=== PATIENT | female | born 1950 | race Caucasian/White ===

== ENCOUNTER 2022-03-27 14:05 | Inpatient (IN) | payer MEDICARE, SELFPAY ==
[2022-03-27 14:06] VITALS: BP 176/101; PULSE 68; RESP 16; TEMP 37.1; O2SAT 95; BMI 25.9
--- NOTE | 2022-03-27 14:14 | EX.ED.DYSGE1 ---
HPI History of Present Illness Chief Complaint: Lower Extremity Injury Detail of Chief Complaint: Fall with right hip injury Informant: patient Onset/Context/Timing Onset: Today Current Severity: Moderate Maximum Severity: Moderate Narrative Narrative: Patient present secondary to right hip injury. She was outside today and lost her balance, falling onto her right side. She is complaining of pain to the right hip. She denies striking her head or loss of consciousness. She reports balance problems with chronic right-sided weakness after a stroke several years ago. She does not take anticoagulants. [facility] Medical History Hx of completed stroke Hyperlipidemia Hypertension Home Medications amlodipine 5 mg tablet 5 mg PO DAILY ##30 05/15/14 [Rx Last Taken Unknown] atorvastatin 80 mg tablet 80 mg PO QHS ##30 05/15/14 [Rx Last Taken Unknown] lisinopril 20 mg tablet 20 mg PO BID ##60 05/15/14 [Rx Last Taken Unknown] Allergy/AdvReac Type Severity Reaction Status Date / Time No Known Allergies Allergy Verified 04/20/14 17:02 Social History Smoking Status: Never smoker ROS ROS ED Constitutional Constitutional ED: Denies chills or fever(s) Eyes Eyes: Denies change in vision or discharge from eye(s) ENT ENT ED: Denies discharge from eye(s), rhinorrhea or sore throat Cardiovascular Cardiovascular: Denies chest pain or palpitations Respiratory/Chest Respiratory/Chest: Denies cough or dyspnea Gastrointestinal Gastrointestinal: Denies abdominal pain, diarrhea, nausea or vomiting Genitourinary Genitourinary ED: Denies difficulty urinating or dysuria Musculoskeletal Musculoskeletal: Reports extremity pain; Denies back pain Integumentary Denies Abrasions or rash Neurologic Neurologic: Denies headache(s) or weakness Allergic/Immunologic Allergic/Immunologic ED: Denies lip swelling or urticaria EXAM Physical Exam Const Vital Signs: 03/27/22 14:06 Temperature 98.8 F Temperature Source Temporal Pulse Rate 68 Respiratory Rate 16 Blood Pressure 176/101 H Blood Pressure Mean 126 Pulse Ox 95 Oxygen Delivery Method Room Air Positive well nourished and well developed General Appearance ED: well developed HEENT Reports normocephalic and head/scalp atraumatic Eyes PERRL and EOMs intact bilaterally Neck supple Chest Wall inspection of chest normal and palpation of chest normal Resp normal respiratory effort and clear to auscultation bilaterally Cardio regular rate and regular rhythm GI normal to inspection, nondistended, normoactive bowel sounds Palpation: soft Extremity Extremity Narrative: Mild tenderness to the right hip. Mild tenderness with logroll. Good distal pulses. Neuro oriented x3 and no sensory deficits noted Neuro Narrative: Chronic right-sided weakness secondary to prior stroke. Sensorium / Orientation: alert Psych mental status grossly normal Skin no rashes or lesions noted MDM MDM MDM Narrative Medical decision making narrative: Patient was given fentanyl and Zofran for pain control. X-ray obtained along with lab work. Lab Data Attestation: I reviewed the patient's lab results. Labs: Laboratory Results - last 24 hr 03/27/22 03/27/22 14:23 14:23 WBC 8.5 RBC 4.30 Hgb 12.5 Hct 37.0 MCV 86.0 MCH 29.1 MCHC 33.8 RDW Std Deviation 43.1 RDW Coeff of Quinten 13.8 Plt Count 263 MPV 9.8 Immature Gran % (Auto) 1.100 H Neut % (Auto) 52.0 Lymph % (Auto) 35.6 [place] % (Auto) 7.8 Eos % (Auto) 3.0 Baso % (Auto) 0.5 Absolute Neuts (auto) 4.4 Absolute Lymphs (auto) 3.01 Nucleated RBC % 0 Sodium 141 Potassium 3.6 Chloride 107 Carbon Dioxide 27.0 Anion Gap 7 BUN 21 H Creatinine 0.71 Estim Creat Clear Calc 41.45 Est GFR (MDRD) Af Amer 103 Est GFR (MDRD) Non-Af 85 BUN/Creatinine Ratio 29.5 H Glucose 138 H Calcium 8.9 Treatment and Re-Evaluation Narrative: Hip and pelvis x-rays per my interpretation reveal a right femoral neck fracture. Lab work is unremarkable. Test results discussed with patient and family at bedside. I will speak with orthopedics as well as hospitalist for admission. Discharge Plan Triage Chief Complaint: Lower Extremity Injury ED Provider: Tomeka Messina Dx/Rx/DC Orders Clinical Impression: Fracture of right hip Prescriptions: No Action amlodipine 5 MG tablet 5 mg PO DAILY Qty: 30 0RF Label Comments: blood pressure atorvastatin 80 MG tablet 80 mg PO QHS Qty: 30 0RF Label Comments: cholesterol lowering lisinopril 20 MG tablet 20 mg PO BID Qty: 60 0RF Label Comments: reduce blood pressure Primary Care Provider: Wolf Puentes Referrals: Wolf Puentes DO [Primary Care Provider] - Disposition Disposition: Acute Care Hospital [facility]
[2022-03-27] MEDS: fentaNYL 100 MCG/2 ML Ampul 25 MCG IV (14:18)
[2022-03-27] MEDS: Ondansetron 4 MG/2 ML Vial IV (14:18)
[2022-03-27 14:31] LABS: Absolute Lymphocyte Count 3.01 X10^3/uL (0.83-4.51); Absolute Neutrophil Count 4.4 X10^3/uL (2.0-7.7); Basophil# 0.04 X10^3/uL; Basophil% 0.5 % (0-1); Eosinophil# 0.25 X10^3/uL; Hemoglobin 12.5 g/dL (12.0-15.0); Lymphocyte # 3.01 X10^3/ul (0.83-4.51); Lymphocyte % 35.6 % (19-41); Mean Corp Hgb Conc 33.8 g/dL (32-36); Mean Corpuscular Hgb 29.1 pg (27.0-32.0); Mean Platelet Vol. 9.8 fl (6.2-12.0); Monocyte# 0.66 X10^3/uL; Monocyte% 7.8 % (0-10); NRBC Flagged by Analyzer 0 % (0-5); Platelet Count 263 K/mm3 (150-450); RBC Distribution Width CV 13.8 % (11.6-14.6); RBC Distribution Width SD 43.1 fl (35.1-43.9); White Blood Count 8.5 K/mm3 (4.4-11.0)
--- NOTE | 2022-03-27 14:33 | RAD_ITS ---
STUDY: X-RAY - PELVIS AND RIGHT HIP REASON FOR EXAM: Female, 71 years old. PAIN injury TECHNIQUE: XR Hip Unilateral with Pelvis when performed; 2-3 Views COMPARISON: None. FINDINGS: There is a non-specific bowel gas pattern. Normal visualized soft tissue structures. There are degenerative changes of the lumbar spine. Normal bilateral iliac wings, sacroiliac joints and visualized sacrum. Normal bilateral superior and inferior pubic rami. Normal pubic symphysis. Normal bilateral ischial tuberosities. Right femoral neck fracture. No significant displacement. Normal acetabulum. Normal hip joint. RAD/HIP, UNI W/ Pelvis 2-3 Views IMPRESSION: Right femoral neck fracture. No significant displacement. Electronically Signed: Daniel Paul MD at 15:08 EDT ,
[2022-03-27 14:44] LABS: Anion Gap 7 (5-15); BUN 21 mg/dL (7-18); BUN/Creat Ratio 29.5 RATIO (10-20); Calcium,Total 8.9 mg/dL (8.5-10.1); Chloride 107 mmol/L (98-107); Creatinine, Serum 0.71 mg/dL (0.55-1.02); EST Glomerular Filtration Rate 85 mL/min (>60); Est Glom Filt Rate - Afr Amer 103 mL/min (>60); Estimated Creatinine Clearance 41.45 ml/min; Glucose 138 mg/dL (74-106); Potassium 3.6 mmol/L (3.5-5.1); Sodium Level 141 mmol/L (136-145)
[2022-03-27 15:12] VITALS: BP 154/88; PULSE 81; RESP 16; TEMP 36.6; O2SAT 96
--- NOTE | 2022-03-27 15:15 | PCM.HP.STD ---
HPI - General General Date of Admission: 03/27/22 Date of Service: 03/27/22 Chief Complaint: Fall, right hip fracture HPI Narrative SAMEER BEDOYA, is a 71 F who presents after a fall. Patient has past medical history of CVA with residual right-sided weakness, hypertension who was out in the garden, without her cane, and was turning around to go through the trash away when she lost her balance and fell. She denied tripping over any object. EMS report however said patient had tripped over a brick. She stated that she was feeling well in the morning. Denied dizziness or palpitations or feeling unwell prior to fall. She has sudden pain in her hip, unable to get up and bear weight. Vitals in ED showed blood pressure 176/101, heart rate 80, respiratory 16, temperature 98.8 F, SPO2 95% on room air. Her admitting CBCD, CMP are unremarkable. X-ray of the hip shows right femoral neck fracture. [facility] Medical History Hx of completed stroke Hyperlipidemia Hypertension Home Medications amlodipine 5 mg tablet 5 mg PO DAILY ##30 05/15/14 [Rx Last Taken Unknown] atorvastatin 80 mg tablet 80 mg PO QHS ##30 05/15/14 [Rx Last Taken Unknown] lisinopril 20 mg tablet 20 mg PO BID ##60 05/15/14 [Rx Last Taken Unknown] Allergy/AdvReac Type Severity Reaction Status Date / Time No Known Allergies Allergy Verified 04/20/14 17:02 no significant family history no surgical history Social History (Updated 03/27/22 @ 15:[address] Tanisha Christie MD) household members: none Smoking Status: Never smoker alcohol intake: never substance use type: does not use ROS ROS Narrative Constitutional: Denies: Anorexia, Chills, Fever, Night Sweats, Weight Change Eyes: Denies: Blurred vision, Cataracts, Conjunctivae Inflammation, Pain, Redness, Vision Change HEENT: Denies: Difficulty Hearing, Difficulty Swallowing, Head Aches, Hearing Changes, Sinus Congestion, Sinus Drainage Cardiovascular: Denies: Chest Pain, Orthopnea, Palpitations Respiratory: Denies: Cough, Shortness of breath at rest, Sputum production Gastrointestinal: Denies: Abdominal Pain, Nausea, Vomiting Genitourinary: Denies: Dysuria Musculoskeletal: See HPI Skin: Denies: Rash, Wounds Neurological: Denies: Numbness, Tingling, Focal weakness Vital Signs Vital Signs Vital Signs: 03/27/22 14:06 Temperature 98.8 F Temperature Source Temporal Pulse Rate 68 Respiratory Rate 16 Blood Pressure 176/101 H Blood Pressure Mean 126 Pulse Ox 95 Oxygen Delivery Method Room Air Weight Weight: 66.4 kg Body Mass Index (BMI) 25.9 Physical Exam Narrative Physical exam: General: Alert, Oriented x3, Cooperative, appears to be in pain HEENT: Atraumatic Oral: Moist Mucosa Neck: Supple Lungs: Clear to auscultation Cardiovascular: HS I+II, regular, no murmurs Abdomen: Bowel Sounds Present, Soft, Non Tender Extremities: No edema, tenderness over the right hip Skin: No rashes, No breakdown Neurological: Grossly intact Psych/Mental Status: Appropriate Results Lab / Micro Data Result Diagrams: 03/27/22 14:23 03/27/22 14:23 Labs: Laboratory Results - last 24 hr 03/27/22 14:23: WBC 8.5, RBC 4.30, Hgb 12.5, Hct 37.0, MCV 86.0, MCH 29.1, MCHC 33.8, RDW Std Deviation 43.1, RDW Coeff of Quinten 13.8, Plt Count 263, MPV 9.8, Immature Gran % (Auto) 1.100 H, Neut % (Auto) 52.0, Lymph % (Auto) 35.6, [place] % (Auto) 7.8, Eos % (Auto) 3.0, Baso % (Auto) 0.5, Absolute Neuts (auto) 4.4, Absolute Lymphs (auto) 3.01, Nucleated RBC % 0 03/27/22 14:23: Sodium 141, Potassium 3.6, Chloride 107, Carbon Dioxide 27.0, Anion Gap 7, BUN 21 H, Creatinine 0.71, Estim Creat Clear Calc 41.45, Est GFR (MDRD) Af Amer 103, Est GFR (MDRD) Non-Af 85, BUN/Creatinine Ratio 29.5 H, Glucose 138 H, Calcium 8.9 Radiology Impression Hip/Pelvis X-Ray 03/27/22 14:33 IMPRESSION: Right femoral neck fracture. No significant displacement. Electronically Signed: Daniel Paul MD at 15:08 EDT Reading Location ID and State: [facility] / [place] , Service support , Assessment & Plan Assessment/Plan (1) Fracture of right hip: PLAN: Plan 1. Acute right hip fracture, traumatic, status post fall X-ray of the hip shows right femoral neck fracture Pain is fairly uncontrolled Orthopedics consulted from the ED Continue on scheduled Tylenol, as needed oxycodone and morphine 2. Hypertension/hyperlipidemia/history of CVA Continue amlodipine, atorvastatin Hold lisinopril in the light of probable hemodynamic instability from surgery Hydralazine prn 3. DVT prophylaxis?heparin subcu 4. I discussed and explained in details the various types of CODE STATUS-full code, DNR CCA, DNR CC. Patient chose to be DNR CCA no intubation. She does not want any aggressive cardiopulmonary resuscitation in the event of a cardiac arrest. Time spent discussing CODE STATUS 16 minutes Charges/Coding Visit Charges Inpatient E&M: 61629 Init Hosp L3 Procedures Hospitalists Procedures: 45689 Advncd Care Plan 30 Min
--- NOTE | 2022-03-27 15:16 | CON.PCM.OR_ITS ---
HPI Consult Data Date of Consult: 03/27/22 HPI Narrative Reason for Consultation: Right hip fracture HPI Narrative: SAMEER BEDOYA, is a 71 F who presents with a right hip fracture. The had a ground-level fall today in the driveway. Tripped and fell no head injury or loss of consciousness. Unable to ambulate with right hip pain. No prior hip pain or discomfort. The patient normally ambulates with a cane inside the house occasionally as needed. They are here with their stepdaughter who does most of the driving and groceries for the patient besides that she lives alone and does some of her meals independently. [facility] Medical History Hx of completed stroke Hyperlipidemia Hypertension Home Medications amlodipine 5 mg tablet 5 mg PO DAILY ##30 05/15/14 [Rx Last Taken Unknown] atorvastatin 80 mg tablet 80 mg PO QHS ##30 05/15/14 [Rx Last Taken Unknown] lisinopril 20 mg tablet 20 mg PO BID ##60 05/15/14 [Rx Last Taken Unknown] Allergy/AdvReac Type Severity Reaction Status Date / Time No Known Allergies Allergy Verified 04/20/14 17:02 Family History no significant family his Surgical History H/O: hysterectomy Surgical History no surgical history Social History household members: none Smoking Status: Never smoker alcohol intake: never substance use type: does not use Vital Signs Vital Signs Vital Signs: 03/27/22 14:06 Temperature 98.8 F Temperature Source Temporal Pulse Rate 68 Respiratory Rate 16 Blood Pressure 176/101 H Blood Pressure Mean 126 Pulse Ox 95 Oxygen Delivery Method Room Air Weight Weight: 146 lb 6.191 oz Body Mass Index (BMI) 25.9 Physical Exam Const alert, oriented x3, no apparent distress, average body habitus, healthy appearing and well nourished General Appearance: cooperative Orientation / Consciousness: awake Extremity normal to inspection, normal capillary refill, no joint enlargement and no calf tenderness Extremity Narrative: On the right side this is a closed neurovascularly intact injury. Good dorsalis pedis pulse she is able wiggle her toes dorsiflex and plantarflex the foot. Mild diminished sensation throughout the foot but she states it is at her baseline given the past history of stroke. Pain at the hip with palpation. No pain at the knee foot or ankle. Lab / Micro Data Result Diagrams: 03/27/22 14:23 03/27/22 14:23 Labs: Laboratory Results - last 24 hr 03/27/22 14:23: WBC 8.5, RBC 4.30, Hgb 12.5, Hct 37.0, MCV 86.0, MCH 29.1, MCHC 33.8, RDW Std Deviation 43.1, RDW Coeff of Quinten 13.8, Plt Count 263, MPV 9.8, Immature Gran % (Auto) 1.100 H, Neut % (Auto) 52.0, Lymph % (Auto) 35.6, [place] % (Auto) 7.8, Eos % (Auto) 3.0, Baso % (Auto) 0.5, Absolute Neuts (auto) 4.4, Absolute Lymphs (auto) 3.01, Nucleated RBC % 0 03/27/22 14:23: Sodium 141, Potassium 3.6, Chloride 107, Carbon Dioxide 27.0, Anion Gap 7, BUN 21 H, Creatinine 0.71, Estim Creat Clear Calc 41.45, Est GFR (MDRD) Af Amer 103, Est GFR (MDRD) Non-Af 85, BUN/Creatinine Ratio 29.5 H, Glucose 138 H, Calcium 8.9 Radiology Impression Hip/Pelvis X-Ray 03/27/22 14:33 IMPRESSION: Right femoral neck fracture. No significant displacement. Electronically Signed: Daniel Paul MD at 15:08 EDT Reading Location ID and State: [facility] / [place] , Service support , There is a right what appears to be a valgus impacted femoral neck fracture near the base of the neck the lateral aspect of the femoral neck appears mostly intact with some mild widening at the medial fracture site. Otherwise the bone quality appears normal with normal joint space. Assessment & Plan Assessment/Plan (1) Fracture of right hip: PLAN: 71-year-old female with a what appears to be a Garden type I (possibly 2) valgus impacted femoral neck fracture with minimal displacement overall this would be recommended for surgical intervention. Whether to perform an open reduction internal fixation (risk of nonunion or AVN) or an arthroplasty whether that be a hemiarthroplasty (worse functional outcomes) or total hip arthroplasty (higher dislocation risk) would be controversial. Given her stroke and past weakness I would be hesitant to perform an arthroplasty as she may have a higher than normal risk of hip muscle weakness and dislocation. That being said open reduction internal fixation has its own set of complications and different options available such as DHS with antirotation screw, cannulated screws, femoral neck system, TFN or gamma locking nail. These each have their onset of pros and cons risks and benefits however in this case my preferred treatment would be a short locking nail construct. We discussed the pros and cons risks and benefits of different options she would like to go ahead with surgery signed the consent form for that as well as possible need for blood products and I marked her right lower extremity as well as speaking with the outside sales representative insurance and the charge nurse [employer] worker. For now the patient can be diet as tolerated and we will plan to perform the case in the morning tomorrow. Pros and cons risks and benefits were discussed with the patient including but not limited to infection, pain, stiffness, bleeding, damage to surrounding structures, neurovascular injury, recurrence or retear, failure or wear of hardware or fixation, instability, fracture, deep vein thrombosis and pulmonary embolism, anesthetic risks, patient dissatisfaction, need for further surgery and other risks. Patient understood and wished to proceed with surgery, and signed the informed consent documentation. Other patient and surgery specific risks would be that this fracture not heal despite open reduction internal fixation and/or avascular necrosis and may go on to necessitate performing a arthroplasty and hardware removal.
--- NOTE | 2022-03-27 15:23 | NURSING ---
MED SURG NUAMAH RT HIP FX
[2022-03-27 15:49] VITALS: BP 133/69; PULSE 62; RESP 17; O2SAT 98
[2022-03-27 16:23] VITALS: BMI 23.7
[2022-03-27 16:26] VITALS: BP 186/83; PULSE 70; RESP 18; TEMP 37.2; O2SAT 94
[2022-03-27] MEDS: 0.9% Normal Saline 1,000 ML 75 ML IV (17:00)
[2022-03-27] MEDS: Morphine 2 MG/ML Syringe IV (17:00)
--- NOTE | 2022-03-27 17:27 | EKG12_ITS ---
Test Reason : RHYTHM CHANGE Blood Pressure : / mmHG Vent. Rate : 151 BPM Atrial Rate : 147 BPM P-R Int : 000 ms QRS Dur : 080 ms QT Int : 272 ms P-R-T Axes : 000 074 -42 degrees QTc Int : [address] depression, consider subendocardial injury Abnormal ECG Confirmed by IMTIAZ HILTON, LEXIE ([id number]), multimedia editor PIYUSH MARMOLEJO ([id number]) on 03/31/2022 11:37:51 AM Referred By: SEJAL Confirmed By:LEXIE KITCHEN MD
[2022-03-27 18:56] VITALS: BP 155/63; PULSE 88
[2022-03-27 20:11] VITALS: BP 158/80; PULSE 60; RESP 16; TEMP 37.4; O2SAT 94
[2022-03-27] MEDS: Acetaminophen 500 MG Tablet 1000 MG PO (20:30)
[2022-03-27] MEDS: amLODIPine 5 MG Tablet PO (20:30)
[2022-03-27] MEDS: oxyCODONE 5 MG Tablet 10 MG PO (20:30)
[2022-03-27] MEDS: Atorvastatin Calcium 80 MG Tablet PO (20:30)
[2022-03-28] VITALS (13 sets, daily range): BP systolic 137–172; BP diastolic 65–91; PULSE 57–84; RESP 16–18; TEMP 36.2–37.2; O2SAT 85–98; BMI 24.1; BMI 24.2
[2022-03-28 05:31] LABS: Absolute Lymphocyte Count 1.79 X10^3/uL (0.83-4.51); Absolute Neutrophil Count 5.4 X10^3/uL (2.0-7.7); Basophil# 0.03 X10^3/uL; Basophil% 0.4 % (0-1); Eosinophil# 0.26 X10^3/uL; Eosinophils% 3.1 % (0-5); Hematocrit 35.4 % (37-47); Hemoglobin 12.3 g/dL (12.0-15.0); Lymphocyte # 1.79 X10^3/ul (0.83-4.51); Lymphocyte % 21.6 % (19-41); Mean Corp Hgb Conc 34.7 g/dL (32-36); Mean Corpuscular Hgb 30.1 pg (27.0-32.0); Mean Corpuscular Volume 86.6 fL (81-99); Monocyte# 0.75 X10^3/uL; Monocyte% 9.1 % (0-10); NRBC Flagged by Analyzer 0 % (0-5); Neutrophil # 5.42 X10^3/uL (2.7-7.7); Neutrophil % 65.4 % (47-70); Platelet Count 210 K/mm3 (150-450); RBC Distribution Width CV 13.7 % (11.6-14.6); RBC Distribution Width SD 43.6 fl (35.1-43.9); Red Blood Count 4.09 M/mm3 (4.2-5.4); White Blood Count 8.3 K/mm3 (4.4-11.0)
[2022-03-28] MEDS: Morphine 2 MG/ML Syringe IV ×3 (05:41→17:13)
[2022-03-28] MEDS: 0.9% Normal Saline 1,000 ML 75 ML IV (06:00)
[2022-03-28 06:01] LABS: AST(SGOT) 19 U/L (15-37); Alanine Aminotransfer ALT/SGPT 20 U/L (13-56); Albumin, Serum 3.1 g/dL (3.2-5.0); Alkaline Phosphatase 88 U/L (45-117); Anion Gap 6 (5-15); BUN 18 mg/dL (7-18); BUN/Creat Ratio 28.1 RATIO (10-20); Calcium,Total 8.1 mg/dL (8.5-10.1); Chloride 110 mmol/L (98-107); Creatinine, Serum 0.64 mg/dL (0.55-1.02); EST Glomerular Filtration Rate 97 mL/min (>60); Est Glom Filt Rate - Afr Amer 117 mL/min (>60); Estimated Creatinine Clearance 41.45 ml/min; Globulin 3.1 g/dL (2.2-4.2); Glucose 98 mg/dL (74-106); Potassium 3.5 mmol/L (3.5-5.1); Protein, Total 6.2 g/dL (6.4-8.2); Sodium Level 141 mmol/L (136-145)
--- NOTE | 2022-03-28 07:12 | RAD_ITS ---
STUDY: X-RAY - PELVIS AND RIGHT HIP REASON FOR EXAM: Female, 71 years old. RIGHT HIP GAMMA NAIL TECHNIQUE: 2 views of the pelvis and hip. COMPARISON: 03/27/2022 FINDINGS: Fluoroscopy the right hip was utilized and operating room during open reduction internal fixation of fracture the femoral neck with a femoral neck compression screw and intramedullary abigail.. RAD/HIP, UNI W/ Pelvis 2-3 Views IMPRESSION: Fluoroscopy during open reduction internal fixation of femoral neck fracture. Electronically Signed: Kilo Ramsey MD at 12:25 EDT ,
[2022-03-28] MEDS: Lactated Ringers 1,000 ML 15 ML IV ×2 (07:15→09:00)
[2022-03-28] MEDS: Cefazolin 2 GM in 0.9% Normal Saline 100 ML IV (07:18)
--- NOTE | 2022-03-28 08:24 | PN.HOSP_ITS ---
Subjective Subjective Follow-up on acute right hip fracture: Patient was seen and examined. She had surgery done today. She was seen in the immediate postop period. She appears relatively lethargic, complaints of pain. On 2 L of oxygen. Objective Data Objective Data Vital Signs: Vital Signs Temp Pulse Resp BP Pulse Ox O2 Del Method 98.2 F 59 L 16 151/68 H 92 Room Air 03/28/22 06:36 03/28/22 06:36 03/28/22 06:36 03/28/22 06:36 03/28/22 06:36 03/28/22 06:36 Oxygen Delivery Method Room Air Weight: 61.9 kg Body Mass Index (BMI) 24.1 Intake & Output: Intake and Output for Last 24 Hours 03/26/22 03/27/22 03/28/22 23:59 23:59 23:59 Intake Total 1885 / 1885 Output Total 650 / 1075 825 / 825 Balance -650 / -275 1060 / 1060 Lab / Micro Data Result Diagrams: 03/28/22 05:11 03/28/22 05:11 Labs: Laboratory Results - last 24 hr 03/27/22 14:23: WBC 8.5, RBC 4.30, Hgb 12.5, Hct 37.0, MCV 86.0, MCH 29.1, MCHC 33.8, RDW Std Deviation 43.1, RDW Coeff of Quinten 13.8, Plt Count 263, MPV 9.8, Immature Gran % (Auto) 1.100 H, Neut % (Auto) 52.0, Lymph % (Auto) 35.6, [place] % (Auto) 7.8, Eos % (Auto) 3.0, Baso % (Auto) 0.5, Absolute Neuts (auto) 4.4, Absolute Lymphs (auto) 3.01, Nucleated RBC % 0 03/27/22 14:23: Sodium 141, Potassium 3.6, Chloride 107, Carbon Dioxide 27.0, Anion Gap 7, BUN 21 H, Creatinine 0.71, Estim Creat Clear Calc 41.45, Est GFR (MDRD) Af Amer 103, Est GFR (MDRD) Non-Af 85, BUN/Creatinine Ratio 29.5 H, Gluc ose 138 H, Calcium 8.9 03/28/22 05:11: WBC 8.3, RBC 4.09 L, Hgb 12.3, Hct 35.4 L, MCV 86.6, MCH 30.1, MCHC 34.7, RDW Std Deviation 43.6, RDW Coeff of Quinten 13.7, Plt Count 210, MPV 10.0, Immature Gran % (Auto) 0.400, Neut % (Auto) 65.4, Lymph % (Auto) 21.6, [place] % (Auto) 9.1, Eos % (Auto) 3.1, Baso % (Auto) 0.4, Absolute Neuts (auto) 5.4, Absolute Lymphs (auto) 1.79, Nucleated RBC % 0 03/28/22 05:11: Sodium 141, Potassium 3.5, Chloride 110 H, Carbon Dioxide 25.0, Anion Gap 6, BUN 18, Creatinine 0.64, Estim Creat Clear Calc 41.45, Est GFR (MDRD) Af Amer 117, Est GFR (MDRD) Non-Af 97, BUN/Creatinine Ratio 28.1 H, Glucose 98, Calcium 8.1 L, Total Bilirubin 1.00, AST 19, ALT 20, Alkaline Phosphatase 88, Total Protein 6.2 L, Albumin 3.1 L, Globulin 3.1, Albumin/Globulin Ratio 1.0 03/28/22 05:11: Blood Type O POSITIVE, Antibody Screen NEGATIVE Radiography Diagnostic Testing: Radiology Impression Hip/Pelvis X-Ray 03/27/22 14:33 IMPRESSION: Right femoral neck fracture. No significant displacement. Electronically Signed: Daniel Paul MD at 15:08 EDT Reading Location ID and State: [facility]– [place][note 2] / [place] , Service support , Physical Exam Narrative Physical exam: General: Alert, Oriented x3, Cooperative, appears to be in pain, on 2 L of oxygen HEENT: Atraumatic Oral: Moist Mucosa Neck: Supple Lungs: Diminished to auscultation Cardiovascular: HS I+II, regular, no murmurs Abdomen: Bowel Sounds Present, Soft, Non Tender Extremities: No edema, tenderness over the right hip Skin: No rashes, No breakdown Neurological: Grossly intact Psych/Mental Status: Appropriate Assessment & Plan Assessment/Plan (1) Fracture of right hip: PLAN: Plan 1. POD #0, started as follows right hip ORIF for acute right hip fracture, Traumatic, status post fall Admitted x-ray of the hip shows right femoral neck fracture Pain is fairly uncontrolled Follow-up on orthopedics recommendation, PT/OT to evaluate and treat Continue on scheduled Tylenol, as needed oxycodone and morphine 2. Hypertension/hyperlipidemia/history of CVA, fairly uncontrolled on account of pain Continue amlodipine, atorvastatin Continue to Hold lisinopril for now; may resume tomorrow if renal function continues to be stable Hydralazine prn 3. DVT prophylaxis?per orthopedics - SCDs today and Xarelto from tomorrow Charges/Coding Visit Charges Inpatient E&M: 59387 Subs Hosp L2
--- NOTE | 2022-03-28 09:15 | PCM.OPRPT ---
Problems Associated Problem List Diagnoses (1) Fracture of right hip: Report of Operation Date of Procedure: 03/28/22 Pre-Operative Diagnosis: Right hip fracture Post-Operative Diagnosis: Right hip fracture Surgery/Procedure Performed:: Right hip open reduction internal fixation Description of Surgical Findings:: Right hip femoral neck fracture Surgeon: Bg Reagan Type of Anesthesia: General Anesthesiologist: Alexandro Benites Estimated Blood Loss (mL): 50 Description of Procedure: Patient was brought to the operating room theater. They were placed supine on the fracture table. Right leg in traction left leg attached to the middle of the bed in scissoring position appropriately padded including the peroneal nerve padded. General anesthesia induced. 2 g of IV Ancef administered prior to the start of the case. Right lower extremity prepped and draped in the usual sterile fashion with chlorhexidine-based prep solution allowing over 3 minutes drying time prior to draping with a shower curtain sterile drape. Preoperative timeout was performed to confirm the site patient with surgery. I began by checking the fracture alignment. I did not have to put on any traction I slightly internally rotated the hip to maintain a good reduction. I then started the case by making a small stab incision 3 cm proximal to the level of the greater trochanter of the hip. I used a 3.2 mm partially-threaded guidewire at the tip of the greater trochanter on both AP and lateral radiographs and advances towards the lesser trochanter in line with the shaft of the femur. We then used a soft tissue protector and the opening reamer. I then slid a ball-tipped guidewire down the femur. I slightly made the incision bigger, about 1.5 inches long longitudinal. I then used the Manuel gamma nail with a 125 degree neck shaft angle, 11 mm diameter, 180 mm in length. I inserted this to an appropriate depth. I use the drop-down guide again using percutaneous technique. I inserted the guidewire through the center of the femoral neck and advanced to subchondral bone erring slightly inferior and posterior. I ensured to maintain an appropriate reduction of the femoral neck fracture and there was some slight amount of gapping medially putting this into valgus however I chose to accept this as it is physiologically advantageous and in the literature decreases the rate of implant failure or screw cut out. I removed the ball-tipped guidewire. I reamed over the 3.2 mm guidewire to a depth of 95 mm and then inserted the gamma 3 lag screw 10.5 mm in diameter at 95 mm in length, to try to get as close as possible to TAD <25mm. I then inserted the set screw proximally to lock the rotation. Next I turned my attention distally again using percutaneous technique to insert the fully threaded locking screw did not dynamize this. The length was 37.5 mm and this was a size 5 screw. Guides were removed final pictures taken and saved to the system both proximally and distally AP and lateral radiographs. Wounds were thoroughly irrigated followed by closure of subcutaneous tissue with 2-0 Vicryl and skin with 3-0 Monocryl. Skin was cleaned with wet and dry dressing followed by application of Steri-Strips Xeroform gauze and clear plastic dressing. Case was terminated patient woken up from general anesthetic taken out of the traction set up transferred off the operating room table and taken to postanesthetic care unit in stable condition. All sponge needle instrument counts were correct no complications. Plan for the patient partial weightbearing for 6 weeks with anticoagulation to be decided between myself and the hospitalist starting postoperative day 1. Follow-up in the office in 2 weeks time. Grafts/Implants Used: Manuel Gamma3 nail short Complications none Admit VTE Documentation VTE Present on Admission: No VTE Mechan Device Prophylaxis: SCD's VTE Pharm Prophylaxis ordered?: Yes Procedures Musculoskeletal [id number]-29xxx: 09080 Pelvis/hip joint surgery
[2022-03-28] MEDS: amLODIPine 5 MG Tablet PO (12:45)
[2022-03-28] MEDS: 0.9% Saline Lock 10 ML Syringe IV ×2 (12:57→17:13)
[2022-03-28] MEDS: Acetaminophen 500 MG Tablet 1000 MG PO ×2 (14:39→20:46)
[2022-03-28] MEDS: Ondansetron 4 MG/2 ML Vial IV (17:13)
[2022-03-28] MEDS: oxyCODONE 5 MG Tablet 10 MG PO (20:46)
[2022-03-28] MEDS: Atorvastatin Calcium 80 MG Tablet PO (20:46)
[2022-03-29] MEDS: oxyCODONE 5 MG Tablet 10 MG PO (00:59)
[2022-03-29 02:30] VITALS: BP 123/65; PULSE 57; RESP 15; TEMP 36.9; O2SAT 92
[2022-03-29 02:33] VITALS: BMI 24.2
[2022-03-29 05:13] LABS: Absolute Lymphocyte Count 1.83 X10^3/uL (0.83-4.51); Absolute Neutrophil Count 6.1 X10^3/uL (2.0-7.7); Basophil# 0.02 X10^3/uL; Basophil% 0.2 % (0-1); Eosinophil# 0.26 X10^3/uL; Eosinophils% 2.8 % (0-5); Hematocrit 33.3 % (37-47); Hemoglobin 11.4 g/dL (12.0-15.0); Lymphocyte # 1.83 X10^3/ul (0.83-4.51); Mean Corp Hgb Conc 34.2 g/dL (32-36); Mean Corpuscular Hgb 28.9 pg (27.0-32.0); Mean Corpuscular Volume 84.5 fL (81-99); Mean Platelet Vol. 10.2 fl (6.2-12.0); Monocyte# 0.88 X10^3/uL; Monocyte% 9.6 % (0-10); NRBC Flagged by Analyzer 0 % (0-5); Neutrophil # 6.14 X10^3/uL (2.7-7.7); Neutrophil % 67.1 % (47-70); Platelet Count 205 K/mm3 (150-450); RBC Distribution Width CV 13.4 % (11.6-14.6); RBC Distribution Width SD 41.7 fl (35.1-43.9); Red Blood Count 3.94 M/mm3 (4.2-5.4); White Blood Count 9.2 K/mm3 (4.4-11.0)
[2022-03-29 05:37] LABS: AST(SGOT) 21 U/L (15-37); Alanine Aminotransfer ALT/SGPT 19 U/L (13-56); Albumin, Serum 3.1 g/dL (3.2-5.0); Alkaline Phosphatase 84 U/L (45-117); Anion Gap 6 (5-15); BUN 16 mg/dL (7-18); Calcium,Total 7.8 mg/dL (8.5-10.1); Chloride 107 mmol/L (98-107); Creatinine, Serum 0.64 mg/dL (0.55-1.02); EST Glomerular Filtration Rate 97 mL/min (>60); Est Glom Filt Rate - Afr Amer 117 mL/min (>60); Estimated Creatinine Clearance 41.45 ml/min; Globulin 3.1 g/dL (2.2-4.2); Glucose 97 mg/dL (74-106); Potassium 3.3 mmol/L (3.5-5.1); Protein, Total 6.2 g/dL (6.4-8.2); Sodium Level 140 mmol/L (136-145)
[2022-03-29] MEDS: Acetaminophen 500 MG Tablet 1000 MG PO ×2 (06:16→20:49)
[2022-03-29 06:18] VITALS: BMI 24.2
--- NOTE | 2022-03-29 07:35 | PCM.PN.HOSP ---
Subjective Subjective Seen and examined Patient feeling nausea probably after opioid medications. Zofran given but is still symptomatic therefore Reglan ordered Objective Data Objective Data Vital Signs: Vital Signs Temp Pulse Resp BP Pulse Ox O2 Del Method O2 Flow Rate 98.4 F 57 L 15 123/65 H 92 Room Air 2 03/29/22 02:30 03/29/22 02:30 03/29/22 02:30 03/29/22 02:30 03/29/22 02:30 03/29/22 03:30 03/28/22 19:40 Oxygen Flow Rate (L/min) 2 Oxygen Delivery Method Room Air Weight: 136 lb 7.458 oz Body Mass Index (BMI) 24.1 Intake & Output: Intake and Output for Last 24 Hours 03/27/22 03/28/22 03/29/22 23:59 23:59 23:59 Intake Total 4356.75 / 4756.75 1000 / 1000 Output Total 650 / 1075 2175 / 2475 300 / 300 Balance -650 / -275 2181.75 / 2281.75 700 / 700 Lab / Micro Data Result Diagrams: 03/29/22 04:10 03/29/22 04:10 Labs: Laboratory Results - last 24 hr 03/29/22 04:10: WBC 9.2, RBC 3.94 L, Hgb 11.4 L, Hct 33.3 L, MCV 84.5, MCH 28.9, MCHC 34.2, RDW Std Deviation 41.7, RDW Coeff of Quinten 13.4, Plt Count 205, MPV 10.2, Immature Gran % (Auto) 0.300, Neut % (Auto) 67.1, Lymph % (Auto) 20.0, [place] % (Auto) 9.6, Eos % (Auto) 2.8, Baso % (Auto) 0.2, Absolute Neuts (auto) 6.1, Absolute Lymphs (auto) 1.83, Nucleated RBC % 0 03/29/22 04:10: Sodium 140, Potassium 3.3 L, Chloride 107, Carbon Dioxide 27.0, Anion Gap 6, BUN 16, Creatinine 0.64, Estim Creat Clear Calc 41.45, Est GFR (MDRD) Af Amer 117, Est GFR (MDRD) Non-Af 97, BUN/Creatinine Ratio 25.0 H, Glucose 97, Calcium 7.8 L, Total Bilirubin 1.10 H, AST 21, ALT 19, Alkaline Phosphatase 84, Total Protein 6.2 L, Albumin 3.1 L, Globulin 3.1, Albumin/Globulin Ratio 1.0 Radiography Diagnostic Testing: Radiology Impression Hip/Pelvis X-Ray 03/28/22 07:12 IMPRESSION: Fluoroscopy during open reduction internal fixation of femoral neck fracture. Electronically Signed: Kilo Ramsey MD at 12:25 EDT , Physical Exam Narrative General: Alert, Oriented x3, Cooperative, mild nauseated HEENT: Atraumatic, PERRLA, EOMI, Normocephalic Oral: No Gingival or Mucosal Lesions/ Ulcerations Neck: Supple, No JVD, Negative Carotid Bruits Lungs: Air entry diminished in bilateral lung bases. No crepitation/rhonchi Cardiovascular: Regular rate, Regular Rhythm, Normal S1, Normal S2, diastolic systolic murmur ordered right second ICS Abdomen: Bowel Sounds Present, Soft, Non Tender, Non-Distended : No renal angle tenderness. No suprapubic tenderness. Extremities: No edema, Capillary Refill Less than 3 Seconds Skin: No rashes, No breakdown Musculoskeletal: Right hip surgical dressing dry. No active bleeding/bruise or hematoma Neurological: Cranial nerves II-XII grossly intact, DTR 2+/4 Psych/Mental Status: Flat affect. Assessment & Plan Assessment/Plan (1) Fracture of right hip: PLAN: Plan 1. Acute valgus impacted right femoral neck fracture with minimal displacement probably pathological from osteoporosis: The patient fell down from standing height on the driveway after trip with history of stroke and previous weakness therefore it is pathological probably from osteoporosis. Admitted x-ray of the hip shows right femoral neck fracture Pain is fairly controlled. Pain medications optimized. Patient had right hip ORIF on 03/28/2022. Postop mild nausea probably due to pain medications. On symptomatic management. 2. Hypertension/hyperlipidemia/history of CVA, severe pain Continue amlodipine, atorvastatin BP 143/74. Hydralazine prn 3. DVT prophylaxis?per orthopedics - on Xarelto and SCD Charges/Coding Visit Charges Inpatient E&M: 45296 Subs Hosp L2
[2022-03-29] MEDS: Ondansetron 4 MG/2 ML Vial IV (07:52)
[2022-03-29] MEDS: 0.9% Saline Lock 10 ML Syringe IV ×3 (07:52→20:50)
[2022-03-29 08:16] VITALS: BP 144/62; PULSE 72; RESP 16; TEMP 36.9; O2SAT 95
[2022-03-29] MEDS: Metoclopramide 10 MG/2 ML Vial IV (09:36)
--- NOTE | 2022-03-29 09:55 | CASEMGMT ---
RN VIC Face to Face with patient for initial transition planning/care coordination assessment. RN VIC introduced self and role at [facility]. Patient lying in bed, alert and oriented, step daughter at bedside. Patient willing to participate in assessment and is able to answer all questions appropriately. Care providers, pharmacy, and demographics verified. Patient wishes to discharge to SNF at discharge for additional rehab. Patient was provided a list of SNF providers including quality and resource use data and consistent with the patient?s preferred geographic region, medical needs, and insurance network. Patient and daughter to review list and provide preferences. Patient states she has no further needs or concerns at this time. CM to follow for discharge planning needs that may arise. PCP: Deloris Specialists: none Preferred Pharmacy: [facility] Insurance: [employer] Prescription Benefit: yes Living Will/HPOA: yes, step daughter LNOK: step daughter Living Arrangements: Patient lives alone in a 2 story home with bed and bath on first floor. 3-6 steps to enter with railing. Patient states she was independent prior to fall Transportation: Daughter DME/HHC: Patient states she has shower chair, raised toilet, grab bars, and cane at home. Patient denies previous HHC or SNF. Disposition Plan: SNF pending acceptance and precert. Bernadine DEL CID, RN, CM
--- NOTE | 2022-03-29 11:18 | PN.ORTHO_ITS ---
Subjective Subjective POD 1 right hip ORIF for NOF doing well no pain to operative site, some slight nausea Objective Data Objective Data Vital Signs: Vital Signs Temp Pulse Resp BP Pulse Ox O2 Del Method O2 Flow Rate 98.4 F 72 16 144/62 H 95 Room Air 2 03/29/22 08:16 03/29/22 08:16 03/29/22 08:16 03/29/22 08:16 03/29/22 08:16 03/29/22 08:16 03/28/22 19:40 Oxygen Flow Rate (L/min) 2 Oxygen Delivery Method Room Air Weight: 136 lb 7.458 oz Body Mass Index (BMI) 24.1 Intake & Output: Intake and Output for Last 24 Hours 03/27/22 03/28/22 03/29/22 23:59 23:59 23:59 Intake Total 4356.75 / 4756.75 1000 / 1000 Output Total 650 / 1075 2175 / 2475 300 / 300 Balance -650 / -275 2181.75 / 2281.75 700 / 700 Lab / Micro Data Result Diagrams: 03/29/22 04:10 03/29/22 04:10 Labs: Laboratory Results - last 24 hr 03/29/22 04:10: WBC 9.2, RBC 3.94 L, Hgb 11.4 L, Hct 33.3 L, MCV 84.5, MCH 28.9, MCHC 34.2, RDW Std Deviation 41.7, RDW Coeff of Quinten 13.4, Plt Count 205, MPV 10.2, Immature Gran % (Auto) 0.300, Neut % (Auto) 67.1, Lymph % (Auto) 20.0, [place] % (Auto) 9.6, Eos % (Auto) 2.8, Baso % (Auto) 0.2, Absolute Neuts (auto) 6.1, Absolute Lymphs (auto) 1.83, Nucleated RBC % 0 03/29/22 04:10: Sodium 140, Potassium 3.3 L, Chloride 107, Carbon Dioxide 27.0, Anion Gap 6, BUN 16, Creatinine 0.64, Estim Creat Clear Calc 41.45, Est GFR (MDRD) Af Amer 117, Est GFR (MDRD) Non-Af 97, BUN/Creatinine Ratio 25.0 H, Glucose 97, Calcium 7.8 L, Total Bilirubin 1.10 H, AST 21, ALT 19, Alkaline Phosphatase 84, Total Protein 6.2 L, Albumin 3.1 L, Globulin 3.1, Albumin/Globulin Ratio 1.0 Radiography Diagnostic Testing: Radiology Impression Hip/Pelvis X-Ray 03/28/22 07:12 IMPRESSION: Fluoroscopy during open reduction internal fixation of femoral neck fracture. Electronically Signed: Kilo Ramsey MD at 12:25 EDT , Physical Exam Const alert, oriented x3 and no apparent distress Extremity normal capillary refill, no calf tenderness and no pedal edema Extremity Narrative: bandages dry, intact. Sensation right lower extremity at baseline, has baseline weakness in DF/PF of foot but warm and well perfused. Assessment & Plan Assessment/Plan (1) Fracture of right hip: PLAN: Plan Continue to follow. PWB right LE. FU in office 2 weeks. Anticoagulation ordered rivaroxaban and SCDs.
[2022-03-29 11:43] VITALS: BP 143/74; PULSE 73; RESP 16; TEMP 36.8; O2SAT 96
--- NOTE | 2022-03-29 12:29 | CASEMGMT ---
Social Work These are pt's choices for SNF: 1. [facility]. [facility] 3. [facility] 4. [facility] 5. [facility]. Referral will be faxed shortly. LARISSA Ballard
--- NOTE | 2022-03-29 13:27 | CASEMGMT ---
Discharge Facilities Coordinator Michela gutiérrez/mario administrative assistant coordinator sent referral over to Ginette at [facility]. Will follow up. Plan: [facility], Waiting Acceptance. Michela Eden Discharge Facilities Coordinator
[2022-03-29] MEDS: Potassium Chloride Oral Tablet 20 MEQ 40 MEQ PO (14:03)
[2022-03-29 15:24] VITALS: BP 137/79; PULSE 62; RESP 16; TEMP 36.7; O2SAT 93
--- NOTE | 2022-03-29 15:53 | CASEMGMT ---
Discharge Full Time Staff Interpreter Ginette reached out. Patient has been accepted at [facility]. RAMIRO Alvarado notified. Plan: [facility], Waiting pre-cert. Michela Eden Discharge Full Time Staff Interpreter
--- NOTE | 2022-03-29 15:59 | CASEMGMT ---
Social Work SW let pt know that LW/POA forms are not on file, she was already aware. LARISSA Ballard
--- NOTE | 2022-03-29 15:59 | CASEMGMT ---
Social Work SW let pt know that [facility] can take her. Initially she said she would prefer [facility], but then decided she was in agreement with [facility]. W/pt's permission, SW called pt's step daughter Darshana and let her know also pt accepted at [facility] and precert started. LARISSA Ballard
[2022-03-29] MEDS: Rivaroxaban 10 MG Tablet PO (16:57)
[2022-03-29 20:39] VITALS: BP 168/84; PULSE 73; RESP 18; TEMP 37.4; O2SAT 93
[2022-03-29 20:49] VITALS: BP 168/84; PULSE 73
[2022-03-29] MEDS: Atorvastatin Calcium 80 MG Tablet PO (20:49)
[2022-03-29] MEDS: hydrALAZINE 20 MG/ML Vial 5 MG IV (20:49)
[2022-03-30] VITALS (28 sets, daily range): BP systolic 108–142; BP diastolic 59–97; PULSE 58–159; RESP 13–26; TEMP 36.4–37.6; O2SAT 92–99
--- NOTE | 2022-03-30 03:57 | EKG12_ITS ---
Test Reason : PREOP Blood Pressure : / mmHG Vent. Rate : 061 BPM Atrial Rate : 061 BPM P-R Int : 206 ms QRS Dur : 080 ms QT Int : 378 ms P-R-T Axes : 045 070 070 degrees QTc Int : 380 ms Normal sinus rhythm Low voltage QRS (Limb Leads) Poor R wave progression Confirmed by IMTIAZ HILTON, LEXIE ([id number]), design editor PIYUSH MARMOLEJO ([id number]) on 03/30/2022 1:09:32 PM Referred By: JAVON Confirmed By:LEXIE KITCHEN MD
--- NOTE | 2022-03-30 04:00 | NURSING ---
this RN noticed irreg HR upon assessment. vitals obtained, pt placed on tele and was reading afib rhythm. pt has no hx of afib noted. called respiratory for a stat EKG. Dr Gallagher notified and new orders for metoprolol IV received. was ineffective and pt transferred to PCU per Dr Silva orders. see vital signs
--- NOTE | 2022-03-30 04:16 | ECHOD_ITS ---
[id number] ECHO^ECHOD^Echo Complete [id number] Reason For Study: ATRIAL FIB-FLUTTER Procedure This was a 2D Doppler, Color Flow transthoracic echocardiogram. The exam was of adequate technical quality. Exam performed portable in patient room. Left Ventricle Normal LV size. Left ventricular systolic function is normal. The estimated ejection fraction is 65 %. No evidence for diastolic dysfunction. No regional wall motion abnormalities noted. Right Ventricle Normal RV size. Normal systolic function. Atria The left atrium is mildly enlarged. Normal right atrium. No doppler evidence for ASD. Mitral Valve There is no mitral annular calcification. Mild focal mitral valve calcification of the posterior leaflet. Mild (1+) mitral valve insufficiency. Tricuspid Valve Normal tricuspid valve. Mild tricuspid valve insufficiency. Right ventricular systolic pressure estimated to be 33 mmHg. Aortic Valve Trisinus/trileaflet aortic valve. Normal aortic valve. Pulmonic Valve The pulmonic valve is not well visualized. Trivial pulmonic valve insufficiency. Great Vessels Normal sized aortic root. Pericardium/Pleural No pericardial effusion. MMode/2D Measurements & Calculations RVDd: 3.3 cm LVIDd: 3.9 cm FS: 33.4 % IVSd: 1.0 cm LVIDs: 2.6 cm LVPWd: 1.0 cm ESV(MOD-sp4): 24.4 ml Ao root diam: 3.1 cm LAV(MOD-bp): 52.4 ml LAV(MOD-bp) Indexed: 31.9 ml/m2 LAV(MOD-sp2): 48.9 ml LAV(MOD-sp4): 48.1 ml SV(MOD-sp4): 40.8 ml SV(sp4-el): 42.7 ml LVAd ap4: 22.4 cm2 LVLd ap4: 6.4 cm EDV(MOD-sp4): 65.2 ml EDV(sp4-el): 66.1 ml LVAs ap4: 12.2 cm2 LVLs ap4: 5.4 cm ESV(sp4-el): 23.4 ml EF(MOD-sp4): 62.6 % EF(sp4-el): 64.6 % LA A4 area: 18.0 cm2 LA dimension(2D): 3.3 cm RA A4 area: 16.6 cm2 Time Measurements MV dec time: 0.27 sec Doppler Measurements & Calculations MV E max guilherme: 77.9 cm/sec Lat Peak E' Guilherme: 7.8 cm/sec MV dec slope: 286.4 cm/sec2 MV A max guilherme: 66.2 cm/sec MV E/A: 1.2 Med Peak E' Guilherme: 8.3 cm/sec Ao V2 max: 120.5 cm/sec LV V1 max P.8 mmHg PA V2 max: 102.1 cm/sec Ao max P.8 mmHg LV V1 max: 109.7 cm/sec TR max guilherme: 273.8 cm/sec E/E' lat: 9.9 E/E' med: 9.3 TR max P.0 mmHg ECHO/Echo Complete Interpretation Summary Left ventricular systolic function is normal. The estimated ejection fraction is 65 %. The left atrium is mildly enlarged. Mild focal mitral valve calcification of the posterior leaflet. Mild (1+) mitral valve insufficiency. Mild tricuspid valve insufficiency. Trivial pulmonic valve insufficiency. Right ventricular systolic pressure estimated to be 33 mmHg. No evidence for diastolic dysfunction. Commentt: Transthoracic echocardiogram from 04-22-2014: Reported a negative agit ated saline contrast study for an interatrial shunt. Ordering Physician: Abhijeet Gallagher Referring Physician: MD Wolf Puentes Performed By: Aye Ochoa, RDNICKIE
[2022-03-30] MEDS: 0.9% Saline Lock 10 ML Syringe IV ×2 (04:17→05:21)
[2022-03-30] MEDS: Metoprolol Tartrate 5 MG/5 ML Vial IV (04:17)
--- NOTE | 2022-03-30 04:17 | PCM.PN.BLA ---
Progress Note Nurse reports that patient with HR 150 irregular. Seen at bedside. EKG Afib with rate of 151. Potassium 03/29/2022 and had a replacement. BMP in am, follow. Check Magnesium. Check TSH. Last echo 2013. Give metoprolol 5mg IVP. If heart rate remains elevated transfer to PCU.
--- NOTE | 2022-03-30 04:30 | PCM.PN.BLA ---
Progress Note With persistent Afib with RVR transfer to PCU. Stop amlodipine. Start cardizem drip.
--- NOTE | 2022-03-30 04:42 | NURSING ---
report called to [facility] on PCU at this time
[2022-03-30] MEDS: dilTIAZem 25 MG/5 ML Vial 5 MG IV BOLUS (05:18)
[2022-03-30 05:51] LABS: Absolute Lymphocyte Count 1.46 X10^3/uL (0.83-4.51); Absolute Neutrophil Count 7.5 X10^3/uL (2.0-7.7); Basophil# 0.04 X10^3/uL; Basophil% 0.4 % (0-1); Eosinophil# 0.17 X10^3/uL; Eosinophils% 1.7 % (0-5); Hematocrit 38.4 % (37-47); Lymphocyte # 1.46 X10^3/ul (0.83-4.51); Lymphocyte % 14.2 % (19-41); Mean Corp Hgb Conc 33.9 g/dL (32-36); Mean Corpuscular Hgb 28.9 pg (27.0-32.0); Mean Corpuscular Volume 85.3 fL (81-99); Mean Platelet Vol. 10.6 fl (6.2-12.0); Monocyte# 1.05 X10^3/uL; Monocyte% 10.2 % (0-10); NRBC Flagged by Analyzer 0 % (0-5); Neutrophil # 7.49 X10^3/uL (2.7-7.7); Neutrophil % 72.8 % (47-70); Platelet Count 252 K/mm3 (150-450); RBC Distribution Width CV 13.8 % (11.6-14.6); RBC Distribution Width SD 42.5 fl (35.1-43.9); White Blood Count 10.3 K/mm3 (4.4-11.0)
[2022-03-30 06:15] LABS: ALB/GLOB Ratio 0.8 RATIO (0.9-2.4); AST(SGOT) 28 U/L (15-37); Alanine Aminotransfer ALT/SGPT 21 U/L (13-56); Albumin, Serum 3.3 g/dL (3.2-5.0); Alkaline Phosphatase 94 U/L (45-117); Anion Gap 10 (5-15); BUN 15 mg/dL (7-18); BUN/Creat Ratio 25.5 RATIO (10-20); Calcium,Total 8.4 mg/dL (8.5-10.1); Chloride 110 mmol/L (98-107); Creatinine, Serum 0.59 mg/dL (0.55-1.02); EST Glomerular Filtration Rate 106 mL/min (>60); Est Glom Filt Rate - Afr Amer 129 mL/min (>60); Estimated Creatinine Clearance 41.45 ml/min; Glucose 105 mg/dL (74-106); Potassium 3.3 mmol/L (3.5-5.1); Protein, Total 7.3 g/dL (6.4-8.2); Sodium Level 142 mmol/L (136-145)
[2022-03-30 07:06] LABS: Magnesium 2.2 mg/dL (1.6-2.6); Thyroid Stim Hormone (TSH) 0.67 uIU/mL (0.358-3.74)
--- NOTE | 2022-03-30 09:41 | EKG12_ITS ---
Test Reason : Blood Pressure : / mmHG Vent. Rate : 056 BPM Atrial Rate : 056 BPM P-R Int : 160 ms QRS Dur : 068 ms QT Int : 408 ms P-R-T Axes : 000 030 079 degrees QTc Int : 393 ms Sinus bradycardia Nonspecific T wave abnormality Abnormal ECG Confirmed by IMTIAZ HILTON, LEXIE ([id number]), society editor PIYUSH MARMOLEJO ([id number]) on 04/06/2022 8:06:35 AM Referred By: Gray Confirmed By:LEXIE KITCHEN MD
--- NOTE | 2022-03-30 11:45 | PN.ORTHO_ITS ---
Subjective Subjective Nausea a bit better today. No other concerns or complaints. Objective Data Objective Data Vital Signs: Vital Signs Temp Pulse Resp BP Pulse Ox O2 Del Method O2 Flow Rate 97.9 F 64 16 120/74 97 Room Air 2 03/30/22 09:00 03/30/22 09:45 03/30/22 09:45 03/30/22 09:45 03/30/22 09:45 03/30/22 09:45 03/28/22 19:40 Oxygen Flow Rate (L/min) 2 Oxygen Delivery Method Room Air Weight: 136 lb 7.458 oz Body Mass Index (BMI) 24.1 Intake & Output: Intake and Output for Last 24 Hours 03/28/22 03/29/22 03/30/22 23:59 23:59 23:59 Intake Total 4356.75 / 4756.75 1250 / 1250 21.58 / 21.58 Output Total 2175 / 2475 1700 / 1700 Balance 2181.75 / 2281.75 -450 / -450 21.58 / 21.58 Lab / Micro Data Attestation: I reviewed the patient's lab results. Result Diagrams: 03/30/22 04:43 03/30/22 04:43 Labs: Laboratory Results - last 24 hr 03/30/22 04:43: WBC 10.3, RBC 4.50, Hgb 13.0, Hct 38.4, MCV 85.3, MCH 28.9, MCHC 33.9, RDW Std Deviation 42.5, RDW Coeff of Quinten 13.8, Plt Count 252, MPV 10.6, Immature Gran % (Auto) 0.700, Neut % (Auto) 72.8 H, Lymph % (Auto) 14.2 L, [place] % (Auto) 10.2 H, Eos % (Auto) 1.7, Baso % (Auto) 0.4, Absolute Neuts (auto) 7.5, Absolute Lymphs (auto) 1.46, Nucleated RBC % 0 03/30/22 04:43: Sodium 142, Potassium 3.3 L, Chloride 110 H, Carbon Dioxide 22.0, Anion Gap 10, BUN 15, Creatinine 0.59, Estim Creat Clear Calc 41.45, Est GFR (MDRD) Af Amer 129, Est GFR (MDRD) Non-Af 106, BUN/Creatinine Ratio 25.5 H, Glucose 105, Calcium 8.4 L, Total Bilirubin 0.80, AST 28, ALT 21, Alkaline Phosphatase 94, Total Protein 7.3, Albumin 3.3, Globulin 4.0, Albumin/Globulin Ratio 0.8 L 03/30/22 04:43: Magnesium 2.2, TSH 0.67 03/30/22 04:45: Phosphorus 3.0 Physical Exam Const alert, oriented x3 and no apparent distress Constitutional Narrative: dressings dry and intact, sensation and motor function R LE at baseline. Assessment & Plan Assessment/Plan (1) Fracture of right hip: PLAN: Plan Doing well overall. Continue PWB right LE. Appreciate hospitalist involvement and management, their notes reviewed.
[2022-03-30] MEDS: Acetaminophen 500 MG Tablet 1000 MG PO (14:07)
--- NOTE | 2022-03-30 14:23 | PCM.PN.HOSP ---
Subjective Subjective Patient was transferred to PCU for A. fib with RVR, heart rate 151/min overnight. Amlodipine discontinued. On Cardizem drip. Objective Data Objective Data Vital Signs: Vital Signs Temp Pulse Resp BP Pulse Ox O2 Del Method O2 Flow Rate 97.5 F L 65 18 110/59 L 98 Room Air 2 03/30/22 13:57 03/30/22 13:57 03/30/22 13:57 03/30/22 13:57 03/30/22 13:57 03/30/22 13:57 03/28/22 19:40 Oxygen Flow Rate (L/min) 2 Oxygen Delivery Method Room Air Weight: 136 lb 7.458 oz Body Mass Index (BMI) 24.1 Intake & Output: Intake and Output for Last 24 Hours 03/28/22 03/29/22 03/30/22 23:59 23:59 23:59 Intake Total 4356.75 / 4756.75 1250 / 1250 396.58 / 396.58 Output Total 2175 / 2475 1700 / 1700 550 / 550 Balance 2181.75 / 2281.75 -450 / -450 -153.42 / -153.42 Lab / Micro Data Result Diagrams: 03/30/22 04:43 03/30/22 04:43 Labs: Laboratory Results - last 24 hr 03/30/22 04:43: WBC 10.3, RBC 4.50, Hgb 13.0, Hct 38.4, MCV 85.3, MCH 28.9, MCHC 33.9, RDW Std Deviation 42.5, RDW Coeff of Quinten 13.8, Plt Count 252, MPV 10.6, Immature Gran % (Auto) 0.700, Neut % (Auto) 72.8 H, Lymph % (Auto) 14.2 L, [place] % (Auto) 10.2 H, Eos % (Auto) 1.7, Baso % (Auto) 0.4, Absolute Neuts (auto) 7.5, Absolute Lymphs (auto) 1.46, Nucleated RBC % 0 03/30/22 04:43: Sodium 142, Potassium 3.3 L, Chloride 110 H, Carbon Dioxide 22.0, Anion Gap 10, BUN 15, Creatinine 0.59, Estim Creat Clear Calc 41.45, Est GFR (MDRD) Af Amer 129, Est GFR (MDRD) Non-Af 106, BUN/Creatinine Ratio 25.5 H, Glucose 105, Calcium 8.4 L, Total Bilirubin 0.80, AST 28, ALT 21, Alkaline Phosphatase 94, Total Protein 7.3, Albumin 3.3, Globulin 4.0, Albumin/Globulin Ratio 0.8 L 03/30/22 04:43: Magnesium 2.2, TSH 0.67 03/30/22 04:45: Phosphorus 3.0 Physical Exam Narrative Seen and examined. Earlier patient refused for oral potassium but agreed for IV potassium. She thought that banana is sufficient but I told her she needs IV potassium replacement in order to correct hypokalemia and prevent further RVR. Complain of pain over right hip area General: Alert, Oriented x3, Cooperative, mild nauseated HEENT: Atraumatic, PERRLA, EOMI, Normocephalic Oral: No Gingival or Mucosal Lesions/ Ulcerations Neck: Supple, No JVD, Negative Carotid Bruits Lungs: Air entry diminished in bilateral lung bases. No crepitation/rhonchi Cardiovascular: A. fib with RVR converted to sinus bradycardia, Normal S1, Normal S2, diastolic systolic murmur ordered right second ICS Abdomen: Bowel Sounds Present, Soft, Non Tender, Non-Distended : No renal angle tenderness. No suprapubic tenderness. Extremities: No edema, Capillary Refill Less than 3 Seconds Skin: No rashes, No breakdown Musculoskeletal: Right hip surgical dressing dry. No active bleeding/bruise or hematoma Neurological: Cranial nerves II-XII grossly intact, DTR 2+/4 Psych/Mental Status: Flat affect. Assessment & Plan Assessment/Plan (1) Fracture of right hip: PLAN: Plan 1. Acute valgus impacted right femoral neck fracture with minimal displacement probably pathological from osteoporosis: The patient fell down from standing height on the driveway after trip with history of stroke and previous weakness therefore it is pathological probably from osteoporosis. Admitted x-ray of the hip shows right femoral neck fracture Pain is fairly controlled. Pain medications optimized. Patient had right hip ORIF on 03/28/2022. Postop mild nausea probably due to pain medications. On symptomatic management. 2. Paroxysmal A. fib with RVR: Patient was started on Cardizem drip converted to sinus bradycardia. equipment monitor phototypesetting reviewed. Heart rate sinus rhythm in 60s. Patient had mild hypokalemia, IV KCl ordered. Earlier patient refused for oral potassium. Serum magnesium and phosphorus level normal. 2. Hypertension/hyperlipidemia/history of CVA, severe pain Continue amlodipine, atorvastatin 03/30 BP 110s/59, controlled. Hydralazine prn 3. DVT prophylaxis?per orthopedics - on Xarelto and SCD Charges/Coding Visit Charges Inpatient E&M: 95553 Subs Hosp L2
[2022-03-30 15:10] LABS: T4 Free Direct 1.84 ng/dL (0.76-1.46)
[2022-03-30] MEDS: Potassium Chloride 10mEq/100mL 10 MEQ/100 ML IV.SOLN. 100 MEQ IV BOLUS (15:26)
--- NOTE | 2022-03-30 15:38 | CHAPLAIN ---
Type of Pastoral Visit _x__ Initial Visit ___ Follow-up Visit ___ On-call Visit ___ General Patient Visit ___ Spiritual Assessment ___ Family Conference ___ Bereavement ___ Rapid Response ___ Code Blue ___ Other (describe below) Pastoral Care Referral From _x__ Patient ___ Family ___ Nurse ___ Physician ___ Drop Clipper ___ Chute Operator ___ Other (describe below) Sacrament/Intervention _x__ Active listening ___ Anointing ___ Mandaen ___ Bereavement ___ Communion ___ Caitlin exploration ___ ___ Life review _x__ Prayer ___ Reconciliation ___ Sacrament of Sick ___ Supportive presence ___ Wedding ___ Other (describe below) Pastoral Comments patient is resting but welcomes the visit by this detailer school photographs; pt speaks of who is supportive to her; pt requests prayer for my healing and return to independence; support given
[2022-03-30] MEDS: Potassium Chloride Oral Tablet 20 MEQ 40 MEQ PO (16:57)
[2022-03-30] MEDS: Rivaroxaban 10 MG Tablet PO (16:57)
[2022-03-30] MEDS: Atorvastatin Calcium 80 MG Tablet PO (21:05)
[2022-03-30] MEDS: Doxycycline 100 MG CAPSULE PO (21:06)
[2022-03-31] VITALS (12 sets, daily range): BP systolic 138–157; BP diastolic 61–76; PULSE 56–72; RESP 16–18; TEMP 36.4–36.9; O2SAT 95–97
--- NOTE | 2022-03-31 09:13 | CASEMGMT ---
Discharge Auto Body Man Michela gutiérrez/mario oceanographer assistant sent updates to Ginette at [facility]. Plan: [facility], Waiting pre-cert. Michela Eden Discharge Auto Body Man
[2022-03-31] MEDS: Doxycycline 100 MG CAPSULE PO ×2 (09:46→21:26)
[2022-03-31] MEDS: Loratadine 10 MG Tablet PO (09:46)
--- NOTE | 2022-03-31 12:05 | PCM.PN.HOSP ---
Subjective Subjective Patient heart rate is controlled, sinus rhythm 81 bpm. Patient is not very motivated to walk. Objective Data Objective Data Vital Signs: Vital Signs Temp Pulse Resp BP Pulse Ox O2 Del Method O2 Flow Rate 97.8 F 61 18 138/62 H 97 Room Air 2 03/31/22 09:40 03/31/22 09:40 03/31/22 09:40 03/31/22 09:40 03/31/22 11:01 03/31/22 09:40 03/28/22 19:40 Oxygen Flow Rate (L/min) 2 Oxygen Delivery Method Room Air Weight: 135 lb 12.876 oz Body Mass Index (BMI) 24.1 Intake & Output: Intake and Output for Last 24 Hours 03/29/22 03/30/22 03/31/22 23:59 23:59 23:59 Intake Total 1250 / 1250 1028.25 / 1028.25 Output Total 1700 / 1700 925 / 925 Balance -450 / -450 103.25 / 103.25 Lab / Micro Data Result Diagrams: 03/30/22 04:43 03/30/22 04:43 Labs: Laboratory Results - last 24 hr 03/30/22 04:45: Free T4 1.84 H Radiography Diagnostic Testing: Radiology Impression Echocardiogram 03/30/22 04:16 Interpretation Summary Left ventricular systolic function is normal. The estimated ejection fraction is 65 %. The left atrium is mildly enlarged. Mild focal mitral valve calcification of the posterior leaflet. Mild (1+) mitral valve insufficiency. Mild tricuspid valve insufficiency. Trivial pulmonic valve insufficiency. Right ventricular systolic pressure estimated to be 33 mmHg. No evidence for diastolic dysfunction. Commentt: Transthoracic echocardiogram from 04-22-2014: Reported a negative agitated saline contrast study for an interatrial shunt. Ordering Physician: Abhijeet Gallagher Referring Physician: MD Wolf Puentes Performed By: Aye Ochoa RDCS Physical Exam Narrative Seen and examined. Patient has been refusing for oral potassium and IV potassium but she took oral potassium at last yesterday. I educated about importance of hypokalemia might lead to A. fib. General: Alert, Oriented x3, Cooperative HEENT: Atraumatic, PERRLA, EOMI, Normocephalic Oral: No Gingival or Mucosal Lesions/ Ulcerations Neck: Supple, No JVD, Negative Carotid Bruits Lungs: Air entry diminished in bilateral lung bases. No crepitation/rhonchi Cardiovascular: Sinus rhythm, Normal S1, Normal S2, systolic murmur over right second ICS and LLSB Abdomen: Bowel Sounds Present, Soft, Non Tender, Non-Distended : No renal angle tenderness. No suprapubic tenderness. Extremities: No edema, Capillary Refill Less than 3 Seconds Skin: No rashes, No breakdown Musculoskeletal: Right hip surgical dressing dry. No active bleeding/bruise or hematoma Neurological: Cranial nerves II-XII grossly intact, DTR 2+/4 Psych/Mental Status: Flat affect. Assessment & Plan Assessment/Plan (1) Fracture of right hip: PLAN: Plan 1. Acute valgus impacted right femoral neck fracture with minimal displacement probably pathological from osteoporosis: The patient fell down from standing height on the driveway after trip with history of stroke and previous weakness therefore it is pathological probably from osteoporosis. Admitted x-ray of the hip shows right femoral neck fracture Pain is fairly controlled. Pain medications optimized. Patient had right hip ORIF on 03/28/2022. Postop mild nausea probably due to pain medications. On symptomatic management. 03/31: Pain is well controlled. Patient motivated to participate in PT. Plan to discharge to SNF. 2. Paroxysmal A. fib with RVR: Patient was started on Cardizem drip converted to sinus bradycardia. monitoring coordinator reviewed. Heart rate sinus rhythm in 60s. Patient had mild hypokalemia, IV KCl ordered. Earlier patient refused for oral potassium. Serum magnesium and phosphorus level normal. 03/31: Keep potassium magnesium and phosphorus optimal. On oral potassium replacement. In sinus rhythm. 2D echo reviewed, EF 55% mild MR mild TR. No evidence for diastolic dysfunction. 2. Hypertension/hyperlipidemia/history of CVA, severe pain Continue amlodipine, atorvastatin 03/30 BP 110s/59, controlled.Hydralazine prn 3. DVT prophylaxis?per orthopedics - on Xarelto and SCD Charges/Coding Visit Charges Inpatient E&M: 38263 Subs Hosp L2
[2022-03-31] MEDS: Potassium Chloride Oral Tablet 20 MEQ 40 MEQ PO (13:03)
--- NOTE | 2022-03-31 13:37 | PHA.DC.MR ---
Pharmacy Service has performed discharge medication reconciliation for this patient. The patient's discharge medication list was reviewed for discrepancies and discrepancies were resolved. Home Medications atorvastatin 80 mg tablet 80 mg PO QHS ##30 05/15/14 hydroxyzine HCl 25 mg tablet 25 mg PO QHS Check with primary doctor 03/27/22 acetaminophen 500 mg tablet 1,000 mg PO TID 7 days #42 tabs 03/31/22 lisinopril 20 mg tablet 10 mg PO BID ##60 03/31/22 oxycodone 5 mg tablet 5 mg PO Q4H PRN PRN Pain Score 7-10 2 days #10 tabs 03/31/22 potassium chloride 20 mEq tablet,extended release(part/cryst) (Klor-Con M) 40 meq PO DAILYCM 2 days #4 tabs 03/31/22 rivaroxaban 10 mg tablet (Xarelto) 10 mg PO DINNER #0 tabs 03/31/22 sennosides 8.6 mg-docusate sodium 50 mg tablet (Stool Softener-Stimulant Laxative) 2 tab PO BID #0 tabs 03/31/22
--- NOTE | 2022-03-31 15:14 | CASEMGMT ---
Pre-cert has not yet been received for patient to go to [facility]. Eli Villegas NEEDLE LOOM TENDER INDUSTRIAL RELATIONS MANAGER
[2022-03-31] MEDS: Rivaroxaban 10 MG Tablet PO (17:31)
[2022-03-31] MEDS: Atorvastatin Calcium 80 MG Tablet PO (21:26)
[2022-03-31] MEDS: hydrOXYzine PAM 25 MG Capsule PO (21:26)
[2022-04-01] VITALS (9 sets, daily range): BP systolic 137–147; BP diastolic 65–87; PULSE 58–72; RESP 16–18; TEMP 36.6–36.9; O2SAT 94–97
[2022-04-01] MEDS: Loratadine 10 MG Tablet PO (09:49)
[2022-04-01] MEDS: Potassium Chloride Oral Tablet 20 MEQ 40 MEQ PO (09:49)
[2022-04-01] MEDS: Doxycycline 100 MG CAPSULE PO (09:49)
[2022-04-01] MEDS: oxyCODONE 5 MG Tablet PO (09:50)
--- NOTE | 2022-04-01 13:02 | PCM.PN.HOSP ---
Subjective Subjective Seen and examined. Patient complains of mild pain over the right hip operative region. Mild bruise and swelling over right hip operative region. Patient not very motivated to walk. Objective Data Objective Data Vital Signs: Vital Signs Temp Pulse Resp BP Pulse Ox O2 Del Method O2 Flow Rate 98.2 F 62 18 144/65 H 97 Room Air 2 04/01/22 09:00 04/01/22 11:00 04/01/22 09:00 04/01/22 09:00 04/01/22 09:00 04/01/22 09:00 03/28/22 19:40 Oxygen Flow Rate (L/min) 2 Oxygen Delivery Method Room Air Weight: 138 lb 3.677 oz Body Mass Index (BMI) 24.1 Intake & Output: Intake and Output for Last 24 Hours 03/30/22 03/31/22 04/01/22 23:59 23:59 23:59 Intake Total 1028.25 / 1028.25 360 / 860 500 / 500 Output Total 925 / 925 750 / 750 Balance 103.25 / 103.25 360 / 110 -250 / -250 Lab / Micro Data Result Diagrams: 03/30/22 04:43 03/30/22 04:43 Physical Exam Narrative Seen and examined. Patient was motivated to walk and participate in physical therapy. General: Alert, Oriented x3, Cooperative HEENT: Atraumatic, PERRLA, EOMI, Normocephalic Oral: No Gingival or Mucosal Lesions/ Ulcerations Neck: Supple, No JVD, Negative Carotid Bruits Lungs: Air entry diminished in bilateral lung bases. No crepitation/rhonchi Cardiovascular: Sinus rhythm, Normal S1, Normal S2, systolic murmur over right second ICS and LLSB Abdomen: Bowel Sounds Present, Soft, Non Tender, Non-Distended : No renal angle tenderness. No suprapubic tenderness. Extremities: No edema, Capillary Refill Less than 3 Seconds Skin: Mild superficial ecchymosis over right hip operative region. Musculoskeletal: Right hip surgical dressing dry. Mild bruise, superficial ecchymosis and swelling noted over right hip region. Mild tenderness on palpation. Neurological: Cranial nerves II-XII grossly intact, DTR 2+/4 Psych/Mental Status: Flat affect. Assessment & Plan Assessment/Plan (1) Fracture of right hip: PLAN: Plan 1. Acute valgus impacted right femoral neck fracture with minimal displacement probably pathological from osteoporosis: The patient fell down from standing height on the driveway after trip with history of stroke and previous weakness therefore it is pathological probably from osteoporosis. Admitted x-ray of the hip shows right femoral neck fracture Pain is fairly controlled. Pain medications optimized. Patient had right hip ORIF on 03/28/2022. Postop mild nausea probably due to pain medications. On symptomatic management. 04/01: Patient motivated for PT and OT. Labs ordered. 2. Paroxysmal A. fib with RVR: Patient was started on Cardizem drip converted to sinus bradycardia. lunchroom monitor reviewed. Heart rate sinus rhythm in 60s. Patient had mild hypokalemia, IV KCl ordered. Earlier patient refused for oral potassium. Serum magnesium and phosphorus level normal. 04/01: Continue potassium supplement. 2. Hypertension/hyperlipidemia/history of CVA, severe pain Continue amlodipine, atorvastatin 03/30 BP 110s/59, controlled. Hydralazine prn 3. DVT prophylaxis?per orthopedics - on Xarelto and SCD Charges/Coding Visit Charges Inpatient E&M: 87517 Subs Hosp L2
[2022-04-01] MEDS: Acetaminophen 500 MG Tablet 1000 MG PO ×2 (14:11→22:03)
[2022-04-01 14:12] LABS: Absolute Lymphocyte Count 2.21 X10^3/uL (0.83-4.51); Absolute Neutrophil Count 4.6 X10^3/uL (2.0-7.7); Basophil# 0.03 X10^3/uL; Basophil% 0.4 % (0-1); Eosinophil# 0.35 X10^3/uL; Eosinophils% 4.2 % (0-5); Hematocrit 37.2 % (37-47); Hemoglobin 12.5 g/dL (12.0-15.0); Lymphocyte # 2.21 X10^3/ul (0.83-4.51); Lymphocyte % 26.5 % (19-41); Mean Corp Hgb Conc 33.6 g/dL (32-36); Mean Corpuscular Hgb 28.7 pg (27.0-32.0); Mean Corpuscular Volume 85.3 fL (81-99); Mean Platelet Vol. 10.1 fl (6.2-12.0); Monocyte# 1.08 X10^3/uL; Monocyte% 12.9 % (0-10); NRBC Flagged by Analyzer 0 % (0-5); Neutrophil # 4.62 X10^3/uL (2.7-7.7); Neutrophil % 55.4 % (47-70); Platelet Count 293 K/mm3 (150-450); RBC Distribution Width CV 13.8 % (11.6-14.6); RBC Distribution Width SD 43.2 fl (35.1-43.9); Red Blood Count 4.36 M/mm3 (4.2-5.4); White Blood Count 8.3 K/mm3 (4.4-11.0)
[2022-04-01 14:35] LABS: Anion Gap 6 (5-15); BUN 22 mg/dL (7-18); BUN/Creat Ratio 29.7 RATIO (10-20); Calcium,Total 8.9 mg/dL (8.5-10.1); Chloride 110 mmol/L (98-107); Creatinine, Serum 0.74 mg/dL (0.55-1.02); EST Glomerular Filtration Rate 82 mL/min (>60); Est Glom Filt Rate - Afr Amer 99 mL/min (>60); Estimated Creatinine Clearance 41.45 ml/min; Glucose 129 mg/dL (74-106); Potassium 4.3 mmol/L (3.5-5.1); Sodium Level 141 mmol/L (136-145)
[2022-04-01] MEDS: Rivaroxaban 10 MG Tablet PO (17:19)
--- NOTE | 2022-04-01 21:15 | PCM.PN.ORT ---
Subjective Subjective She is doing well this evening. She complains about the dressings being a little bit itchy. Objective Data Objective Data Vital Signs: Vital Signs Temp Pulse Resp BP Pulse Ox O2 Del Method O2 Flow Rate 98.5 F 59 L 18 146/82 H 96 Room Air 2 04/01/22 15:00 04/01/22 19:00 04/01/22 15:00 04/01/22 15:00 04/01/22 15:00 04/01/22 15:00 03/28/22 19:40 Oxygen Flow Rate (L/min) 2 Oxygen Delivery Method Room Air Weight: 138 lb 3.677 oz Body Mass Index (BMI) 24.1 Intake & Output: Intake and Output for Last 24 Hours 03/30/22 03/31/22 04/01/22 23:59 23:59 23:59 Intake Total 1028.25 / 1028.25 360 / 860 980 / 980 Output Total 925 / 925 750 / 750 Balance 103.25 / 103.25 360 / 110 230 / 230 Lab / Micro Data Attestation: I reviewed the patient's lab results. Result Diagrams: 04/01/22 14:02 04/01/22 14:02 Labs: Laboratory Results - last 24 hr 04/01/22 14:02: WBC 8.3, RBC 4.36, Hgb 12.5, Hct 37.2, MCV 85.3, MCH 28.7, MCHC 33.6, RDW Std Deviation 43.2, RDW Coeff of Quinten 13.8, Plt Count 293, MPV 10.1, Immature Gran % (Auto) 0.600, Neut % (Auto) 55.4, Lymph % (Auto) 26.5, [place] % (Auto) 12.9 H, Eos % (Auto) 4.2, Baso % (Auto) 0.4, Absolute Neuts (auto) 4.6, Absolute Lymphs (auto) 2.21, Nucleated RBC % 0 04/01/22 14:02: Sodium 141, Potassium 4.3, Chloride 110 H, Carbon Dioxide 25.0, Anion Gap 6, BUN 22 H, Creatinine 0.74, Estim Creat Clear Calc 41.45, Est GFR (MDRD) Af Amer 99, Est GFR (MDRD) Non-Af 82, BUN/Creatinine Ratio 29.7 H, Glucose 129 H, Calcium 8.9 Physical Exam Const alert, oriented x3 and no apparent distress Constitutional Narrative: Dressings are dry and intact. There is a moderate size ecchymosis about the lateral aspect of the hip no drainage or oozing no obvious hematoma or fluid collection thigh compartment is soft baseline sensation of the foot the foot is warm and well-perfused. Assessment & Plan Assessment/Plan (1) Fracture of right hip: PLAN: Plan Continue partial weightbearing right lower extremity.
[2022-04-01] MEDS: 0.9% Saline Lock 10 ML Syringe IV (22:04)
[2022-04-02] VITALS (8 sets, daily range): BP systolic 149–178; BP diastolic 77–100; PULSE 49–84; RESP 16–18; TEMP 36.1–36.9; O2SAT 95–97
[2022-04-02 05:36] LABS: Absolute Lymphocyte Count 2.41 X10^3/uL (0.83-4.51); Absolute Neutrophil Count 4.3 X10^3/uL (2.0-7.7); Basophil# 0.04 X10^3/uL; Basophil% 0.5 % (0-1); Eosinophil# 0.39 X10^3/uL; Eosinophils% 4.8 % (0-5); Hematocrit 37.4 % (37-47); Hemoglobin 12.7 g/dL (12.0-15.0); Lymphocyte # 2.41 X10^3/ul (0.83-4.51); Lymphocyte % 29.4 % (19-41); Mean Corpuscular Hgb 29.1 pg (27.0-32.0); Mean Corpuscular Volume 85.8 fL (81-99); Mean Platelet Vol. 10.6 fl (6.2-12.0); Monocyte# 0.98 X10^3/uL; Monocyte% 11.9 % (0-10); NRBC Flagged by Analyzer 0 % (0-5); Neutrophil # 4.33 X10^3/uL (2.7-7.7); Neutrophil % 52.7 % (47-70); Platelet Count 298 K/mm3 (150-450); RBC Distribution Width CV 13.6 % (11.6-14.6); RBC Distribution Width SD 42.6 fl (35.1-43.9); Red Blood Count 4.36 M/mm3 (4.2-5.4); White Blood Count 8.2 K/mm3 (4.4-11.0)
[2022-04-02 06:01] LABS: Anion Gap 6 (5-15); BUN 22 mg/dL (7-18); BUN/Creat Ratio 36.4 RATIO (10-20); Calcium,Total 8.7 mg/dL (8.5-10.1); Chloride 109 mmol/L (98-107); EST Glomerular Filtration Rate 103 mL/min (>60); Est Glom Filt Rate - Afr Amer 125 mL/min (>60); Estimated Creatinine Clearance 41.45 ml/min; Glucose 104 mg/dL (74-106); Potassium 3.9 mmol/L (3.5-5.1); Sodium Level 140 mmol/L (136-145)
[2022-04-02] MEDS: Potassium Chloride Oral Tablet 20 MEQ 40 MEQ PO (09:07)
[2022-04-02] MEDS: Loratadine 10 MG Tablet PO (09:07)
[2022-04-02] MEDS: Doxycycline 100 MG CAPSULE PO (09:08)
--- NOTE | 2022-04-02 09:36 | CASEMGMT ---
Discharge Wood Molder Michela gutiérrez/mario press assistant reached out to [facility] via email to see if pre-cert has been obtained yet. Will follow up. Plan: [facility], Waiting pre-cert Michela Eden Discharge Wood Molder
--- NOTE | 2022-04-02 10:00 | PCM.TXEXTCAR ---
Diet Diet Order/Speech Therapy: 03/28/22 13:05 Diet: Cardiac - Heart Healthy Type of Dietary Supplement:: Ensure Compact Is pt able to select menu?: Yes Diet Comments: vanilla ensure compact BID w/ breakfast and dinner Routine Orders/Code Status Suppository Type: Dulcolax 10mg Suppository Frequency: Daily PRN Routine Lab Work: BMP (BMP, magnesium and phosphorus every week.) Code Status: DNRCC-A Wound(s) rt hip: Wound Type: Surgical Incision Therapies Weight Bearing: Partial weight bearing Extremity Affected:: Bilateral Lower Physical Therapy: Eval and Treat Occupational Therapy: Eval and Treat Speech Therapy: Eval and Treat Problem/Diagnosis (1) Fracture of right hip: Status: Acute Code(s): S72.001A - Fracture of unspecified part of neck of right femur, initial encounter for closed fracture Plan 1. Acute valgus impacted right femoral neck fracture with minimal displacement probably pathological from osteoporosis: The patient fell down from standing height on the driveway after trip with history of stroke and previous weakness therefore it is pathological probably from osteoporosis. Admitted x-ray of the hip shows right femoral neck fracture Pain is fairly controlled. Pain medications optimized. Patient had right hip ORIF on 03/28/2022. Postop mild nausea probably due to pain medications. On symptomatic management. 2. Paroxysmal A. fib with RVR: Patient was started on Cardizem drip converted to sinus bradycardia. safety and skill based pay manager reviewed. Heart rate sinus rhythm in 60s. Patient had mild hypokalemia, IV KCl ordered. Earlier patient refused for oral potassium. Serum magnesium and phosphorus level normal. 2. Hypertension/hyperlipidemia/history of CVA, severe pain Continue amlodipine, atorvastatin 03/30 BP 110s/59, controlled. Hydralazine prn 3. DVT prophylaxis?per orthopedics - on Xarelto and SCD Allergies/Procedures Done in Hospital Allergies No Known Allergies Allergy (Verified 04/20/14 17:02) Type of Care/Length of Stay Estimated LOS: Convalescent Care Less Than 30 days Type of Care Needed: Skilled Rehab Potential: Good Prognosis: Good Additional Orders/Day of Discharge Day of Discharge: 04/02/22 Dietary and Speech Recommendations Dietitian Recommendations/Changes: Continue cardiac diet. Will add vanilla ensure compact BID w/ breakfast and dinner. Discharge Plan Admission Admit Date/Time: 03/27/22 15:11 Primary Reason for Your Visit: Fracture of right hip. Paroxysmal A. fib RVR Attending Provider: Greg Castellano Primary Care Provider: Wolf Puentes Consulting Providers: Tanisha Christie ; Bg Reagan Discharge Orders/Prescriptions Prescriptions: New acetaminophen 500 mg Tablet 1,000 mg PO TID 7 Days Qty: 42 0RF Xarelto 10 mg Tablet 10 mg PO DINNER Qty: 0 0RF sennosides-docusate sodium [Stool Softener-Stimulant Laxat] 8.6-50 mg Tablet 2 tab PO BID Qty: 0 0RF potassium chloride [Klor-Con M20] 20 mEq Tablet,Er Particles/Crystals 40 meq PO DAILYCM 2 Days Qty: 4 0RF oxycodone 5 mg Tablet 5 mg PO Q4H PRN PRN (Reason: Pain Score 7-10) 2 Days Qty: 10 0RF Continued atorvastatin 80 MG tablet 80 mg PO QHS Qty: 30 0RF Label Comments: cholesterol lowering hydroxyzine HCl 25 mg tablet 25 mg PO QHS Changed lisinopril 20 MG tablet 10 mg PO BID Qty: 60 0RF Label Comments: reduce blood pressure Discontinued amlodipine 5 MG tablet 5 mg PO DAILY Qty: 30 0RF Label Comments: blood pressure fexofenadine [Rachelle Allergy] 180 mg Tablet 180 mg PO DAILY doxycycline monohydrate 100 mg capsule 100 mg PO BID Referrals / Follow Up: Wolf Puentes DO [Primary Care Provider] - Bg Reagan MD [Med Staff - Active Staff] - Within 1 Week (for right hip s/p ORIF) Disposition Disposition (needs filled in before D/C Order can be placed): [facility]
--- NOTE | 2022-04-02 14:23 | CASEMGMT ---
Discharge Package Dyeing Machine Operator Ginette reached out. Pre-cert has been obtained. RAMIRO Benitez notified. Plan: [facility] Michela Eden Discharge Package Dyeing Machine Operator
--- NOTE | 2022-04-02 14:28 | DS.PCM_ITS ---
Providers Date of Admission: 03/27/22 Date of Discharge: 04/02/22 Primary Care Physician: Dr. Wolf Puentes, Consultations 03/27/22 17:27 Consult: Orthopedics Routine Consulting Provider: Bg Reagan Reason for Consult: right hip fracture EMERGENT Consult: No MD Notified: Yes Date Notified: 03/27/22 Time Notified: 17:31 Method of Notification: page Reason For Visit: RIGHT HIP FRACTURE Diagnosis Discharge Diagnosis (1) Fracture of right hip: Status: Acute Code(s): S72.001A - Fracture of unspecified part of neck of right femur, initial encounter for closed fracture Medications at Discharge Home Medications atorvastatin 80 mg tablet 80 mg PO QHS ##30 05/15/14 hydroxyzine HCl 25 mg tablet 25 mg PO QHS anxiety 03/27/22 acetaminophen 500 mg tablet 1,000 mg PO TID 7 days #42 tabs 03/31/22 lisinopril 20 mg tablet 10 mg PO BID ##60 03/31/22 oxycodone 5 mg tablet 5 mg PO Q4H PRN PRN Pain Score 7-10 2 days #10 tabs 03/31/22 potassium chloride 20 mEq tablet,extended release(part/cryst) (Klor-Con M) 40 meq PO DAILYCM 2 days #4 tabs 03/31/22 rivaroxaban 10 mg tablet (Xarelto) 10 mg PO DINNER #0 tabs 03/31/22 sennosides 8.6 mg-docusate sodium 50 mg tablet (Stool Softener-Stimulant Laxative) 2 tab PO BID #0 tabs 03/31/22 Hospital Course Summary of Care Provided Hospital Course: 1. Acute valgus impacted right femoral neck fracture with minimal displacement probably pathological from osteoporosis: The patient fell down from standing height on the driveway after trip with history of stroke and previous weakness therefore it is pathological probably from osteoporosis. Admitted x-ray of the hip shows right femoral neck fracture Pain is fairly controlled. Pain medications optimized. Patient had right hip ORIF on 03/28/2022. Postop mild nausea probably due to pain medications. On symptomatic management. 2. Paroxysmal A. fib with RVR: Patient was started on Cardizem drip converted to sinus bradycardia. equipment monitor phototypesetting reviewed. Heart rate sinus rhythm in 60s. Patient had mild hypokalemia, IV KCl ordered. Earlier patient refused for oral potassium. Serum magnesium and phosphorus level normal. 2. Hypertension/hyperlipidemia/history of CVA, severe pain Continue amlodipine, atorvastatin 03/30 BP 110s/59, controlled. Hydralazine prn 3. DVT prophylaxis?per orthopedics - on Xarelto and SCD 04/02: Labs reviewed. Electrolytes in normal range. H&H 12.7/55.8. Normal WBC count and platelet count. Patient blood pressure is elevated. Hydralazine 5 mg IV given. Patient is discharged to SNF. Discharge medication reconciliation done. Discharge follow-up instructions completed. Discharge process discussed with the patient and all questions were answered to patient's satisfaction. Total time spent, exact 35 minutes on discharge meds reconciliation, examination, coordination of care with nurses and ancillary staff, review of imaging and blood test and discussion with the patient on follow-up instructi ons. Weight / BMI Weight Weight: 136 lb 14.513 oz Body Mass Index (BMI) 24.1 ABG / Lab / Microbiology Data Result Diagrams: 04/02/22 04:57 04/02/22 04:57 Laboratory: Laboratory Results - last 24 hr 04/01/22 14:02: Sodium 141, Potassium 4.3, Chloride 110 H, Carbon Dioxide 25.0, Anion Gap 6, BUN 22 H, Creatinine 0.74, Estim Creat Clear Calc 41.45, Est GFR (MDRD) Af Amer 99, Est GFR (MDRD) Non-Af 82, BUN/Creatinine Ratio 29.7 H, Glucose 129 H, Calcium 8.9 04/02/22 04:57: WBC 8.2, RBC 4.36, Hgb 12.7, Hct 37.4, MCV 85.8, MCH 29.1, MCHC 34.0, RDW Std Deviation 42.6, RDW Coeff of Quinten 13.6, Plt Count 298, MPV 10.6, Immature Gran % (Auto) 0.700, Neut % (Auto) 52.7, Lymph % (Auto) 29.4, [place] % (Auto) 11.9 H, Eos % (Auto) 4.8, Baso % (Auto) 0.5, Absolute Neuts (auto) 4.3, Absolute Lymphs (auto) 2.41, Nucleated RBC % 0 04/02/22 04:57: Sodium 140, Potassium 3.9, Chloride 109 H, Carbon Dioxide 25.0, Anion Gap 6, BUN 22 H, Creatinine 0.60, Estim Creat Clear Calc 41.45, Est GFR (MDRD) Af Amer 125, Est GFR (MDRD) Non-Af 103, BUN/Creatinine Ratio 36.4 H, Glucose 104, Calcium 8.7 Meaningful Use Info Meaningful Use Diagnoses (Choose all that apply): None applicable Discharge Plan Admission Admit Date/Time: 03/27/22 15:11 Primary Reason for Your Visit: Fracture of right hip. Paroxysmal A. fib RVR Attending Provider: Greg Castellano Primary Care Provider: Wolf Puentes Consulting Providers: Tanisha Christie ; Bg Reagan Discharge Orders/Prescriptions Prescriptions: New acetaminophen 500 mg Tablet 1,000 mg PO TID 7 Days Qty: 42 0RF Xarelto 10 mg Tablet 10 mg PO DINNER Qty: 0 0RF sennosides-docusate sodium [Stool Softener-Stimulant Laxat] 8.6-50 mg Tablet 2 tab PO BID Qty: 0 0RF potassium chloride [Klor-Con M20] 20 mEq Tablet,Er Particles/Crystals 40 meq PO DAILYCM 2 Days Qty: 4 0RF oxycodone 5 mg Tablet 5 mg PO Q4H PRN PRN (Reason: Pain Score 7-10) 2 Days Qty: 10 0RF Continued atorvastatin 80 MG tablet 80 mg PO QHS Qty: 30 0RF Label Comments: cholesterol lowering hydroxyzine HCl 25 mg tablet 25 mg PO QHS Changed lisinopril 20 MG tablet 10 mg PO BID Qty: 60 0RF Label Comments: reduce blood pressure Discontinued amlodipine 5 MG tablet 5 mg PO DAILY Qty: 30 0RF Label Comments: blood pressure fexofenadine [Rachelle Allergy] 180 mg Tablet 180 mg PO DAILY doxycycline monohydrate 100 mg capsule 100 mg PO BID Referrals / Follow Up: Wolf Puentes DO [Primary Care Provider] - Bg Reagan MD [Med Staff - Active Staff] - Within 1 Week (for right hip s/p ORIF) Disposition Disposition (needs filled in before D/C Order can be placed): [facility] Charges/Coding Visit Charges Inpatient E&M: 52859 Disch Hosp
[2022-04-02] MEDS: hydrALAZINE 20 MG/ML Vial 5 MG IV (15:01)
--- NOTE | 2022-04-02 15:30 | CASEMGMT ---
RAMIRO sent orders to [facility] via e-mail. RAMIRO also completed 7000 on [facility]. RAMIRO arranged for patient to get picked up at 1630 by [facility] via wheelchair van. RAMIRO notified Ginette at [facility] and also sent COVID test via e-mail. Patient's RN, patient, and her step daughter Darshana were notified also. Plan: d/c to [facility] under skilled level of care on a 7000. [facility] transported via wc van by [facility]. Eli FIORE
[2022-04-02] MEDS: Rivaroxaban 10 MG Tablet PO (17:56)
== END 2022-04-02 18:13 | disposition skilled nursing facility (03) | DRG 481 ==
LOC: ED 15:17 → MS3 16:13 → PCU 03-30 12:59
PROVIDERS: Hospitalist; Orthopaedic Surgery Sports Medicine; Admitting Provider Internal Medicine; Emergency Provider Emergency Medicine; PCP Preventive Medicine Occupational Medicine; Visit Provider Internal Medicine
PROC: 0QS604Z Reposition Right Upper Femur with Internal Fixation Device, Open Approach (ICD-10-PCS; CPT 27245; principal; 2022-03-28 07:00)
DX: M80.051A Age-related osteoporosis with current pathological fracture, right femur, initial encounter for fracture (principal); I69.351 Hemiplegia and hemiparesis following cerebral infarction affecting right dominant side; I48.0 Paroxysmal atrial fibrillation; E87.6 Hypokalemia; E78.5 Hyperlipidemia, unspecified; I10 Essential (primary) hypertension; W01.0XXA Fall on same level from slipping, tripping and stumbling without subsequent striking against object, initial encounter; Y93.H2 Activity, gardening and landscaping; Y92.017 Garden or yard in single-family (private) house as the place of occurrence of the external cause; Z79.899 Other long term (current) drug therapy
CPT/HCPCS: 36415; 73502; 76000; 80048; 80053; 83735; 84100; 84439; 84443; 85025; 86850; 86900; 86901; 87426; 93005; 93306; 97110; 97116; 97162; 97166; 97530; 97535; 99285; C1713; J7030; J7120; A4216; J2405

== ENCOUNTER → 2022-04-21 | Outpatient (REF) | payer BC, SELFPAY ==
[2022-04-21 08:42] LABS: Hematocrit 38.6 % (37-47); Hemoglobin 12.8 g/dL (12.0-15.0); Mean Corp Hgb Conc 33.2 g/dL (32-36); Mean Corpuscular Hgb 28.9 pg (27.0-32.0); Mean Corpuscular Volume 87.1 fL (81-99); Mean Platelet Vol. 10.7 fl (6.2-12.0); Platelet Count 356 K/mm3 (150-450); RBC Distribution Width CV 13.6 % (11.6-14.6); RBC Distribution Width SD 43.8 fl (35.1-43.9); Red Blood Count 4.43 M/mm3 (4.2-5.4); White Blood Count 6.2 K/mm3 (4.4-11.0)
[2022-04-21 08:54] LABS: Anion Gap 9 (5-15); BUN 18 mg/dL (7-18); BUN/Creat Ratio 25.8 RATIO (10-20); Calcium,Total 9.1 mg/dL (8.5-10.1); Chloride 108 mmol/L (98-107); EST Glomerular Filtration Rate 88 mL/min (>60); Est Glom Filt Rate - Afr Amer 106 mL/min (>60); Glucose 92 mg/dL (74-106); Potassium 4.1 mmol/L (3.5-5.1); Sodium Level 141 mmol/L (136-145)
== END ==
LOC: OLS.WHLTCC 05:00
PROVIDERS: PCP Preventive Medicine Occupational Medicine; Visit Provider Family Medicine
DX: S72.001D Fracture of unspecified part of neck of right femur, subsequent encounter for closed fracture with routine healing (principal); I69.351 Hemiplegia and hemiparesis following cerebral infarction affecting right dominant side
CPT/HCPCS: 36415; 80048; 85027

== ENCOUNTER 2023-08-19 20:14 | Emergency (ER) | payer MEDICARE, SELFPAY ==
[2023-08-19 20:17] VITALS: BP 165/68; PULSE 82
[2023-08-19 20:18] VITALS: BP 165/68; PULSE 68; RESP 16; TEMP 36.7; O2SAT 97; BMI 25.0
[2023-08-19 20:20] VITALS: BP 165/68; PULSE 68; RESP 16; TEMP 36.7; O2SAT 97
--- OUTSIDE RECORDS SUMMARY | 2023-08-19 20:28 | XMS RPT_ITS | CCD ---
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 Name Role Phone No Family, Physician Unavailable Unavailable Bg Reagan Attending Unavailable UNATTACHED, Consulting Unavailable UNATTACHED, Primary Care Unavailable RADHA CABRALES DO Primary Care Physician [phone] RADHA CABRALES Attending Unavailable RADHA CABRALES Primary Care Unavailable Medications Current Medications Medication Drug Class(es) Dates Sig (Normalized) Sig (Original) amLODIPine 5 mg oral tablet (1 source) Dihydropyridine Calcium Channel Asad Start: 11-02-2022 amLODIPine 5 mg oral tablet Dose : 5 mg = 1 tab(s), Oral, qDay, # 90 tab(s), 3 Refill(s), Pharmacy: [facility]/pharmacy #[id number], 157, cm, 11/02/22 9:50:00 EDT, Height, kg, 11/02/22 9:45:00 EDT, Dosing Weight Start Date: 11/02/22 Status: Ordered aspirin 81 mg delayed release oral tablet (1 source) Platelet Aggregation Inhibitor, Nonsteroidal Anti-inflammatory Drug Start: 02-13-2019 Aspir-Low 81 mg oral delayed release tablet Dose : 81 mg = 1 tab(s), Oral, qDay, # 30 tab(s), 0 Refill(s) Start Date: 02/13/19 Status: Ordered atorvastatin 80 mg oral tablet (1 source) HMG-CoA Reductase Inhibitor Start: 11-02-2022 atorvastatin 80 mg oral tablet Dose : 80 mg = 1 tab(s), Oral, qDay, # 90 tab(s), 3 Refill(s), Pharmacy: [facility]/pharmacy #[id number], 157, cm, 11/02/22 9:50:00 EDT, Height, kg, 11/02/22 9:45:00 EDT, Dosing Weight Start Date: 11/02/22 Status: Ordered Garlic preparation (1 source) Non-Standardized Food Allergenic Extract Start: 02-13-2019 garlic oral capsule 0 Refill(s) Start Date: 02/13/19 Status: Ordered Problems Problem Classification Problem Date Documented Da te Episodic/Chronic Disorders of lipid metabolism (2 sources) Hyperlipidemia; Translations: [Hyperlipidemia, unspecified] Chronic Essential hypertension (2 sources) Essential hypertension; Translations: [Essential (primary) hypertension] Chronic Fracture of neck of femur (hip) (1 source) Fracture of unspecified part of neck of right femur, initial encounter for closed fracture; Translations: [Fracture of unspecified part of neck of right femur, initial encounter for closed fracture] Onset: 05-10-2022 Episodic Unclassified (1 source) Mammogram declined 04-15-2020 Results Test Name Value Interpretation Reference Range Facil ity Encounters Encounter Date Encounter Type Care Provider Facility Start: 11-02-2022 End: 11-03-2022 ambulatory RADHA CABRALES Facility:B Start: 11-02-2022 End: 11-02-2022 Patient encounter procedure RADHA CHINCHILLAY DO [facility] Start: 05-10-2022 End: 05-10-2022 ambulatory [facility] Facility:[facility] Start: 05-24-2017 Emergency department patient visit Physician Flaca Nichols [facility] Procedures Date Procedure Procedure Detail Performing Clinician Hysterectomy RADHA KERON DO Payers Date Payer Category Payer Medicare [id number] 2022 Self-pay 1950 Unknown [id number] Unknown [id number] Social History Date Type Detail Facility Start: 02-13-2019 Tobacco smoking status Never s moked tobacco (finding) [facility] Sex Assigned At Sex [facility] Progress note 03-10-2022 Note Date & Type Note Facility 03-10-2022 Note HNO ID: [id number] Author: Gideon Mireles APRN.CAN MARKER Service: ? Author Type: Nurse Practitioner Type: Progress Notes Filed: 03/10/2022 4:49 PM Note Text: Subjective HPI Nontoxic-appearing female presents urgent care chief complaint rash. Duration of symptoms leg left greater than 3 months. Associated symptoms pruritic erythematous rash. Patient was seen here on 02/26/2022 prescribed Kenalog cream and prednisone. States prednisone did help with rash. After prednisone taper was completed rash became itchy again. States she has been using some lotion but not regular. Denies any recent medication changes antibiotic use. No lifestyle or environmental changes. Denies any pain with rash. Denies any fever body aches chills cough chest pain shortness of breath or change in bowel or bladder habits. Past medical history prescription medication use allergies reviewed. .Patient presents with: Acute Visit: left hand itches and has rash on the back of it x 1 month History reviewed. No pertinent past medical history. History reviewed. No pertinent surgical history. ALLERGIES Patient has no known allergies. MEDICATIONS triamcinolone (KENALOG) 0.025 % cream Apply 1 application to affected area twice daily. amLODIPine (NORVASC) 5 mg tablet atorvastatin (LIPITOR) 80 mg tablet History reviewed. No pertinent family history. Social History Tobacco Use - Smoking status: Former Smoker - Smokeless tobacco: Never Used Substance Use Topics - Alcohol use: Never - Drug use: Never BP 130/64 Pulse 64 Temp 37.1 ?C (98.7 ?F) Resp 21 Wt 61.7 kg (136 lb) SpO2 96% Review of Systems Constitutional: Negative for chills, fever and malaise/fatigue. HENT: Negative for congestion, ear discharge, ear pain, sinus pain and sore throat. Eyes: Negative for blurred vision, pain, discharge and redness. Respiratory: Negative for cough, hemoptysis, sputum production, shortness of breath, wheezing and stridor. Cardiovascular: Negative for chest pain. Gastrointestinal: Negative for abdominal pain, diarrhea, nausea and vomiting. Musculoskeletal: Negative for myalgias. Skin: Positive for itching and rash. Neurological: Negative for dizziness and headaches. Objective Physical Exam Constitutional: General: She is not in acute distress. Appearance: She is not diaphoretic. HENT: Head: Normocephalic. Mouth/Throat: Mouth: Mucous membranes are moist. Pharynx: Oropharynx is clear. No oropharyngeal exudate or posterior oropharyngeal erythema. Eyes: Conjunctiva/sclera: Conjunctivae normal. Pupils: Pupils are equal, round, and reactive to light. Cardiovascular: Rate and Rhythm: Normal rate and regular rhythm. Heart sounds: Normal heart sounds. Pulmonary: Effort: Pulmonary effort is normal. No tachypnea, accessory muscle usage or respiratory distress. Breath sounds: Normal breath sounds. No stridor. No wheezing, rhonchi or rales. Abdominal: Palpations: Abdomen is soft. Tenderness: There is no abdominal tenderness. Musculoskeletal: Cervical back: Normal range of motion and neck supple. No rigidity or tenderness. Lymphadenopathy: Cervical: No cervical adenopathy. Skin: General: Skin is warm and dry. Comments: Scaly rash noted on dorsal aspect right hand. Papular scaling rash noted on back. No breaks in skin. No evidence of bacterial infection. Neurological: Mental Status: She is alert and oriented to person, place, and time. ASSESSMENT/PLAN: 1. Rash - ICD9: 782.1, ICD10: R21 Patient diagnosed with rash. Supportive therapies discussed. Encouraged patient to follow-up with dermatology. Patient will follow up with primary care provider as needed. Patient was instructed to immediately proceed to emergency room for any new, worsening, or symptoms lasting longer than anticipated. The patient's clinical presentation is otherwise unremarkable at this time. Based on exam and clinical finding, the patient is stable for discharge. Plan of care was discussed with patient. Patient verbalizes understanding and agrees to plan of care. This note was generated using Source Audio software. It may contain errors in wording, punctuation, or spelling. Gideon Mireles APRN.CAN MARKER [facility] Progress note 02-26-2022 Note Date & Type Note Facility 02-26-2022 Note HNO ID: [id number] Author: Rosario Higginbotham APRN.CAN MARKER Service: ? Author Type: Nurse Practitioner Type: Progress Notes Filed: 02/26/2022 5:15 PM Note Text: Subjective HPI Sameer Bedoya is a 71 year old female who presents with a rash on her left hand, face and chest. She states the rash on her hand has been present on and off for 3 months or longer, but really flared up in the past few day. Rash on face and chest has been present for 3 days. She states she gets a rash like this if she eats chicken or eggs. She has used cortisone cream on both rashes and took Claritin which did not help. The rashes itch and burn. She rates her pain 2/10. She has not had a fever. Review of Systems Constitutional: Negative for chills and fever. Respiratory: Negative. Cardiovascular: Negative. Musculoskeletal: Negative for myalgias. Skin: Positive for itching and rash. BP 128/64 Pulse 70 Temp 37.2 ?C (98.9 ?F) Resp 18 SpO2 97% No past medical history on file. No past surgical history on file. ALLERGIES Patient has no known allergies. MEDICATIONS predniSONE (DELTASONE) 10 mg tablet Take 4 tabs daily for 3 days, then 2 tabs daily for 3 days, then 1 tab daily for 3 days with food. triamcinolone (KENALOG) 0.025 % cream Apply 1 application to affected area twice daily. amLODIPine (NORVASC) 5 mg tablet atorvastatin (LIPITOR) 80 mg tablet No family history on file. Social History Tobacco Use - Smoking status: Former Smoker - Smokeless tobacco: Never Used Substance Use Topics - Alcohol use: Never - Drug use: Never Objective Physical Exam Vitals and nursing note reviewed. Constitutional: Appearance: Normal appearance. Cardiovascular: Rate and Rhythm: Normal rate and regular rhythm. Heart sounds: Normal heart sounds. Pulmonary: Effort: Pulmonary effort is normal. No respiratory distress. Breath sounds: Normal breath sounds. No wheezing or rales. Skin: General: Skin is warm. Findings: Erythema and rash present. Neurological: Mental Status: She is alert. ASSESSMENT/PLAN: 1. Eczema, unspecified type - ICD9: 692.9, ICD10: L30.9 - Oral Steriod tx -Prednisone taper - Topical steriod tx with Rx for steriod cream/ointment- see orders - discussed skin care of rash - follow up if symptoms persist or worsen. - PREDNISONE 10 MG TABLET - TRIAMCINOLONE ACETONIDE 0.025 % TOPICAL CREAM 2. Rash - ICD9: 782.1, ICD10: R21 - suspect allergic reaction. - Follow-up with your PCP in 3-5 days if symptoms have not improved or sooner if symptoms worsen - Discussed red flags and need for immediate medical evaluation if any occur. - Discussed supportive care treatment with fluids, rest and analgesia. - Discussed expected course of illness Rosario Higginbotham APRN.JOHNNY [facility] Evaluation + Plan note Laboratory Note Date & Type Note Facility Evaluation + Plan note Future Appointments Appointment Date:05/03/2023 11:00:00 AM Scheduled Provider:RADHA CABRALES DO Location:[facility] Appointment Type: OV Future Scheduled TestsAlbumin/Creatinine Ratio, Random Urine 11/02/22 [facility] Hospital course Narrative Note Date & Type Note Facility Hospital course Narrative No data available for this section [facility] Hospital Discharge instructions Note Date & Type Note Facility Hospital Discharge instructions No data available for this section [facility] Progress note Note Date & Type Note Facility Progress note No data available for this section [facility] Summary Purpose Family History No Family History Records FoundNo Family History Records FoundNo Family History Records FoundNo Family History Records Found Advance Directives No Advanced Directives Records FoundNo Advanced Directives Records FoundNo Advanced Directives Records FoundNo Advanced Directives Records Found Additional Source Comments INFORMATION SOURCE (unrecogn ized section and content) DATE CREATED AUTHOR AUTHOR'S ORGANIZ ATION 03/12/2022 [facility] DATE CREATED AUTHOR AUTHOR'S ORGANIZ ATION 05/14/2022 [facility] DATE CREATED AUTHOR AUTHOR'S ORGANIZ ATION 11/05/2022 [facility] ([place]) Patient Care team informatio n (unrecognized section and content) Care Team Personnel Name: RADHA CABRALES DO Position: P4 Physician - Primary Care Member Role: Primary Care Physician Address: Address: [address] [place] [id number]- Care Team Related Persons Name: AURELIANOCHARLEY Address: Home [address], [place] [id number] FOR RECORDS PERTAINING TO PATIENTS WHO ARE OR HAVE BEEN ENROLLED IN A CHEMICAL DEPENDENCY/SUBSTANCEABUSE PROGRAM, SOME INFORMATION MAY BE OMITTED. This clinical summary was aggregated from multiple sources. Caution should be exercised in using it in the provision of clinical care. This summary normalizes information from multiple sources, and as a consequence, information in this document may materially change the coding, format and clinical context of patient data. In addition, data may be omitted in some cases. CLINICAL DECISIONS SHOULD BE BASED ON THE PRIMARY CLINICAL RECORDS. [facility]. provides no warranty or guarantee of the accuracy or completeness of information in this document.
[2023-08-19 20:43] VITALS: BP 148/71; PULSE 70
--- NOTE | 2023-08-19 20:56 | EDS_ITS ---
HPI History of Present Illness Chief Complaint: Hypertension Informant: patient Narrative Narrative: Patient presents today due to concern for blood pressure. She states it has been up for a while. Although I cannot pin her down to an answer this sounds like at least several months. The triage note also mentions poor sleep. Evidently this has been going on even longer. It is more of a chronic issue and not the reason she came here. She denies chest pain shortness of breath. She denies feeling ill. I asked her what got her in here today with a blood pressure up versus some other day over the last few months and she just states that she was concerned about it being up. She is not sure when her blood pressure med dosage was last changed. Only meds are atorvastatin and lisinopril. She has not yet talked to her doctor about this. She is asympto matic with elevated pressures. Her high pressures at home have been about 165 systolic. [facility] Medical History Fracture of right hip Hx of completed stroke Hyperlipidemia Hypertension Home Medications atorvastatin 80 mg tablet 80 mg PO QHS #30 TABLETS 05/15/14 [Rx Last Taken Unknown] lisinopril 20 mg tablet 20 mg PO BID #60 TABLETS 04/02/22 [Rx Last Taken Unknown] Allergy/AdvReac Type Severity Reaction Status Date / Time No Known Allergies Allergy Verified 08/19/23 20:17 Surgical History H/O: hysterectomy Social History household members: none Smoking Status: Never smoker alcohol intake: never substance use type: does not use ROS ROS ED Constitutional Constitutional ED: Denies chills or fever(s) Eyes Eyes: Denies blurry vision, change in vision or diplopia ENT ENT ED: Denies sore throat Cardiovascular Cardiovascular: Denies chest pain, orthopnea, palpitations or racing heartbeat Respiratory/Chest Respiratory/Chest: Denies cough, dyspnea, dyspnea on exertion, orthopnea or sputum Gastrointestinal Gastrointestinal: Denies abdominal pain, nausea or vomiting Genitourinary Genitourinary ED: Denies dysuria Musculoskeletal Musculoskeletal: Denies myalgias Integumentary Denies rash Neurologic Neurologic: Denies headache(s), paresthesias or weakness Hematologic/Lymphatic Hematologic/Lymphatic: Denies easy bleeding or easy bruising Allergic/Immunologic Allergic/Immunologic ED: Denies urticaria EXAM Physical Exam Narrative Exam Narrative: CONSTITUTIONAL: Patient is nontoxic in appearance. The patient looks comfortable. Work of breathing looks normal. HEENT: No notable trauma. Mucous membranes moist. No sinus tenderness. No indication of pain with swallowing. EYES: No conjunctival injection. No proptosis. NECK:No JVD. No stridor. CARDIOVASCULAR: Regular rate. Regular rhythm. No notable murmur. No JVD. On the monitor she is in normal sinus rhythm with occasional PACs and compensatory asif ses. RESPIRATORY: No respiratory distress. Breathing is unlabored. No wheezes. No rhonchi. No rales. No pain with a deep breath. No chest wall tenderness. GASTROINTESTINAL: Not distended. Bowel sounds are normal. No tenderness. No guarding. No rebound. No palpable mass. No bruit is heard. GENITOURINARY: No tenderness over the bladder. No CVA tenderness. MUSCULOSKELETAL: Atraumatic. No peripheral edema. No cord. No tenderness along the deep venous system. No asymmetry. No distended veins. NEUROLOGICAL: Patient is alert and appropriate. No focal deficit noted. SKIN: No noted rashes. No diaphoresis. PSYCHIATRIC: Patient is calm. Mood is appropriate. Const Vital Signs: 08/19/23 20:18 08/19/23 20:20 08/19/23 20:17 Temperature 98.1 F 98.1 F Temperature Source Oral Temporal Pulse Rate 68 68 82 Respiratory Rate 16 16 Blood Pressure 165/68 H 165/68 H 165/68 H Blood Pressure Mean 100 100 100 Pulse Ox 97 97 Oxygen Delivery Method Room Air Room Air 08/19/23 20:43 08/19/23 21:00 Temperature Temperature Source Pulse Rate 70 68 Respiratory Rate Blood Pressure 148/71 H 125/80 H Blood Pressure Mean 96 95 Pulse Ox Oxygen Delivery Method MDM MDM MDM Narrative Medical decision making narrative: While I am in the room initially, she has a blood pressure of 147/65. Patient BC is normal. Patient's electrolytes are overall normal. Minimal elevation of glucose at 118. Blood pressure is down to 125/80. I went back to talk to the patient. She now asked me what she is going to do with her wobbly walking. I explained that when I had asked before she denied any numbness, tingling, weakness, difficulty with balance chest pain or breathing issues. This was denied. She now states that she has been wobbly for months. It is not worse today. We will do a CT scan of her head now. We will attempt walking her. Patient is actually got up and walked multiple times here. She unhooked herself from the monitor got out of bed walk to the bathroom and got back into bed by herself. There is no indication that she is unstable wobbly or wide-based gait at all. But with her symptoms and age we will do a CT scan to make sure we do not see any marked abnormalities. All her symptoms sound to be several months in duration or longer. So far no acute issues have been found. My independent interpretation of her CT shows no acute process and final reading is negative. I think patient is safe for discharge and appropriate for follow- up. Lab Data Attestation: I reviewed the patient's lab results. Labs: Laboratory Results - last 24 hr 08/19/23 20:48 WBC 7.2 RBC 4.80 Hgb 13.7 Hct 40.6 MCV 84.6 MCH 28.5 MCHC 33.7 RDW Std Deviation 41.4 RDW Coeff of Quinten 13.4 Plt Count 308 MPV 10.6 Immature Gran % (Auto) 0.300 Neut % (Auto) 59.7 Lymph % (Auto) 26.6 Williams % (Auto) 9.6 Eos % (Auto) 3.1 Baso % (Auto) 0.7 Absolute Neuts (auto) 4.3 Absolute Lymphs (auto) 1.91 Nucleated RBC % 0 Sodium 139 Potassium 3.5 Chloride 107 Carbon Dioxide 26.0 Anion Gap 6 BUN 17 Creatinine 0.67 Estim Creat Clear Calc 53.39 Est GFR (MDRD) Af Amer 110 Est GFR (MDRD) Non-Af 91 BUN/Creatinine Ratio 25.3 H Glucose 118 H Calcium 9.1 Radiography Diagnostic Testing: Clinical Impression(s) from Imaging Studies Brain CT 08/19/23 22:16 IMPRESSION: Chronic involutional changes of the brain. No acute hemorrhage Electronically Signed: Ramon Guerrero MD at 22:40 EST , Discharge Plan Triage Chief Complaint: Hypertension ED Provider: Efra Alfaro Dx/Rx/DC Orders Clinical Impression: Hypertension Instructions: ED Hypertension, Established Prescriptions: No Action atorvastatin 80 MG tablet 80 mg PO QHS Qty: 30 0RF Patient Comments: cholesterol lowering lisinopril 20 MG tablet 20 mg PO BID Qty: 60 0RF Patient Comments: reduce blood pressure Primary Care Provider: Wolf Puentes Referrals: Wolf Puentes DO [Primary Care Provider] - As soon as possible (Call Tuesday for an appointment to be rechecked.) Disposition Disposition: Home, Self Care
[2023-08-19 21:00] VITALS: BP 125/80; PULSE 68
[2023-08-19 21:10] LABS: Absolute Lymphocyte Count 1.91 X10^3/uL (0.83-4.51); Absolute Neutrophil Count 4.3 X10^3/uL (2.0-7.7); Basophil# 0.05 X10^3/uL; Basophil% 0.7 % (0-1); Eosinophil# 0.22 X10^3/uL; Eosinophils% 3.1 % (0-5); Hematocrit 40.6 % (37-47); Hemoglobin 13.7 g/dL (12.0-15.0); Lymphocyte # 1.91 X10^3/ul (0.83-4.51); Lymphocyte % 26.6 % (19-41); Mean Corp Hgb Conc 33.7 g/dL (32-36); Mean Corpuscular Hgb 28.5 pg (27.0-32.0); Mean Corpuscular Volume 84.6 fL (81-99); Mean Platelet Vol. 10.6 fl (6.2-12.0); Monocyte# 0.69 X10^3/uL; Monocyte% 9.6 % (0-10); NRBC Flagged by Analyzer 0 % (0-5); Neutrophil # 4.28 X10^3/uL (2.7-7.7); Neutrophil % 59.7 % (47-70); Platelet Count 308 K/mm3 (150-450); RBC Distribution Width CV 13.4 % (11.6-14.6); RBC Distribution Width SD 41.4 fl (35.1-43.9); White Blood Count 7.2 K/mm3 (4.4-11.0)
[2023-08-19 21:29] LABS: Anion Gap 6 (5-15); BUN 17 mg/dL (7-18); BUN/Creat Ratio 25.3 RATIO (10-20); Calcium,Total 9.1 mg/dL (8.5-10.1); Chloride 107 mmol/L (98-107); Creatinine, Serum 0.67 mg/dL (0.55-1.02); EST Glomerular Filtration Rate 91 mL/min (>60); Est Glom Filt Rate - Afr Amer 110 mL/min (>60); Estimated Creatinine Clearance 53.39 ml/min; Glucose 118 mg/dL (74-106); Potassium 3.5 mmol/L (3.5-5.1); Sodium Level 139 mmol/L (136-145)
--- NOTE | 2023-08-19 22:16 | CT_ITS ---
STUDY: CT BRAIN WITHOUT CONTRAST REASON FOR EXAM: Female, 72 years old. unsteadiness RADIATION DOSAGE (If Supplied By Facility): CTDIvol = ( 44.99 ) mGy, DLP = ( 812.98 ) mGycm TECHNIQUE: Transaxial CT imaging of the brain was performed without administration of intravenous contrast material. Individualized dose optimization techniques were used for this CT. COMPARISON: No relevant priors. FINDINGS: Normal soft tissue structures. Normal calvarium. Normal size ventricles and extra-axial spaces for the patient''s age. Normal white matter tracts of the cerebral hemispheres. There are small punctate calcifications of the basal ganglia which are seen in the aging brain as a normal variant. Normal brainstem. Normal cerebellum. There is no intracranial hemorrhage. There are no findings of an acute ischemic infarction. Normal visualized paranasal sinuses. CT/Brain/Head without Contrast IMPRESSION: Chronic involutional changes of the brain. No acute hemorrhage Electronically Signed: Ramon Guerrero MD at 22:40 EST ,
[2023-08-19 23:00] VITALS: BP 126/64
== END 2023-08-19 23:02 | disposition home or self-care (01) ==
PROVIDERS: Emergency Provider Emergency Medicine; PCP Preventive Medicine Occupational Medicine; Visit Provider Emergency Medicine
DX: I10 Essential (primary) hypertension (principal); R73.9 Hyperglycemia, unspecified; E78.5 Hyperlipidemia, unspecified; Z86.73 Personal history of transient ischemic attack (TIA), and cerebral infarction without residual deficits
CPT/HCPCS: 70450; 80048; 85025; 99283; A4216

== ENCOUNTER → 2023-11-07 | Outpatient (CLI) | payer MEDICARE, SELFPAY ==
[2023-11-07 16:58] LABS: Absolute Lymphocyte Count 2.33 X10^3/uL (0.83-4.51); Absolute Neutrophil Count 3.8 X10^3/uL (2.0-7.7); Basophil# 0.05 X10^3/uL; Basophil% 0.7 % (0-1); Eosinophils% 4.2 % (0-5); Hematocrit 41.4 % (37-47); Hemoglobin 13.7 g/dL (12.0-15.0); Lymphocyte # 2.33 X10^3/ul (0.83-4.51); Lymphocyte % 32.8 % (19-41); Mean Corp Hgb Conc 33.1 g/dL (32-36); Mean Corpuscular Hgb 28.8 pg (27.0-32.0); Mean Platelet Vol. 10.6 fl (6.2-12.0); Monocyte# 0.61 X10^3/uL; Monocyte% 8.6 % (0-10); NRBC Flagged by Analyzer 0 % (0-5); Neutrophil % 53.4 % (47-70); Platelet Count 288 K/mm3 (150-450); RBC Distribution Width CV 13.5 % (11.6-14.6); RBC Distribution Width SD 43.4 fl (35.1-43.9); Red Blood Count 4.76 M/mm3 (4.2-5.4); White Blood Count 7.1 K/mm3 (4.4-11.0)
[2023-11-07 17:34] LABS: ALB/GLOB Ratio 1.1 RATIO (0.9-2.4); AST(SGOT) 29 U/L (15-37); Alanine Aminotransfer ALT/SGPT 38 U/L (13-56); Albumin, Serum 4.1 g/dL (3.2-5.0); Alkaline Phosphatase 152 U/L (45-117); Anion Gap 3 (5-15); BUN 13 mg/dL (7-18); BUN/Creat Ratio 17.3 RATIO (10-20); Chloride 107 mmol/L (98-107); Cholesterol 108 mg/dL (200); Creatinine, Serum 0.75 mg/dL (0.55-1.02); EST Glomerular Filtration Rate 80 mL/min (>60); Est Glom Filt Rate - Afr Amer 97 mL/min (>60); Globulin 3.8 g/dL (2.2-4.2); Glucose 108 mg/dL (74-106); High Density Lipoprotein 55 mg/dL; Potassium 4.7 mmol/L (3.5-5.1); Protein, Total 7.9 g/dL (6.4-8.2); Sodium Level 140 mmol/L (136-145); Triglycerides 83 mg/dL; Very Low Density Lipoprotein 17 mg/dL (5-40)
[2023-11-07 18:41] LABS: Microalbumin,Random Urine 21.7 mg/L (NO RANGE EST.); Microalbumin:Creatinine Ratio 29.5 mg/g CRE (<30 mg/g CRE)
== END | disposition home or self-care (01) ==
LOC: LAB 16:07
PROVIDERS: PCP Preventive Medicine Occupational Medicine; Visit Provider Preventive Medicine Occupational Medicine
DX: I10 Essential (primary) hypertension (principal); R26.89 Other abnormalities of gait and mobility; E78.5 Hyperlipidemia, unspecified
CPT/HCPCS: 36415; 80053; 80061; 82043; 82570; 85025

== ENCOUNTER 2024-04-06 16:59 | Emergency (ER) | payer MEDICARE, SELFPAY ==
[2024-04-06 17:00] VITALS: BP 129/89; PULSE 85; RESP 16; TEMP 36.3; O2SAT 95; BMI 24.2
--- NOTE | 2024-04-06 18:51 | CT_ITS ---
INDICATION: vertigo EXAMINATION: CT BRAIN WITHOUT CONTRAST, CTA HEAD, AND CTA NECK TECHNIQUE: Noncontrast axial images were obtained of the brain. Subsequently, routine carotid CT angiogram protocol was performed without and with IV contrast. In addition, images were obtained of the [place]. NASCET criteria using the distal ICAs for comparison were used for evaluation of stenoses. 3D reconstructions were reviewed. The protocol utilizes one or more of the following dose reduction techniques: automated exposure control, adjustment of mA and/or kV according to patient size,and/or use of iterative reconstruction technique. IV Contrast dosage and agent: COMPARISON: FINDINGS: --CT BRAIN WITHOUT CONTRAST: BRAIN PARENCHYMA: No intra- or extra-axial hemorrhage. No evidence of acute infarct. No intracranial mass or mass effect. Bilateral white matter microangiopathic ischemic changes. Posterior fossa structures are unremarkable. CSF SPACES: Appropriate for age. No hydrocephalus. Basal cisterns are patent. CALVARIUM, SKULL BASE, PARANASAL SINUSES AND MASTOID AIR CELLS: Clear. No discrete lytic or blastic abnormalities. --CTA NECK: AORTIC ARCH AND BRANCHES: Normal anatomy, patent. RIGHT CCA: No occlusion, significant stenosis or dissection. RIGHT ICA: No occlusion, significant stenosis or dissection. LEFT CCA: No occlusion, significant stenosis or dissection. LEFT ICA: No occlusion, significant stenosis or dissection. RIGHT VERTEBRAL ARTERY: No occlusion, significant stenosis or dissection. LEFT VERTEBRAL ARTERY: No occlusion, significant stenosis or dissection. NECK SOFT TISSUES: Unremarkable. There is a right pleural effusion. --CTA HEAD: --Anterior circulation: ICAs: No significant stenosis at the intracranial/visualized segments. ACAs: No significant stenosis at the visualized segments. ACOM: Present. MCAs: No significant stenosis at the visualized segments. --Posterior circulation: PCOMs: Patent bilaterally. returned goods sorter: No visualization of the left P1 segment. BASILAR ARTERY: No significant stenosis. VERTEBRAL ARTERIES: No significant stenosis at the intradural/visualized segments. No evidence of intracranial aneurysm or vascular malformation. CT/CTA Head AND Neck W/ Contrast IMPRESSION: Age-related changes in the brain. Normal CTA Carotid, and CTA Brain. Electronically Signed: Chuy Reina DO at 20:49 EDT ,
--- NOTE | 2024-04-06 18:51 | EKG12_ITS ---
Test Reason : WEAKNESS Blood Pressure : / mmHG Vent. Rate : 061 BPM Atrial Rate : 061 BPM P-R Int : 212 ms QRS Dur : 072 ms QT Int : 416 ms P-R-T Axes : 031 -02 028 degrees QTc Int : 418 ms Sinus rhythm with 1st degree A-V block Otherwise normal ECG Confirmed by SAMUEL MALDONADO ([id number]), editorial intern LEELA JENSEN ([id number]) on 04/10/2024 8:25:23 AM Referred By: Confirmed By:SAMUEL MALDONADO
--- NOTE | 2024-04-06 18:53 | EDS_ITS ---
HPI History of Present Illness Chief Complaint: Weakness Informant: patient and family Narrative Narrative: Presents here with son for evaluation worsening vertigo symptoms with spinning along with nausea. Feels unsteady on her gait. Reports symptoms since she was younger, however started a month ago having daily symptoms. No headache. She had a stroke 2013 with right side residual deficits and weakness in numbness in the right arm. She uses a walker to walk. She is on blood pressure and cholesterol medications. Denies any allergies. Denies any recent of her brain. Prior similar symptoms: Yes PFSH PFSH Medical History Fracture of right hip Hyperlipidemia Hypertension Hx of completed stroke Home Medications ?Medication ?Instructions ?Recorded ?Last Taken ?Type atorvastatin 80 mg tablet 80 mg PO QHS #30 TABLETS 05/15/14 Unknown Rx amlodipine 5 mg tablet 5 mg PO DAILY 04/06/24 Unknown History losartan 25 mg tablet 25 mg PO QHS 04/06/24 Unknown History metoclopramide HCl 5 mg tablet 5 mg PO TID PRN PRN dizziness or 04/06/24 Unknown Rx (Reglan) vertigo #20 tabs Allergy/AdvReac Type Severity Reaction Status Date / Time No Known Allergies Allergy Verified 04/06/24 17:00 Surgical History H/O: hysterectomy Social History household members: none Smoking Status: Never smoker alcohol intake: never substance use type: does not use ROS ROS ED Constitutional Constitutional ED: Denies chills, fever(s) or sweats Eyes Eyes: Denies change in vision ENT ENT ED: Denies dysphagia or sore throat Cardiovascular Cardiovascular: Denies chest pain, leg edema, palpitations or racing heartbeat Respiratory/Chest Respiratory/Chest: Denies cough, dyspnea or dyspnea on exertion Gastrointestinal Gastrointestinal: Reports nausea; Denies abdominal pain, diarrhea or vomiting Genitourinary Genitourinary ED: Denies dysuria, hematuria or urinary frequency Musculoskeletal Musculoskeletal: Denies back pain, extremity pain or neck pain Integumentary Denies rash or wounds Neurologic Neurologic: Reports other Details: Dizziness ; Denies headache(s), paresthesias or weakness EXAM Physical Exam Const Vital Signs: 04/06/24 17:00 04/06/24 19:00 04/06/24 19:00 Temperature 97.3 F L Temperature Source Temporal Pulse Rate 85 99 Respiratory Rate 16 20 H Respiratory Effort Normal Non-Labored Respiratory Pattern Normal Blood Pressure 129/89 H 149/89 H Blood Pressure Mean 102 109 Pulse Ox 95 97 Oxygen Delivery Method Room Air Room Air 04/06/24 21:42 04/06/24 22:03 Temperature 97.2 F L Temperature Source Pulse Rate 72 72 Respiratory Rate 18 18 Respiratory Effort Respiratory Pattern Blood Pressure 134/80 H 134/80 H Blood Pressure Mean 98 98 Pulse Ox 95 95 Oxygen Delivery Method Room Air Positive well nourished and well developed General Appearance ED: well developed and NAD HEENT Reports moist mucous membranes normocephalic and atraumatic Eyes EOMs intact bilaterally and conjunctivae normal Eyes Narrative: No nystagmus. General Eye ED: Yes normal appearance of both eyes Neck no lymphadenopathy and supple General: Negative for tenderness Chest Wall Chest: Negative for tenderness Resp normal respiratory effort and normal air movement Effort and Inspection: symmetric chest movement; Negative for respiratory distress Cardio regular rate, regular rhythm and no murmurs Peripheral Pulses: pulses 2+ throughout GI normal to inspection, nondistended, normoactive bowel sounds and non-tender Palpation: Negative for guarding or rebound tenderness present Back/Spine no CVA tenderness and no thoracic nor lumbar tenderness Extremity normal to inspection General Extremety ED: Negative for edema or tenderness General Extremity: Negative for edema Neuro oriented x3 and CN's II-XII intact bilaterally Neuro Narrative: NIH of 1 for paresthesias right arm however this is chronic. Normal cerebellar upper and lower extremities. Sensorium / Orientation: awake and alert Skin no rashes or lesions noted and no wounds MDM MDM MDM Narrative Medical decision making narrative: Interventions / MDM: Differential diagnosis: Vertigo Diagnosis considered but do not suspect: CVA, symptomatic intermittently for 1 month My EKG interpretation: Sinus rate of 61, no ST changes. T wave versions in anterior leads. QTc 418. Similar to EKG March 2022. Imaging independently reviewed and interpreted by myself: CT angiogram brain and cervical spine: No acute process read by radiology. External documents reviewed: N/A Test considered but not ordered:N/A ED course: Patient with no focal deficits chronic paresthesias right arm. Having vertigo symptoms. IV established fluids Reglan. Will check labs EKG. CT angiogram head and neck for further evaluation. Symptoms improved with Reglan. Monitor she was allowed to eat. Tolerated fine. She was ambulated with no difficulties. Prescription of Reglan to use as needed. She is referred to neurology as an outpatient for further evaluation and management as needed. Return precautions. All questions were answered. Re-evaluation: stable Disposition discussed with patient/family/significant other: Patient and son Case discussed with consulting clinician: N/A This note was generated with [employer] dictation software. It may contain incorrect words, spelling, and punctuation that were not noted in checking the note before signing. Lab Data Attestation: I reviewed the patient's lab results. Labs: Laboratory Results - last 24 hr 04/06/24 19:19 WBC 8.4 RBC 5.16 Hgb 14.3 Hct 42.2 MCV 81.8 MCH 27.7 MCHC 33.9 RDW Std Deviation 39.2 RDW Coeff of Quinten 13.2 Plt Count 298 MPV 10.1 Immature Gran % (Auto) 0.400 Neut % (Auto) 61.4 Lymph % (Auto) 25.9 [place] % (Auto) 9.3 Eos % (Auto) 2.3 Baso % (Auto) 0.7 Absolute Neuts (auto) 5.2 Absolute Lymphs (auto) 2.18 Nucleated RBC % 0 Sodium 136 Potassium 3.6 Chloride 105 Carbon Dioxide 26.0 Anion Gap 5 BUN 10 Creatinine 0.63 Estim Creat Clear Calc 48.06 Est GFR (MDRD) Af Amer 117 Est GFR (MDRD) Non-Af 97 BUN/Creatinine Ratio 15.8 Glucose 103 Calcium 9.4 Radiography Diagnostic Testing: Clinical Impression(s) from Imaging Studies Head/Neck CTA 04/06/24 18:51 IMPRESSION: Age-related changes in the brain. Normal CTA Carotid, and CTA Brain. Electronically Signed: Chuy Reina DO at 20:49 EDT Reading Location ID and State: [facility] / [place] Tel [phone], Service support , Discharge Plan Triage Chief Complaint: Weakness ED Provider: Basim Porras Dx/Rx/DC Orders Clinical Impression: Vertigo, Nausea Instructions: ED Vertigo, Unspecified Prescriptions: New metoclopramide HCl [Reglan] 5 mg tablet 5 mg PO TID PRN PRN (Reason: dizziness or vertigo) Qty: 20 0RF No Action atorvastatin 80 MG tablet 80 mg PO QHS Qty: 30 0RF Patient Comments: cholesterol lowering losartan 25 mg tablet 25 mg PO QHS amlodipine 5 mg tablet 5 mg PO DAILY Primary Care Provider: Wolf Puentes Referrals: Ramesh Asif MD [Non-Staff -Ordering Privileges] - 1 Week Wolf Puentes DO [Primary Care Provider] - Activity Restrictions/Additional Instructions: CT angiogram head and neck were negative. Take medication as prescribed. If you develop worsening symptoms not controlled medications, return to the ED for reevaluation. Follow-up with neurology. Print Language: French Disposition Disposition: Home, Self Care Discharge Date/Time: 04/06/24 22:23
[2024-04-06 19:00] VITALS: BP 149/89; PULSE 99; RESP 20; O2SAT 97
[2024-04-06] MEDS: 0.9% Normal Saline (500mL Bag) 500 ML 1000 ML IV (19:21)
[2024-04-06] MEDS: Metoclopramide 10 MG/2 ML Vial 5 MG IV (19:21)
[2024-04-06 19:29] LABS: Absolute Lymphocyte Count 2.18 X10^3/uL (0.83-4.51); Absolute Neutrophil Count 5.2 X10^3/uL (2.0-7.7); Basophil# 0.06 X10^3/uL; Basophil% 0.7 % (0-1); Eosinophil# 0.19 X10^3/uL; Eosinophils% 2.3 % (0-5); Hematocrit 42.2 % (37-47); Hemoglobin 14.3 g/dL (12.0-15.0); Lymphocyte # 2.18 X10^3/ul (0.83-4.51); Lymphocyte % 25.9 % (19-41); Mean Corp Hgb Conc 33.9 g/dL (32-36); Mean Corpuscular Hgb 27.7 pg (27.0-32.0); Mean Corpuscular Volume 81.8 fL (81-99); Mean Platelet Vol. 10.1 fl (6.2-12.0); Monocyte# 0.78 X10^3/uL; Monocyte% 9.3 % (0-10); NRBC Flagged by Analyzer 0 % (0-5); Neutrophil # 5.19 X10^3/uL (2.7-7.7); Neutrophil % 61.4 % (47-70); Platelet Count 298 K/mm3 (150-450); RBC Distribution Width CV 13.2 % (11.6-14.6); RBC Distribution Width SD 39.2 fl (35.1-43.9); Red Blood Count 5.16 M/mm3 (4.2-5.4); White Blood Count 8.4 K/mm3 (4.4-11.0)
[2024-04-06 19:45] LABS: Anion Gap 5 (5-15); BUN 10 mg/dL (7-18); BUN/Creat Ratio 15.8 RATIO (10-20); Calcium,Total 9.4 mg/dL (8.5-10.1); Chloride 105 mmol/L (98-107); Creatinine, Serum 0.63 mg/dL (0.55-1.02); EST Glomerular Filtration Rate 97 mL/min (>60); Est Glom Filt Rate - Afr Amer 117 mL/min (>60); Estimated Creatinine Clearance 48.06 ml/min; Glucose 103 mg/dL (74-106); Potassium 3.6 mmol/L (3.5-5.1); Sodium Level 136 mmol/L (136-145)
[2024-04-06 21:42] VITALS: BP 134/80; PULSE 72; RESP 18; O2SAT 95
[2024-04-06 22:03] VITALS: BP 134/80; PULSE 72; RESP 18; TEMP 36.2; O2SAT 95
== END 2024-04-06 22:23 | disposition home or self-care (01) ==
PROVIDERS: Emergency Provider Emergency Medicine; PCP Preventive Medicine Occupational Medicine; Visit Provider Emergency Medicine
DX: R42 Dizziness and giddiness (principal); I69.351 Hemiplegia and hemiparesis following cerebral infarction affecting right dominant side; I10 Essential (primary) hypertension; E78.5 Hyperlipidemia, unspecified; R11.0 Nausea; Z79.899 Other long term (current) drug therapy
CPT/HCPCS: 70496; 70498; 80048; 85025; 93005; 96361; 96374; 99284; J7040; Q9967; A4216

== ENCOUNTER 2024-06-13 16:19 | Inpatient (IN) | payer MEDICARE, SELFPAY ==
[2024-06-13 16:21] VITALS: BP 91/69; PULSE 80; RESP 16; TEMP 36.9; O2SAT 98
[2024-06-13 16:23] VITALS: BMI 22.8
--- NOTE | 2024-06-13 16:44 | ED.RN ---
PT CAME TO ED WITH HER HALI. PT LIVES ALONE AND GETS AROUND WITH A WHEELED WALKER. SHE FELL AT HOME 2 WEEKSAGO. SHE HAS HAD PAIN IN HER RIGHT HIP. HALI SAID IT WAS HARD TO GET HER TO COME INTO THE ED. SHE DENIES ANY LOC OR HITTING HER HEAD WHEN SHE FELL. SHE STATES SHE LOST HER FOOTING AND WENT DOWN ON HER HIP.
--- NOTE | 2024-06-13 17:00 | EDS_ITS ---
HPI History of Present Illness Chief Complaint: Back Informant: patient Onset/Context/Timing Onset: Weeks (2) Injury: fall Timing: Continuous Quality: Aching Location: Thoracic Worsened by: improves with Movement Relieved by: Nothing Associated Symptoms Associated Symptoms: Tingling; Negative for Numbness, Radiation to Right Leg, Radiation to Left Leg, Fever, Abdominal Pain, Dysuria, Unable to Ambulate, Unable to Transfer, Urinary Retention, Urinary Incontinence or Fecal Incontin ence Narrative Narrative: Patient presents with posterior rib and thoracic back pain that began after a fall 2 weeks ago. Patient states her pain has been constant. Patient states it is worse with certain movements. Patient describes her pain as aching. Patient states her pain is mainly over her right rib area. Patient states she has had a prior stroke with some residual right-sided weakness. Patient denies any radiation of the pain. Patient denies any bowel or bladder changes. Patient denies any saddle anesthesia. [facility] Medical History Fracture of right hip Hyperlipidemia Hypertension Hx of completed stroke Home Medications ?Medication ?Instructions ?Recorded ?Last Taken ?Type atorvastatin 80 mg tablet 80 mg PO QHS #30 TABLETS 05/15/14 06/12/24 Rx amlodipine 5 mg tablet 5 mg PO DAILY 04/06/24 06/13/24 History losartan 25 mg tablet 25 mg PO QHS 04/06/24 06/13/24 History meclizine 12.5 mg tablet 12.5 mg PO TID PRN PRN dizziness 06/13/24 Unknown History Allergy/AdvReac Type Severity Reaction Status Date / Time No Known Allergies Allergy Verified 06/13/24 16:45 Surgical History Hx of cataract surgery H/O: hysterectomy Social History household members: none Smoking Status: Never smoker alcohol intake: never substance use type: does not use ROS ROS ED Constitutional Constitutional ED: Denies chills or fever(s) Eyes Eyes: Denies blurry vision or change in vision ENT ENT ED: Denies rhinorrhea or sore throat Cardiovascular Cardiovascular: Denies chest pain or palpitations Respiratory/Chest Respiratory/Chest: Denies cough or dyspnea Gastrointestinal Gastrointestinal: Denies nausea or vomiting Genitourinary Genitourinary ED: Denies dysuria or hematuria Musculoskeletal Musculoskeletal: Reports back pain; Denies neck pain Integumentary Denies abscess or rash Neurologic Neurologic: Denies headache(s) or weakness Allergic/Immunologic Allergic/Immunologic ED: Denies mouth swelling or urticaria EXAM Physical Exam Const Vital Signs: 06/13/24 16:21 06/13/24 20:00 06/13/24 22:04 Temperature 98.4 F 98 F Temperature Source Oral Pulse Rate 80 76 74 Respiratory Rate 16 25 H 20 H Blood Pressure 91/69 138/100 H 122/100 H Blood Pressure Mean 76 112 107 Pulse Ox 98 95 94 Oxygen Delivery Method Room Air Room Air Positive well nourished and well developed General Appearance ED: well developed and NAD HEENT Reports moist mucous membranes Neck supple and no JVD Chest Wall Chest Narrative: There is tenderness over the posterior and lateral aspect of the right fourth, fifth, sixth, and seventh rib areas. There is no bony crepitance or step-off. There is no subcutaneous emphysema palpated. Resp normal respiratory effort and clear to auscultation bilaterally Cardio regular rate and regular rhythm GI soft to palpation, non-tender and non-distended Back/Spine Back/Spine Narrative: There is no thoracic or lumbar spinal tenderness. There is no bony crepitance or step-off. Range of motion was slightly limited in all motions of the thoracic spine secondary to pain. Strength is 5/5 bilaterally in the upper and lower extremities. There are no sensory deficits. Extremity normal to inspection General Extremety ED: Negative for edema General Extremity: Negative for edema Neuro oriented x3 and no sensory deficits noted Sensorium / Orientation: alert Motor Exam: strength 5/5 throughout Psych mental status grossly normal MDM MDM MDM Narrative Medical decision making narrative: Differential diagnosis includes rib fracture, pneumothorax, contusion, and muscle strain. X-rays of the right ribs will be obtained to assess for fracture and pneumothorax. Lab Data Attestation: I reviewed the patient's lab results. Lab results narrative: CBC was reviewed and was within normal limits. PT with INR and PTT were reviewed. Pro time is 14.7 and INR is 1.2. PTT was normal at 31.8. Basic metabolic profile was reviewed. Potassium was slightly low at 3.2. BNP was reviewed and was normal at 41.3. Labs: Laboratory Results - last 24 hr 06/13/24 18:14 WBC 8.0 RBC 5.12 Hgb 13.9 Hct 41.7 MCV 81.4 MCH 27.1 MCHC 33.3 RDW Std Deviation 39.0 RDW Coeff of Quinten 13.2 Plt Count 301 MPV 9.6 Immature Gran % (Auto) 0.300 Neut % (Auto) 65.9 Lymph % (Auto) 19.8 [place] % (Auto) 10.0 Eos % (Auto) 3.5 Baso % (Auto) 0.5 Absolute Neuts (auto) 5.3 Absolute Lymphs (auto) 1.58 Nucleated RBC % 0 PT 14.7 INR 1.2 APTT 31.8 Sodium 138 Potassium 3.2 L Chloride 104 Carbon Dioxide 25.0 Anion Gap 9 BUN 8 Creatinine 0.57 Estim Creat Clear Calc 48.06 Est GFR (MDRD) Af Amer 132 Est GFR (MDRD) Non-Af 109 BUN/Creatinine Ratio 14.0 Glucose 94 Calcium 9.3 B-Natriuretic Peptide 41.3 Radiography Diagnostic Testing: Clinical Impression(s) from Imaging Studies Ribs w/Chest X-Ray 06/13/24 17:29 IMPRESSION: No evidence of displaced rib fracture. Complete opacification of the right hemithorax. Electronically Signed: Chuy Reina DO at 17:42 EST Reading Location ID and State: [facility] / [place] Tel [phone], Service support , Chest CT 06/13/24 17:59 IMPRESSION: Left pulmonary embolism. Large right pleural effusion with complete collapse of the right lung. Electronically Signed: Chuy Reina DO at 19:14 EST , ADDENDUM: 06/13/24 193 IMPRESSION: Left pulmonary embolism. Large right pleural effusion with complete collapse of the right lung. N.B. : The above Results were Read Back by Chuy Reina DO to Bony Mancilla DO, and understanding confirmed on 06/13/2024 19:25:41 (ET). Electronically Signed: Chuy Reina DO at 19:14 EST , X-rays of the right ribs were obtained. There are 3 views. On my independent interpretation, there is complete opacification of the right hemithorax. There is no rib fracture noted. Radiologist also interpreted the x-rays and agrees. CT scan of the chest was obtained. There is a left pulmonary embolism. There is a large right pleural effusion with complete collapse of the right lung. This was interpreted by the radiologist was also independently reviewed by myself. Management Discussion w/another healthcare provider: Hospitalist and Yard Worker Treatment and Re-Evaluation Narrative: Patient was advised of her findings. Patient was given a dose of Eliquis here for the pulmonary embolism. Case was discussed with the hospitalist. He recommended contacting pulmonology for possible thoracentesis. Case was discussed with Dr. uL from pulmonology. He recommended weight-based heparin and holding any more Eliquis. He will evaluate the patient in the hospital for possible thoracentesis. Case was discussed with the hospitalist. He will admit the patient to his service. Patient and family understood and were agreeable with plan. All questions were answered. Discharge Plan Dx/Rx/DC Orders Clinical Impression: Pleural effusion, right, Contusion of rib on right side, Pulmonary embolism Disposition Disposition: Acute Care [facility]
--- NOTE | 2024-06-13 17:29 | RAD_ITS ---
INDICATION: Fall EXAMINATION/TECHNIQUE: X-RAY - XR Ribs Unilateral W/ PA Chest Min 3 Views COMPARISON: FINDINGS: SOFT TISSUES: No soft tissue swelling or gas. BONES: No displaced fracture. No sclerotic or destructive changes observed. VISUALIZED LUNGS: Complete opacification of the right hemithorax. No pneumothorax. RAD/Ribs Uni Min 3V w/PA Chest IMPRESSION: No evidence of displaced rib fracture. Complete opacification of the right hemithorax. Electronically Signed: Chuy Reina DO at 17:42 EST ,
--- NOTE | 2024-06-13 17:59 | CT_ITS ---
We are attempting to reach an attending provider to discuss findings. An addendum with communication details will be sent when the communication is complete. INDICATION: Pleural effusion EXAMINATION: CT CHEST WITH CONTRAST - CT Chest W/ Contrast Injection TECHNIQUE: Helically acquired images were obtained of the chest following IV contrast. The protocol utilizes one or more of the following dose reduction techniques: automated exposure control, adjustment of mA and/or kV according to patient size,and/or use of iterative reconstruction technique. IV Contrast dosage and agent: RADIATION DOSAGE (If Supplied By Facility): CTDIvol = ( 9.84 ) mGy, DLP = ( 384.12 ) mGycm COMPARISON: FINDINGS: LUNGS, PLEURA AND LARGE AIRWAYS: Large right pleural effusion with complete collapse of the right lung. No pneumothorax. THYROID: No thyroid lesions. HEART AND PERICARDIUM: Heart size is normal. No pericardial effusion. VESSELS: Thoracic aorta is not dilated. No aortic dissection. There are filling defects within the left upper and left lower lobe peripheral pulmonary arteries compatible pulmonary embolism. MEDIASTINUM AND ADELINA: No mediastinal or hilar adenopathy. Esophagus is unremarkable. No hiatal hernia. UPPER ABDOMEN: Left renal cyst. BONES: Degenerative vertebral changes. No suspicious lytic or blastic abnormality. CT/Chest WITH Contrast IMPRESSION: Left pulmonary embolism. Large right pleural effusion with complete collapse of the right lung. Electronically Signed: Chuy Reina DO at 19:14 EST ,
[2024-06-13 18:20] LABS: Absolute Lymphocyte Count 1.58 X10^3/uL (0.83-4.51); Absolute Neutrophil Count 5.3 X10^3/uL (2.0-7.7); Basophil# 0.04 X10^3/uL; Basophil% 0.5 % (0-1); Eosinophil# 0.28 X10^3/uL; Eosinophils% 3.5 % (0-5); Hematocrit 41.7 % (37-47); Hemoglobin 13.9 g/dL (12.0-15.0); Lymphocyte # 1.58 X10^3/ul (0.83-4.51); Lymphocyte % 19.8 % (19-41); Mean Corp Hgb Conc 33.3 g/dL (32-36); Mean Corpuscular Hgb 27.1 pg (27.0-32.0); Mean Corpuscular Volume 81.4 fL (81-99); Mean Platelet Vol. 9.6 fl (6.2-12.0); NRBC Flagged by Analyzer 0 % (0-5); Neutrophil # 5.28 X10^3/uL (2.7-7.7); Neutrophil % 65.9 % (47-70); Platelet Count 301 K/mm3 (150-450); RBC Distribution Width CV 13.2 % (11.6-14.6); Red Blood Count 5.12 M/mm3 (4.2-5.4)
[2024-06-13 18:28] LABS: International Normalized Ratio 1.2; Prothrombin Time (Protime)PT. 14.7 SECONDS (11.7-14.9)
[2024-06-13 18:30] LABS: Partial Thromboplast Time 31.8 Seconds (24.1-36.2)
[2024-06-13 18:42] LABS: Anion Gap 9 (5-15); BUN 8 mg/dL (7-18); Calcium,Total 9.3 mg/dL (8.5-10.1); Chloride 104 mmol/L (98-107); Creatinine, Serum 0.57 mg/dL (0.55-1.02); EST Glomerular Filtration Rate 109 mL/min (>60); Est Glom Filt Rate - Afr Amer 132 mL/min (>60); Estimated Creatinine Clearance 48.06 ml/min; Glucose 94 mg/dL (74-106); Potassium 3.2 mmol/L (3.5-5.1); Sodium Level 138 mmol/L (136-145)
--- NOTE | 2024-06-13 18:48 | ED.RN ---
VS NOT TAKEN AT THIS TIME. PT IS IN IMAGING. WILL UPDATE VS WHEN PT RETURNS TO THE UNIT
[2024-06-13 18:51] LABS: BNP,B-Type NATRIURETIC PEPTIDE 41.3 pg/mL (0-100)
[2024-06-13 20:00] VITALS: BP 138/100; PULSE 76; RESP 25; O2SAT 95
[2024-06-13] MEDS: APIXABAN 5 MG TABLET 10 MG PO (20:08)
--- NOTE | 2024-06-13 20:13 | HP.PCM.HOS_ITS ---
[facility] - General General Date of Admission: 06/13/24 Date of Service: 06/13/24 Chief Complaint: SOB after Fall . HPI Baldomero BEDOYA, is a 73 F with a past medical history of essential hypertension, hyperlipidemia, PAF; with RVR, history of CVA; with residual Right-sided weakness, history of vertigo; on prn meclizine, history of hysterectomy, history of cataract surgery and OA; with history of Right hip fracture who presents to [facility] ER complaining of SOB after fall. Ms. Bedoya reports her symptoms began approximately 2 weeks ago after she fell striking her Right posterior rib cage with subsequent constant pain since that time that is made worse with movement. She describes the pain as aching, moderate and non- radiating with pain focused over the entire Right lower rib cage so she finally decided to come in for further evaluation and treatment to see if she broke a rib. She denies associated fever, chills, nausea, vomiting, diarrhea, constipation or diarrhea but she does admit to chronically poor balance with increasing unsteadiness on her feet. In the ER she was noted to have CXR evidence of complete collapse of the Right lung followed by a CTA of the chest confirming complete opacification of the Right lung along with a Pulmonary Embolism of the Left lung after recent Mechanical Fall with subsequent likely Hemorrhagic Pleural Effusion after Fall with PE requiring treatment with anticoagulation plus laboratory evidence of Hypokalemia of 3.2 mmol/L present on admission and she was then admitted to the PCU for ongoing care for a stay that is expected to extend beyond 2 midnights. [facility] Medical History Fracture of right hip Hyperlipidemia Hypertension Hx of completed stroke Home Medications ?Medication ?Instructions ?Recorded ?Last Taken ?Type atorvastatin 80 mg tablet 80 mg PO QHS #30 TABLETS 05/15/14 06/12/24 Rx amlodipine 5 mg tablet 5 mg PO DAILY 04/06/24 06/13/24 History losartan 25 mg tablet 25 mg PO QHS 04/06/24 06/13/24 History meclizine 12.5 mg tablet 12.5 mg PO TID PRN PRN dizziness 06/13/24 Unknown History Allergy/AdvReac Type Severity Reaction Status Date / Time No Known Allergies Allergy Verified 06/13/24 16:45 Surgical History Hx of cataract surgery H/O: hysterectomy Social History household members: none Smoking Status: Never smoker alcohol intake: never substance use type: does not use ROS ROS Narrative Review of Systems: Constitutional: Patient denies fever or chills. Eyes: Patient denies changes in vision or discharge from eyes. ENT: Patient denies runny nose, sore throat or ear pain. Resp: Patient denies SOB or cough as per HPI. CV: Patient admits to Right-sided chest pain but she denies palpitations or heart racing. GI: Patient denies nausea, vomiting, abdominal pain, diarrhea or constipation. : Patient denies dysuria or hematuria. MSK: Patient admits to back pain but she denies neck pain. Skin: Patient denies rash, abscess or jaundice. Psych: Patient denies symptoms of uncontrolled depression or anxiety. Neuro: Patient denies headache, paresthesias or focal neurologic deficits. Allergy: Patient denies lip swelling, tongue swelling or urticaria. Hematology: Patient admits to hemoptysis as per HPI. Endocrinology: Patient denies polyuria, polydipsia and polyphagia. 14 point ROS otherwise negative except for positives noted above as per HPI. Vital Signs Vital Signs Vital Signs: 06/13/24 16:21 Temperature 98.4 F Temperature Source Oral Pulse Rate 80 Respiratory Rate 16 Blood Pressure 91/69 Blood Pressure Mean 76 Pulse Ox 98 Oxygen Delivery Method Room Air Weight Weight: 125 lb 0.034 oz Body Mass Index (BMI) 22.8 Physical Exam Const alert, oriented x3, no apparent distress and healthy appearing Constitutional Narrative: Patient appears petite and frail. General Appearance: cooperative HEENT normocephalic, head/scalp atraumatic, hearing grossly normal bilaterally and moist oral mucous membranes Eyes PERRL and EOMs intact bilaterally Neck no lymphadenopathy and supple Resp Resp Narrative: Diminished breath sounds on the Right. Cardio regular rate and regular rhythm GI normal to inspection, nondistended, normoactive bowel sounds, soft to palpation, non-tender and non-distended Extremity normal to inspection, full ROM and no clubbing, cyanosis or edema Skin Skin Narrative: Patient has no evidence of rash, abscess or jaundice. Neuro oriented x3, CN's II-XII intact bilaterally, moves all extremities and no focal motor deficits Sensorium / Orientation: awake, alert, oriented to person, oriented to place and oriented to time Speech: speech normal Psych affect normal Results Medical Records Data Attestation: I reviewed the patient's medical records Lab / Micro Data Attestation: I reviewed the patient's lab results. 06/14/24 03:03 06/14/24 03:03 Labs: Laboratory Results - last 24 hr 06/13/24 18:14: WBC 8.0, RBC 5.12, Hgb 13.9, Hct 41.7, MCV 81.4, MCH 27.1, MCHC 33.3, RDW Std Deviation 39.0, RDW Coeff of Quinten 13.2, Plt Count 301, MPV 9.6, Immature Gran % (Auto) 0.300, Neut % (Auto) 65.9, Lymph % (Auto) 19.8, [place] % (Auto) 10.0, Eos % (Auto) 3.5, Baso % (Auto) 0.5, Absolute Neuts (auto) 5.3, Absolute Lymphs (auto) 1.58, Nucleated RBC % 0, PT 14.7, INR 1.2, APTT 31.8, Sodium 138, Potassium 3.2 L, Chloride 104, Carbon Dioxide 25.0, Anion Gap 9, BUN 8, Creatinine 0.57, Estim Creat Clear Calc 48.06, Est GFR (MDRD) Af Amer 132, Est GFR (MDRD) Non-Af 109, BUN/Creatinine Ratio 14.0, Glucose 94, Calcium 9.3, B-Natriuretic Peptide 41.3 Imaging Radiology Impression Ribs w/Chest X-Ray 06/13/24 17:29 IMPRESSION: No evidence of displaced rib fracture. Complete opacification of the right hemithorax. Electronically Signed: Chuy Reina DO at 17:42 EST , Chest CT 06/13/24 17:59 IMPRESSION: Left pulmonary embolism. Large right pleural effusion with complete collapse of the right lung. Electronically Signed: Chuy Reina DO at 19:14 EST , ADDENDUM: 06/13/24 193 IMPRESSION: Left pulmonary embolism. Large right pleural effusion with complete collapse of the right lung. N.B. : The above Results were Read Back by Chuy Reina DO to Bony Mancilla DO, and understanding confirmed on 06/13/2024 19:25:41 (ET). Electronically Signed: Chuy Reina DO at 19:14 EST , Assessment & Plan Assessment/Plan (1) Pleural effusion, right: (2) Pulmonary embolism: QUALIFIERS: Acute cor pulmonale presence: without acute cor pulmonale Chronicity: acute Pulmonary embolism type: other Qualified Code(s): I26.99 - Other pulmonary embolism without acute cor pulmonale (3) Contusion of rib on right side: QUALIFIERS: Encounter type: initial encounter Qualified Code(s): S20.211A - Contusion of right front wall of thorax, initial encounter (4) Hypokalemia: (5) Generalized weakness: (6) Ambulatory dysfunction: PLAN: Plan 1. CTA of the chest confirming complete opacification of the Right lung along with a Pulmonary Embolism of the Left lung after recent Mechanical Fall with a large Right Pleural Effusion - Admit to PCU. Keep NPO for possible thoracentesis. Give Tylenol prn for [id number] (level 1-5/10) pain or fever. Give Morphine 2mg IV q. 4 hours prn severe (level 6-10/10) pain. Finally, we will consult pulmonology to see this patient on-rounds in the AM for further recommendations on thoracentesis this admission with help appreciated in advance. 2. History of CVA; with residual Right-sided weakness and progressively worsening balance resulting in fall due to Generalized Weakness with Ambulatory Dysfunction precipitating #1 - PT/OT and Case Management to see patient on- rounds in the AM for further recommendations regarding possible subacute rehabilitation with help appreciated in advance. 3. OA; with history of Right hip fracture complicating #1 & #2 - Stable. Give Tylenol prn. 4. Hypokalemia of 3.2 mmol/L present on admission compounding #1 - #3 - Give supplemental KCl and then recheck level in the AM to ensure repletion. 5. Essential hypertension - Continue home medications give Hydralazine IV prn for systolic blood pressure > 160 mmHg. 6. Hyperlipidemia - Resume statin. 7. PAF; with RVR - Patient currently in NSR. 8. History of vertigo; on prn meclizine - Resume prn meclizine. 9. History of hysterectomy - Noted. 10. History of cataract surgery - Noted. 11. DVT prophylaxis - SCD's only with suspected blood in Right pleural effusion after recent fall. Total time: Approximately (but not less than) 75 minutes. Charges/Coding Visit Charges Inpatient E&M: 95415 Init Hosp L3
[2024-06-13] MEDS: Heparin Injection (Vial) 5,000 UNIT/ML VIAL 4000 UNIT IV (20:54)
[2024-06-13] MEDS: HEPARIN/D5w 25,000 UNITS 25,000 UNITS/250 ML IV.SOLN. 8 UNITS CONT INF (20:58)
[2024-06-13 22:04] VITALS: BP 122/100; PULSE 74; RESP 20; TEMP 36.6; O2SAT 94
[2024-06-13] MEDS: Potassium Chloride Oral Tablet 20 MEQ 60 MEQ PO (22:59)
[2024-06-13 23:41] VITALS: BMI 21.6
[2024-06-14 00:05] VITALS: BP 142/56; PULSE 62; RESP 18; TEMP 36.4; O2SAT 96
[2024-06-14] MEDS: Acetaminophen 325 MG Tablet 650 MG PO (00:06)
[2024-06-14] MEDS: KCL 20MEQ in 0.9% NS 20 MEQ/1,000 ML IV.SOLN. 50 MEQ IV (00:07)
--- NOTE | 2024-06-14 00:16 | NURSING ---
Per pharmacy 20 kcl with normal saline and heparin are compatible to be y-site together.
[2024-06-14 02:59] VITALS: BMI 21.6
[2024-06-14 03:13] LABS: Absolute Lymphocyte Count 1.81 X10^3/uL (0.83-4.51); Absolute Neutrophil Count 4.5 X10^3/uL (2.0-7.7); Basophil# 0.05 X10^3/uL; Basophil% 0.7 % (0-1); Eosinophil# 0.38 X10^3/uL; Hematocrit 37.7 % (37-47); Lymphocyte # 1.81 X10^3/ul (0.83-4.51); Lymphocyte % 23.7 % (19-41); Mean Corp Hgb Conc 34.5 g/dL (32-36); Mean Corpuscular Hgb 27.5 pg (27.0-32.0); Mean Corpuscular Volume 79.9 fL (81-99); Mean Platelet Vol. 9.6 fl (6.2-12.0); Monocyte# 0.85 X10^3/uL; Monocyte% 11.1 % (0-10); NRBC Flagged by Analyzer 0 % (0-5); Neutrophil # 4.52 X10^3/uL (2.7-7.7); Neutrophil % 59.2 % (47-70); Platelet Count 288 K/mm3 (150-450); RBC Distribution Width CV 13.2 % (11.6-14.6); RBC Distribution Width SD 37.5 fl (35.1-43.9); Red Blood Count 4.72 M/mm3 (4.2-5.4); White Blood Count 7.6 K/mm3 (4.4-11.0)
[2024-06-14 03:43] LABS: ALB/GLOB Ratio 0.9 RATIO (0.9-2.4); AST(SGOT) 21 U/L (15-37); Alanine Aminotransfer ALT/SGPT 19 U/L (13-56); Albumin, Serum 3.4 g/dL (3.2-5.0); Alkaline Phosphatase 128 U/L (45-117); Anion Gap 7 (5-15); BUN 8 mg/dL (7-18); BUN/Creat Ratio 16.3 RATIO (10-20); Calcium,Total 8.7 mg/dL (8.5-10.1); Chloride 108 mmol/L (98-107); Creatinine, Serum 0.49 mg/dL (0.55-1.02); EST Glomerular Filtration Rate 130 mL/min (>60); Est Glom Filt Rate - Afr Amer 158 mL/min (>60); Estimated Creatinine Clearance 48.06 ml/min; Globulin 3.9 g/dL (2.2-4.2); Glucose 102 mg/dL (74-106); Magnesium 1.9 mg/dL (1.6-2.6); Phosphorus 3.5 mg/dL (2.5-4.9); Potassium 3.9 mmol/L (3.5-5.1); Protein, Total 7.3 g/dL (6.4-8.2); Sodium Level 139 mmol/L (136-145)
[2024-06-14 04:03] LABS: Partial Thromboplast Time > 200.0 Seconds (24.1-36.2)
--- NOTE | 2024-06-14 06:08 | US_ITS ---
STUDY: SUPERFICIAL ULTRASOUND - RIGHT PLEURAL SPACE. REASON FOR EXAM: Female, 73 years old. Large Right Effusion TECHNIQUE: A superficial ultrasound was performed with real-time and static ricketts-scale imaging. COMPARISON: None. FINDINGS: There is a marked degree of loculation within the pleural cavity. This is not amenable to thoracentesis. US/Chest IMPRESSION: Marked degree of loculation within the pleural cavity. Nonamenable to a thoracentesis. Electronically Signed: Sidney Washington MD at 12:58 EST ,
[2024-06-14 06:46] VITALS: BP 135/76; PULSE 59; RESP 18; TEMP 36.8; O2SAT 94
[2024-06-14 07:09] LABS: LDH 214 U/L (84-246)
--- NOTE | 2024-06-14 07:28 | VDLE_ITS ---
Reason For Study: PULMONARY EMBOLISM (ON HEPARIN DRIP) RIGHT LEFT GSV is normal. GSV is normal. CFV is compressible, spontaneous, phasic, CFV is compressible, spontaneous, phasic, competent and demonstrates normal competent, and demonstrates normal augmentation. augmentation. FV is compressible, spontaneous, phasic, FV is compressible, spontaneous, phasic, competent and demonstrates normal competent and demonstrates normal augmentation. augmentation. POP V is compressible, spontaneous, phasic, POP V is compressible, spontaneous, phasic, competent and demonstrates normal competent and demonstrates normal augmentation. augmentation. T/P Trunk is compressible. T/P Trunk is compressible. PTV is compressible. PTV is compressible. RT PerV is compressible. LT PerV is compressible. Procedure This is a venous duplex using B-mode, color flow and spectral Doppler. Exam performed portable in patient room. The study was technically difficult. A preliminary report was called and/or faxed to [facility] @ 11:30 am. VL/Venous Duplex US - Wilfredo Extrem Interpretation Summary Deep veins of the lower extremities are bilaterally patent and compressible seg mentally. There is no evidence of deep vein thrombosis on either side. Valvular competence appears in tact within the proximal deep venous systems bilaterally. The great saphenous veins appear bila terally patent and compressible segmentally. Ordering Physician: Vlad Vyas Referring Physician: Wolf Puentes Performed By: Sofi Dimas, STEPHANY, RVT
--- NOTE | 2024-06-14 08:51 | PCM.PN.HOSP ---
Reason for Visit Reason for Visit: Diagnoses Hypokalemia (06/13/24) Other pulmonary embolism without acute cor pulmonale (06/13/24) Pleural effusion, not elsewhere classified (06/13/24) Difficulty in walking, not elsewhere classified (06/13/24) Weakness (06/13/24) Contusion of right front wall of thorax, initial encounter (06/13/24) Objective Data Objective Data Vital Signs: Vital Signs Temp Pulse Resp BP Pulse Ox O2 Del Method 98.2 F 59 L 18 135/76 H 94 Room Air 06/14/24 06:46 06/14/24 06:46 06/14/24 06:46 06/14/24 06:46 06/14/24 06:46 06/14/24 06:47 Oxygen Delivery Method Room Air Weight: 118 lb 6.212 oz Body Mass Index (BMI) 21.6 Intake & Output: Intake and Output for Last 24 Hours 06/12/24 06/13/24 06/14/24 23:59 23:59 23:59 Intake Total 56.67 / 56.67 Balance 56.67 / 56.67 Lab / Micro Data 06/14/24 03:03 06/14/24 03:03 Labs: Laboratory Results - last 24 hr 06/13/24 18:14: WBC 8.0, RBC 5.12, Hgb 13.9, Hct 41.7, MCV 81.4, MCH 27.1, MCHC 33.3, RDW Std Deviation 39.0, RDW Coeff of Quinten 13.2, Plt Count 301, MPV 9.6, Immature Gran % (Auto) 0.300, Neut % (Auto) 65.9, Lymph % (Auto) 19.8, [place] % (Auto) 10.0, Eos % (Auto) 3.5, Baso % (Auto) 0.5, Absolute Neuts (auto) 5.3, Absolute Lymphs (auto) 1.58, Nucleated RBC % 0, PT 14.7, INR 1.2, APTT 31.8, Sodium 138, Potassium 3.2 L, Chloride 104, Carbon Dioxide 25.0, Anion Gap 9, BUN 8, Creatinine 0.57, Estim Creat Clear Calc 48.06, Est GFR (MDRD) Af Amer 132, Est GFR (MDRD) Non-Af 109, BUN/Creatinine Ratio 14.0, Glucose 94, Calcium 9.3, B-Natriuretic Peptide 41.3 06/14/24 03:03: WBC 7.6, RBC 4.72, Hgb 13.0, Hct 37.7, MCV 79.9 L, MCH 27.5, MCHC 34.5, RDW Std Deviation 37.5, RDW Coeff of Quinten 13.2, Plt Count 288, MPV 9.6, Immature Gran % (Auto) 0.300, Neut % (Auto) 59.2, Lymph % (Auto) 23.7, [place] % (Auto) 11.1 H, Eos % (Auto) 5.0, Baso % (Auto) 0.7, Absolute Neuts (auto) 4.5, Absolute Lymphs (auto) 1.81, Nucleated RBC % 0, APTT > 200.0 H*, Sodium 139, Potassium 3.9, Chloride 108 H, Carbon Dioxide 24.0, Anion Gap 7, BUN 8, Creatinine 0.49 L, Estim Creat Clear Calc 48.06, Est GFR (MDRD) Af Amer 158, Est GFR (MDRD) Non-Af 130, BUN/Creatinine Ratio 16.3, Glucose 102, Calcium 8.7, Phosphorus 3.5, Magnesium 1.9, Total Bilirubin 0.50, AST 21, ALT 19, Alkaline Phosphatase 128 H, Lactate Dehydrogenase 214, Total Protein 7.3 06/14/24 03:03: Total Protein Cancelled, Albumin 3.4, Globulin 3.9 06/14/24 03:03: Globulin Cancelled, Albumin/Globulin Ratio 0.9 06/14/24 03:03: Albumin/Globulin Ratio Cancelled, TSH 1.950 Radiography Diagnostic Testing: Radiology Impression Ribs w/Chest X-Ray 06/13/24 17:29 IMPRESSION: No evidence of displaced rib fracture. Complete opacification of the right hemithorax. Electronically Signed: Chuy eRina DO at 17:42 EST Reading Location ID and State: [facility] / ID Tel [id number], Service support , Chest CT 06/13/24 17:59 IMPRESSION: Left pulmonary embolism. Large right pleural effusion with complete collapse of the right lung. Electronically Signed: Chuy Reina DO at 19:14 EST , ADDENDUM: 06/13/241931 IMPRESSION: Left pulmonary embolism. Large right pleural effusion with complete collapse of the right lung. N.B. : The above Results were Read Back by Chuy Reina DO to Bony Mancilla DO, and understanding confirmed on 06/13/2024 19:25:41 (ET). Electronically Signed: Chuy Reina DO at 19:14 EST , Physical Exam Narrative Seen and examined. Patient complain of right-sided anterior lateral rib pain and upper thoracic back pain. Leg swelling. Did not had BM for past 2 days. Physical exam General: Alert, Oriented x3, Cooperative HEENT: Atraumatic, PERRLA, EOMI, Normocephalic Oral: No Gingival or Mucosal Lesions/ Ulcerations Neck: Supple, No JVD, Negative Carotid Bruits Chest wall/Lungs: Air entry severely diminished in right lung below 4?5 ICS. Stony dullness, large right pleural effusion Cardiovascular: Sinus rhythm, Normal S1, Normal S2, No M/G/R Abdomen: Bowel Sounds Present, Soft, Non Tender, Non-Distended : No dysuria. No renal angle tenderness. No suprapubic tenderness. Extremities: Bilateral lower pitting below knee edema, Capillary Refill Less than 3 Seconds Skin: No rashes, No breakdown Musculoskeletal: No Tenderness to Palpation of Joints or Extremities. ROM restricted from degenerative arthritis Neurological: Cranial nerves II-XII grossly intact, DTR 2+/4. No acute focal neurological deficit. Psych/Mental Status: Flat affect Assessment & Plan Assessment/Plan (1) Pleural effusion, right: (2) Pulmonary embolism: QUALIFIERS: Acute cor pulmonale presence: without acute cor pulmonale Chronicity: acute Pulmonary embolism type: other Qualified Code(s): I26.99 - Other pulmonary embolism without acute cor pulmonale (3) Contusion of rib on right side: QUALIFIERS: Encounter type: initial encounter Qualified Code(s): S20.211A - Contusion of right front wall of thorax, initial encounter (4) Hypokalemia: (5) Generalized weakness: (6) Ambulatory dysfunction: PLAN: Plan 73-year-old female was admitted with posterior rib and thoracic back pain that started after a fall about 2 weeks ago. It was constant worse with certain movements, aching in type. Predominantly over right rib area. History of stroke with residual right-sided weakness. 1. CTA of the chest confirming complete opacification of the Right lung along with a Pulmonary Embolism of the Left lung after recent Mechanical Fall with a large Right Pleural Effusion - Admit to PCU. Keep NPO for possible thoracentesis. Pain control. Consult pulmonology Chest x-ray and CTA initially reviewed and shows right lung complete opacification. Echo from March 2022 reported EF 65%, LA mildly enlarged. Mild MR. Mild TR. RVSP 33 mmHg. Repeat echo ordered 2. History of CVA; with residual Right-sided weakness and progressively worsening balance resulting in fall due to Generalized Weakness with Ambulatory Dysfunction precipitating #1 - PT/OT and Case Management to see patient on-rounds in the AM for further recommendations regarding possible subacute rehabilitation with help appreciated in advance. 3. OA; with history of Right hip fracture - Stable. Give Tylenol prn. 4. Hypokalemia of 3.2 mmol/L present on admission: Potassium was replaced. Repeat K3.9. Serum magnesium and phosphorus normal. 5. Essential hypertension - Continue home medications give Hydralazine IV prn for systolic blood pressure > 160 mmHg. 6. Hyperlipidemia - Resume statin. 7. PAF; with RVR - Patient currently in NSR. INR 1.2. 8. History of vertigo; on prn meclizine - Resume prn meclizine. 9. History of hysterectomy - Noted. 10. History of cataract surgery - Noted. 11. DVT prophylaxis - SCD's only with suspected blood in Right pleural effusion after recent fall. Charges/Coding Visit Charges Inpatient E&M: 64970 Subs Hosp L2
--- NOTE | 2024-06-14 10:26 | CON.PCM.CC_ITS ---
Assessment & Plan Assessment/Plan (1) Pulmonary embolism: QUALIFIERS: Pulmonary embolism type: other Chronicity: acute A cute cor pulmonale presence: without acute cor pulmonale Qualified Code(s): I 26.99 - Other pulmonary embolism without acute cor pulmonale (2) Pleural effusion, right: PLAN: Plan RECOMMENDATIONS: 1. Proceed with ultrasound-guided thoracentesis. 2. Send pleural fluid for analysis. 3. If concern for hemothorax, patient may require tube thoracotomy. 4. Continue weight-based heparin infusion. 5. Encourage incentive spirometer use and mobilize patient as tolerated. IMPRESSIONS: 1. Unspecified right-sided pleural effusion following mechanical fall Clinical concern that the patient's pleural effusion may be secondary to her recent traumatic injury. Hemothorax would be in the differential. Therefore, I agree with proceeding with thoracentesis. If hemothorax is confirmed, the patient may require tube thoracotomy. She is otherwise stable from a respiratory perspective and is maintaining appropriate oxygen saturations on room air. Orders have been placed for pleural fluid studies. 2. Pulmonary emboli Continue weight-based heparin infusion. 3. History of CVA/hypertension/hyperlipidemia/paroxysmal atrial fibrillation Complicates care, management, recovery and prognosis. Continue home medications as indicated. This note was generated with [employer] dictation software. It may contain incorrect words, spelling, and punctuation that were not noted in checking the note before signing. HPI Consult Data Date of Consult: 06/14/24 HPI Narrative Reason for Consultation: Pleural effusion HPI Narrative: The patient is a 73-year-old female, with a history as outlined below, who presented to the emergency department on June 13 for the evaluation of posterior rib and thoracic pain that began 2 weeks ago after she sustained a fall. The patient reported that she experienced a mechanical fall several weeks ago after tripping on a step stool. She apparently struck her anterior right chest wall when she fell. The patient denied any prior pre-existing lung conditions. She denied a history of venous thromboembolic disease. On presentation to the emergency department, the patient was documented to be afebrile and hemodynamically stable. She was maintaining appropriate oxygen saturations on room air. Laboratory evaluation revealed a normal white blood cell count. Coagulation profile was notable for an INR of 1.2. Chemistry profile was notable for a potassium of 3.[address] chest with contrast demonstrated a large right pleural effusion with left upper lobe pulmonary emboli. The patient was started on a weight-based heparin infusion and was subsequently admitted to the hospital. [facility] Medical History Fracture of right hip Hyperlipidemia Hypertension Hx of completed stroke Home Medications ?Medication ?Instructions ?Recorded ?Last Taken ?Type atorvastatin 80 mg tablet 80 mg PO QHS #30 TABLETS 05/15/14 06/12/24 Rx amlodipine 5 mg tablet 5 mg PO DAILY 04/06/24 06/13/24 History losartan 25 mg tablet 25 mg PO QHS 04/06/24 06/13/24 History meclizine 12.5 mg tablet 12.5 mg PO TID PRN PRN dizziness 06/13/24 Unknown History Allergy/AdvReac Type Severity Reaction Status Date / Time No Known Allergies Allergy Verified 06/13/24 16:45 Surgical History Hx of cataract surgery H/O: hysterectomy Social History household members: none Smoking Status: Never smoker alcohol intake: never substance use type: does not use ROS ROS Narrative 10 systems were reviewed with pertinent positives as noted in the HPI above. Physical Exam Const alert, oriented x3 and no apparent distress General Appearance: cooperative HEENT normocephalic, head/scalp atraumatic and moist oral mucous membranes Eyes PERRL, EOMs intact bilaterally and conjunctivae normal Neck supple General: trachea midline Chest inspection of chest normal Resp normal respiratory effort Resp Narrative: Diminished air movement right lung base with dullness to percussion. Cardio regular rate and regular rhythm GI normal to inspection, nondistended, normoactive bowel sounds Extremity no clubbing, cyanosis or edema Skin no rashes or lesions noted Neuro CN's II-XII intact bilaterally, moves all extremities and no focal motor deficits Psych cooperative and affect normal Lab / Micro Data 06/14/24 03:03 06/14/24 03:03 Labs: Laboratory Results - last 24 hr 06/13/24 18:14: WBC 8.0, RBC 5.12, Hgb 13.9, Hct 41.7, MCV 81.4, MCH 27.1, MCHC 33.3, RDW Std Deviation 39.0, RDW Coeff of Quinten 13.2, Plt Count 301, MPV 9.6, Immature Gran % (Auto) 0.300, Neut % (Auto) 65.9, Lymph % (Auto) 19.8, Fajardo % (Auto) 10.0, Eos % (Auto) 3.5, Baso % (Auto) 0.5, Absolute Neuts (auto) 5.3, Absolute Lymphs (auto) 1.58, Nucleated RBC % 0, PT 14.7, INR 1.2, APTT 31.8, Sodium 138, Potassium 3.2 L, Chloride 104, Carbon Dioxide 25.0, Anion Gap 9, BUN 8, Creatinine 0.57, Estim Creat Clear Calc 48.06, Est GFR (MDRD) Af Amer 132, Est GFR (MDRD) Non-Af 109, BUN/Creatinine Ratio 14.0, Glucose 94, Calcium 9.3, B-Natriuretic Peptide 41.3 06/14/24 03:03: WBC 7.6, RBC 4.72, Hgb 13.0, Hct 37.7, MCV 79.9 L, MCH 27.5, MCHC 34.5, RDW Std Deviation 37.5, RDW Coeff of Quinten 13.2, Plt Count 288, MPV 9.6, Immature Gran % (Auto) 0.300, Neut % (Auto) 59.2, Lymph % (Auto) 23.7, Fajardo % (Auto) 11.1 H, Eos % (Auto) 5.0, Baso % (Auto) 0.7, Absolute Neuts (auto) 4.5, Absolute Lymphs (auto) 1.81, Nucleated RBC % 0, APTT > 200.0 H*, Sodium 139, Potassium 3.9, Chloride 108 H, Carbon Dioxide 24.0, Anion Gap 7, BUN 8, C reatinine 0.49 L, Estim Creat Clear Calc 48.06, Est GFR (MDRD) Af Amer 158, Est GFR (MDRD) Non-Af 130, BUN/Creatinine Ratio 16.3, Glucose 102, Calcium 8.7, Phosphorus 3.5, Magnesium 1.9, Total Bilirubin 0.50, AST 21, ALT 19, Alkaline Phosphatase 128 H, Lactate Dehydrogenase 214, Total Protein 7.3 06/14/24 03:03: Total Protein Cancelled, Albumin 3.4, Globulin 3.9 06/14/24 03:03: Globulin Cancelled, Albumin/Globulin Ratio 0.9 06/14/24 03:03: Albumin/Globulin Ratio Cancelled, TSH 1.950 Imaging Radiology Impression Ribs w/Chest X-Ray 06/13/24 17:29 IMPRESSION: No evidence of displaced rib fracture. Complete opacification of the right hemithorax. Electronically Signed: Chuy Reina DO at 17:42 EST , Chest CT 06/13/24 17:59 IMPRESSION: Left pulmonary embolism. Large right pleural effusion with complete collapse of the right lung. Electronically Signed: Chuy Reina DO at 19:14 EST , ADDENDUM: 06/13/24 1932 IMPRESSION: Left pulmonary embolism. Large right pleural effusion with complete collapse of the right lung. N.B. : The above Results were Read Back by Chuy Reina DO to Bony Mancilla DO, and understanding confirmed on 06/13/2024 19:25:41 (ET). Electronically Signed: Chuy Reina DO at 19:14 EST , Charges/Coding Visit Charges Inpatient E&M: 34459 Init Hosp L3
[2024-06-14 11:02] LABS: Partial Thromboplast Time 65.8 Seconds (24.1-36.2)
--- NOTE | 2024-06-14 11:09 | CASEMGMT ---
KATELYN HO Assessment Face to Face with patient for initial transition planning/care coordination assessment. KATELYN HO introduced self and role at [facility], pt voices understanding. Pt is A&Ox4 and is resting comfortably in bed and is calm. Care providers, pharmacy, and demographics verified. Admitting dx: Massive Right Pleural Effusion LACE Strata: 2 PCP: Wolf Puentes Specialists: Denies Preferred Pharmacy: [facility] Insurance: [employer] Prescription Benefit: Yes LNOK: Dakota Paige (SSON), Tomeka Sully (GD) Living Arrangements: Pt lives alone in a single story home with two steps to enter ADLs/IADLs: Pt reports that she is mainly independent but has neighbors that are able to assist as needed Transportation: Pt states that she normally drives but is currently unable as she recently had eye surgery. Pt states that Dakota drives her DME: [employer]. Cane. BP Monitor. Shower chair with grab bars HHC/SNF: Denies HH history. Reports history at [facility] in 2021. Pt?s goal: Return to PLOF Plan: TBD. 6-click is 13. Follow for new blood thinning medication. PT/OT evaluations are pending. Anticipate HH vs SNF. CM and SW to continue to follow. Danilo Casey RN, CM
[2024-06-14] MEDS: Senna/Docusate Sodium 1 Tablet 2 TABLET PO (11:21)
[2024-06-14] MEDS: Polyethylene Glycol 3350 17 GM PACKET PO (11:21)
[2024-06-14] MEDS: Bisacodyl 5 MG Tablet 10 MG PO (11:23)
--- NOTE | 2024-06-14 13:44 | CASEMGMT ---
Therapy is recommending patient go somewhere for rehab. SW met with patient. Patient was upset and wanted something to eat and drink. Patient has an NPO sign on her door. SW told patient SW will have to check with her nurse. RAMIRO introduced self and role at [facility]. SW explained therapy's recommendation for assisted facility. Patient stated she does not know right now. SW told patient SW can talk to her nurse about her having something to eat or drink. SW came out to the nurses station and noted patient may be transferred. RAMIRO confirmed this with furnace charger. glove maker then spoke with RN and she will get patient something to drink. SW will hold off on pursing SNF choices due to possible transfer. Eli Villegas LABORER OPERATOR DATA INPUT CLERK
--- NOTE | 2024-06-14 13:47 | CASEMGMT ---
Insurance review for hospitals In-network with[facility] insurance if transfer is recommended is as follows: [facility], [facility], [facility], [place], [facility], [facility], [facility], [facility], [place], [facility]), and . Maral Sol, Discharge Planning Asst.
[2024-06-14 14:08] VITALS: BP 146/91; PULSE 73; RESP 18; TEMP 36.7; O2SAT 95
[2024-06-14 17:47] LABS: Partial Thromboplast Time 48.2 Seconds (24.1-36.2)
[2024-06-14] MEDS: Heparin Injection (Vial) 5,000 UNIT/ML VIAL IV (17:54)
[2024-06-14 21:15] VITALS: BP 134/83; PULSE 70; RESP 18; TEMP 36.2; O2SAT 94
--- NOTE | 2024-06-15 10:57 | PCM.DC.SUM ---
Providers Date of Admission: 06/13/24 Date of Discharge: 06/14/24 Primary Care Physician: Dr. Wolf Puentes, DO Consultations 06/13/24 22:02 Consult: [facility] / Pulmonary Medicine Routine Consulting Provider: Intensivists/Pulmonary Med Reason for Consult: Massive Right Effusion after recent Fall with Left PE. EMERGENT Consult: No MD Notified: Yes Date Notified: 06/13/24 Time Notified: 22:02 Method of Notification: ED Physician Initiated Reason For Visit: MASSIVE RIGHT PLEURAL EFFUSION AFTER FALL AND LEFT Diagnosis Discharge Diagnosis (1) Pulmonary embolism: Status: Acute Code(s): I26.99 - Other pulmonary embolism without acute cor pulmonale Qualifiers: Pulmonary embolism type: other Chronicity: acute Acute cor pulmonale presence: without acute cor pulmonale Qualified Code(s): I26.99 - Other pulmonary embolism without acute cor pulmonale (2) Pleural effusion, right: Status: Acute Code(s): J90 - Pleural effusion, not elsewhere classified Plan 73-year-old female was admitted with posterior rib and thoracic back pain that started after a fall about 2 weeks ago. It was constant worse with certain movements, aching in type. Predominantly over right rib area. History of stroke with residual right-sided weakness. 1. CTA of the chest confirming complete opacification of the Right lung along with a Pulmonary Embolism of the Left lung after recent Mechanical Fall with a large Right Pleural Effusion - Admit to PCU. Keep NPO for possible thoracentesis. Pain control. Consult pulmonology Chest x-ray and CTA initially reviewed and shows right lung complete opacification. Echo from March 2022 reported EF 65%, LA mildly enlarged. Mild MR. Mild TR. RVSP 33 mmHg. Repeat echo ordered 06/14: Ultrasound thorax shows loculated fluid in the right large pleural effusion therefore not amenable for thoracocentesis. Dr. Lu called me that she might need VATS or surgical chest tube with intrapleural fibrinolytics.Therefore, I called [facility] and talked to the container coordinator and exchange clinical information and indication for transfer. Patient on IV heparin drip. Troponin and BNP normal. No evidence of right heart strain. I talked to the hospitalist of Dr. Fritz Baron Clinical information. He accepted the patient and patient will need thoracic surgery consult Dr. Palm. 2. History of CVA; with residual Right-sided weakness and progressively worsening balance resulting in fall due to Generalized Weakness with Ambulatory Dysfunction precipitating #1 - PT/OT and Case Management to see patient on-rounds in the AM for further recommendations regarding possible subacute rehabilitation with help appreciated in advance. 3. OA; with history of Right hip fracture - Stable. Give Tylenol prn. 4. Hypokalemia of 3.2 mmol/L present on admission: Potassium was replaced. Repeat K3.9. Serum magnesium and phosphorus normal. 5. Essential hypertension - Continue home medications give Hydralazine IV prn for systolic blood pressure > 160 mmHg. 6. Hyperlipidemia - Resume statin. 7. PAF; with RVR - Patient currently in NSR. INR 1.2. 8. History of vertigo; on prn meclizine - Resume prn meclizine. 9. History of hysterectomy - Noted. 10. History of cataract surgery - Noted. 11. DVT prophylaxis - SCD's only with suspected blood in Right pleural effusion after recent fall. Patient was transferred to [facility] about 11:24 PM on 06/24/2024 Medications at Discharge Home Medications atorvastatin 80 mg tablet 80 mg PO QHS #30 TABLETS 05/15/14 amlodipine 5 mg tablet 5 mg PO DAILY 04/06/24 losartan 25 mg tablet 25 mg PO QHS 04/06/24 meclizine 12.5 mg tablet 12.5 mg PO TID PRN PRN dizziness 06/13/24 Physical Exam Narrative Please see the exam finding on 02/2024 Weight / BMI Weight Weight: 118 lb 6.212 oz Body Mass Index (BMI) 21.6 ABG / Lab / Microbiology Data 06/14/24 03:03 06/14/24 03:03 Laboratory: Laboratory Results - last 24 hr 06/14/24 17:14: APTT 48.2 H Radiography Diagnostic Testing: Radiology Impression Venous Doppler Study 06/14/24 07:28 Interpretation Summary Deep veins of the lower extremities are bilaterally patent and compressible segmentally. There is no evidence of deep vein thrombosis on either side. Valvular competence appears intact within the proximal deep venous systems bilaterally. The great saphenous veins appear bilaterally patent and compressible segmentally. Ordering Physician: Vlad Vyas Referring Physician: Wolf Puentes Performed By: Sofi Dimas RDCS, RVT Meaningful Use Info Meaningful Use Meaningful Use Diagnoses (Choose all that apply): None applicable Ischemic Stroke Statin Dosing Therapy Reference: STATIN DOSE THERAPY REFERENCE: * Patients > 75 years receive moderate or high dose statin therapy. * Patients 75 years or YOUNGER should receive HIGH intensity statin dose unless contraindicated. You will be required to document reason for non-treatment if statin daily dose does not meet guidelines. HIGH DOSE STATIN THERAPY DAILY Atorvastatin > than or = to 40 mg Rosuvastatin > than or = to 20 mg Amlodipine + Atorvastatin > than or = to 2.5/40 mg Ezetimibe + Simvastatin 10/80 mg Simvastatin 80mg Discharge Plan Admission Admit Date/Time: 06/13/24 21:55 Attending Provider: Greg Castellano Primary Care Provider: Wolf Puentes Consulting Providers: Graham Joseph; Devon Briggs; Remberto Woods; Himanshu Lu; Vlad Talbot; Paul Mcdowell; Steven Bhardwaj; Glory Goodman; Kevin Baker; Wilner Otoole; Lexi Montiel; Davis Rivera; Jonatan Jenkins; Amado Jc; Keny Shafer; Ethan Sagastume; Estevan Phelps; Freddy Dickens; Vlad Vyas Discharge Orders/Prescriptions Prescriptions: No Action atorvastatin 80 MG tablet 80 mg PO QHS Qty: 30 0RF Patient Comments: cholesterol lowering meclizine 12.5 mg tablet 12.5 mg PO TID PRN PRN (Reason: dizziness) losartan 25 mg tablet 25 mg PO QHS amlodipine 5 mg tablet 5 mg PO DAILY Referrals / Follow Up: Wolf Puentes DO [Primary Care Provider] - Disposition Disposition (needs filled in before D/C Order can be placed): Acute Care Hospital Charges/Coding Visit Charges Inpatient E&M: 79380 Disch Hosp >30min
== END 2024-06-14 22:47 | disposition short-term general hospital (02) | DRG 176 ==
LOC: ED 20:26 → PCU 22:53
PROVIDERS: Internal Medicine Critical Care Medicine; Admitting Provider Internal Medicine; Emergency Provider Emergency Medicine; PCP Preventive Medicine Occupational Medicine; Visit Provider Internal Medicine
DX: I26.99 Other pulmonary embolism without acute cor pulmonale (principal); I69.351 Hemiplegia and hemiparesis following cerebral infarction affecting right dominant side; J90 Pleural effusion, not elsewhere classified; J98.19 Other pulmonary collapse; I10 Essential (primary) hypertension; I48.0 Paroxysmal atrial fibrillation; S20.211A Contusion of right front wall of thorax, initial encounter; E78.5 Hyperlipidemia, unspecified; E87.6 Hypokalemia; W19.XXXA Unspecified fall, initial encounter; R91.8 Other nonspecific abnormal finding of lung field; R53.1 Weakness; Z90.710 Acquired absence of both cervix and uterus
CPT/HCPCS: 36415; 71101; 71260; 76604; 80048; 80053; 83615; 83735; 83880; 84100; 84443; 85025; 85610; 85730; 93306; 93970; 97162; 97166; 97802; 99284; Q9967; A4216

== ENCOUNTER 2024-07-03 14:01 | Emergency (ER) | payer MEDICARE, SELFPAY ==
[2024-07-03] VITALS (7 sets, daily range): BP systolic 80–86; BP diastolic 49–62; PULSE 76–98; RESP 13–19; TEMP 35.7–36.9; O2SAT 90–98; BMI 22.5
--- NOTE | 2024-07-03 14:35 | RAD_ITS ---
EXAM: XR CHEST, 1 VIEW CLINICAL INDICATION: chest tube TECHNIQUE: Frontal view of the chest. COMPARISON: 06/13/2024 FINDINGS: LUNGS AND PLEURAL SPACES: There is been a decrease in pleural effusion or airspace disease in the right lung with patchy areas of normal aerated lung seen in the right upper and lower lobes. A large effusion and airspace disease still persists on the right. No pneumothorax. HEART: Unremarkable. Cardiac silhouette not enlarged. MEDIASTINUM: Central airways and mediastinal contour are unremarkable. BONES/JOINTS: Unremarkable. No acute fracture. SOFT TISSUES: Unremarkable. RAD/Chest 1 View (Portable) IMPRESSION: Large right-sided effusion and airspace disease. There is normally aerated lung seen on today''s exam compared to the reference exam. Electronically Signed: Oliver Giron MD at 15:25 EST ,
--- NOTE | 2024-07-03 14:46 | CT_ITS ---
EXAM: CT CHEST WITHOUT INTRAVENOUS CONTRAST CLINICAL INDICATION: fever, recent R chest tube, concern for empyema TECHNIQUE: Helically acquired images were obtained of the chest without intravenous contrast. This CT exam was performed using one or more of the following dose reduction techniques: automated exposure control, adjustment of the mA and/or kV according to patient size, and/or use of iterative reconstruction technique. COMPARISON: 06/13/2024 FINDINGS: LUNGS AND PLEURAL SPACES: There are collections of gas and fluid with air-fluid levels in the right chest which may represent multiple pulmonary abscesses or empyemas. There is consolidation in the right upper and lower lobes. No mass. HEART: Unremarkable. Heart size is normal. No pericardial effusion. No significant coronary artery calcifications. MEDIASTINUM: Unremarkable. No mediastinal or hilar adenopathy. Esophagus is unremarkable. No hiatal hernia. THYROID: Unremarkable. No thyroid lesions. BONES/JOINTS: Unremarkable. No suspicious lytic or blastic abnormality. VASCULATURE: Unremarkable. Thoracic aorta is non-dilated. CT/Chest without Contrast IMPRESSION: Large loculated fluid collection on the right now that has collections of gas within the fluid as well as an air-fluid level compatible with an abscess or empyema. There is persistent consolidation of the right upper middle and lower lobes compatible with pneumonia. Electronically Signed: Oliver Giron MD at 15:39 EST ,
[2024-07-03] MEDS: 0.9% Normal Saline (1000mL) 1,000 ML 999 ML IV ×2 (15:06→19:51)
--- NOTE | 2024-07-03 15:14 | EDS_ITS ---
HPI History of Present Illness Chief Complaint: Chest Other Informant: patient and family Narrative Narrative: Patient is a 73-year-old female with recent diagnosis of stage IV lung cancer and hospitalization with chest tube at [facility]. She was discharged yesterday to [facility] with palliative care. She was reported to develop a fever today of 100.9, started having drainage from her prior chest tube site on the right, is generally weak, tachycardic and had low blood pressures. She was into the ER for further evaluation. Patient states she feels weak and has discomfort at her prior chest tube site but denies any other complaints at this time. Patient's daughter states that up until today she was not having any drainage from the chest tube site. She supposed to follow-up outpatient with oncology. Patient and family has not completely decided how aggressive they want to be with her treatment. Patient states she was not on any oxygen in the hospital. She is currently on 2 L. Through [facility] for hospitalization 06/14-07/02 This is a 73-year-old female with Yemi history of hypertension, hyperlipidemia, stroke, closed hip fracture who presented with complaints of shortness of breath. She was noted to have complete collapse of the right lung on chest x-ray. CTA chest confirmed opacification of the right lung (with concern for lung mass) along with a pulmonary embolism of the left lung and likely hemorrhagic pleural effusion. The patient was seen by CT surgery and pulmonology and placed on a heparin drip. She did have a chest tube at 1 point in the right. The patient underwent EBUS on 06/19 with lymph node biopsy with concern for non-small cell lung cancer. The patient was reviewed by tumor board and no plans for immediate surgical intervention. She was recommended to have outpatient follow-up with oncology. The patient had removal of her chest tube on 06/26. Patient was transitioned from heparin gtt to Eliquis. She had a bone scan with uptake within ribs on right. 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 She was seen by palliative care as her cancer is incurable and referral made to [facility] in [place]. Her options outpatient would be chemo or immunotherapy depending on her frailty. Patient discharged to SNF but overall has poor prognosis. [facility] Medical History Pulmonary embolism Pleural effusion, right Fracture of right hip Hyperlipidemia Hypertension Hx of completed stroke Home Medications ?Medication ?Instructions ?Recorded ?Last Taken ?Type atorvastatin 80 mg tablet 80 mg PO QHS #30 TABLETS 05/15/14 06/12/24 Rx amlodipine 5 mg tablet 5 mg PO DAILY 04/06/24 06/13/24 History losartan 25 mg tablet 25 mg PO QHS 04/06/24 06/13/24 History meclizine 12.5 mg tablet 12.5 mg PO TID PRN PRN dizziness 06/13/24 Unknown History Allergy/AdvReac Type Severity Reaction Status Date / Time No Known Allergies Allergy Verified 07/03/24 14:07 Surgical History Hx of cataract surgery H/O: hysterectomy Social History household members: none Smoking Status: Never smoker alcohol intake: never substance use type: does not use ROS ROS ED Constitutional Constitutional ED: Reports chills and fever(s) ENT ENT ED: Denies rhinorrhea or sore throat Cardiovascular Cardiovascular: Denies chest pain or palpitations Respiratory/Chest Respiratory/Chest: Reports dyspnea and other Details: Drainage from right chest wall at prior chest tube site. Pain in that area. ; Denies cough Gastrointestinal Gastrointestinal: Denies abdominal pain, nausea or vomiting Genitourinary Genitourinary ED: Reports other Details: Decreased urine output ; Denies dysuria Musculoskeletal Musculoskeletal: Denies arthralgias or myalgias Integumentary Denies rash Neurologic Neurologic: Reports weakness; Denies headache(s) or paresthesias Hematologic/Lymphatic Hematologic/Lymphatic: Reports easy bleeding, easy bruising and other Details: On Eliquis EXAM Physical Exam Const Vital Signs: 07/03/24 14:03 07/03/24 14:30 07/03/24 14:53 Temperature 96.2 F L 98.5 F Temperature Source Temporal Oral Pulse Rate 76 83 Respiratory Rate 18 17 Blood Pressure 83/49 L 86/58 L Blood Pressure Mean 60 67 Pulse Ox 92 90 Oxygen Delivery Method Nasal Cannula Room Air Nasal Cannula Oxygen Flow Rate (L/min) 2 2 07/03/24 16:00 07/03/24 17:00 07/03/24 18:00 Temperature 98.1 F 98.5 F 98.3 F Temperature Source Oral Oral Oral Pulse Rate 81 78 80 Respiratory Rate 16 13 13 Blood Pressure 83/62 L 80/49 L 85/58 L Blood Pressure Mean 69 59 66 Pulse Ox 98 98 98 Oxygen Delivery Method Room Air Room Air Nasal Cannula Oxygen Flow Rate (L/min) 2 Positive well nourished and well developed General Appearance ED: well developed and NAD HEENT Reports dry mucous membranes Negative for trauma Mouth ED: Yes dry mucous membranes Mouth: dry mucous membranes Eyes PERRL and EOMs intact bilaterally Neck supple and no JVD Chest Wall palpation of chest normal Chest Narrative: There is a surgical incision of the right chest wall, midaxillary line that is draining serous/purulent drainage. Resp normal respiratory effort Resp Narrative: Diminished breath sounds on the right. No increased work of breathing. Auscultation: Negative for rhonchi or wheezes Cardio regular rate and regular rhythm GI normal to inspection, nondistended, normoactive bowel sounds and non-tender Extremity normal to inspection General Extremety ED: Negative for edema General Extremity: Negative for edema Neuro oriented x3 Sensorium / Orientation: alert Motor Exam: general weakness Psych mental status grossly normal Skin Skin Narrative: No cellulitic changes MDM MDM MDM Narrative Medical decision making narrative: Patient is evaluated for fever, generalized weakness and draining from prior thoracostomy site. On exam patient is nontoxic-appearing but does appear generally weak. She has soft blood pressures. She does have purulent sanguinous discharge coming from her prior chest tube site on the right chest wall. Sepsis workup is initiated. Patient started on liter of IV fluid. Is initially slow to go and because of where the IVs out and the patient he was bending her arm. I did speak with patient's family about how aggressive they would like to be with her care. This time they would be interested in surgical intervention if needed and more aggressive care and not just hospice so will transfer. Patient does have a leukocytosis of 11.6 with a leftward shift. CMP shows an uptrending alkaline phosphatase but that is also consistent with her diagnosis of metastatic lung cancer. Urinalysis only shows rare bacteria and 10-25 white blood cells but does show 500 leukocyte esterase. Culture sent. Blood cultures are pending. Culture of the purulent thoracic fluid is also sent. Patient started on broad-spectrum antibiotics, vancomycin and Zosyn especially given her recent extended hospitalization. Chest x-ray viewed by myself as well as radiology does show right sided effusion and airspace disease. CT of the chest shows a large loculated fluid collection of the right that now has collections of gas within the fluid as well as an air-fluid level compatible with an abscess or empyema. There is also persistent consolidation of the right lung compatible with pneumonia. Patient is only on 2 L of oxygen at this time. I did speak with pulmonology/ICU at [facility] as this is where she was just discharged from. I spoke with Dr. Brown. He is familiar with the patient. He is agreeable to transfer. Given her soft blood pressures in the setting of acute infection/empyema but with a normal lactate and minimal O2 requirements recommend transfer to the ER. From the ER they can determine where she should be admitted to. I spoke with the ER physician, Dr. Velasquez who accepts. Patient and family are agreeable with this plan of care. History & Record Review Additional record(s) reviewed:: Prior inpatient record (See HPI-Clinisync reviewed) Lab Data Attestation: I reviewed the patient's lab results. Labs: Laboratory Results - last 24 hr 07/03/24 07/03/24 14:55 16:20 WBC 11.6 H RBC 3.01 L Hgb 8.3 L Hct 25.5 L MCV 84.7 MCH 27.6 MCHC 32.5 RDW Std Deviation 49.0 H RDW Coeff of Quinten 15.9 H Plt Count 566 H MPV 9.4 Immature Gran % (Auto) 2.000 H Neut % (Auto) 80.4 H Lymph % (Auto) 7.8 L [place] % (Auto) 6.7 Eos % (Auto) 2.7 Baso % (Auto) 0.4 Absolute Neuts (auto) 9.3 H Absolute Lymphs (auto) 0.90 Nucleated RBC % 0 PT 31.6 H INR 3.1 APTT 46.0 H Sodium 132 L Potassium 3.7 Chloride 99 Carbon Dioxide 27.0 Anion Gap 6 BUN 19 H Creatinine 0.64 Estim Creat Clear Calc 48.06 Est GFR (MDRD) Af Amer 116 Est GFR (MDRD) Non-Af 96 BUN/Creatinine Ratio 29.6 H Glucose 112 H Lactic Acid 1.1 Calcium 8.1 L Total Bilirubin 1.30 H AST 156 H ALT 89 H Alkaline Phosphatase 360 H Total Protein 6.5 Albumin 1.8 L Globulin 4.7 H Albumin/Globulin Ratio 0.4 L Urine Color [place] Urine Clarity Sl. Cloudy Urine pH 6.0 Ur Specific [place] 1.020 Urine Protein 30 H Urine Glucose (UA) Normal Urine Ketones 5 H Urine Occult Blood 10 H Urine Nitrite Negative Urine Bilirubin 1 H Urine Urobilinogen 8 H Ur Leukocyte Esterase 500 H Urine RBC 10-25 SEEN Urine WBC 10-25 SEEN Ur Squamous Epith Cells 5-10 SEEN Ur Transition Epith Cell 0-5 SEEN Amorphous Sediment 1+ URATE Urine Bacteria RARE Urine Mucus 0 SEEN Radiography Diagnostic Testing: Clinical Impression(s) from Imaging Studies Chest X-Ray 07/03/24 14:35 IMPRESSION: Large right-sided effusion and airspace disease. There is normally aerated lung seen on today''s exam compared to the reference exam. Electronically Signed: Oliver Giron MD at 15:25 EST , Chest CT 07/03/24 14:46 IMPRESSION: Large loculated fluid collection on the right now that has collections of gas within the fluid as well as an air-fluid level compatible with an abscess or empyema. There is persistent consolidation of the right upper middle and lower lobes compatible with pneumonia. Electronically Signed: Oliver Giron MD at 15:39 EST , Management Discussion w/another healthcare provider: [employer] Other (Summer ER doctor for transfer ) Discharge Plan Triage Chief Complaint: Chest Other ED Provider: Angelina Benitez Dx/Rx/DC Orders Clinical Impression: Empyema, right, Hypotension, Leukocytosis, Cancer, metastatic to lung Prescriptions: No Action atorvastatin 80 MG tablet 80 mg PO QHS Qty: 30 0RF Patient Comments: cholesterol lowering meclizine 12.5 mg tablet 12.5 mg PO TID PRN PRN (Reason: dizziness) losartan 25 mg tablet 25 mg PO QHS amlodipine 5 mg tablet 5 mg PO DAILY Primary Care Provider: Wolf Puentes Referrals: Wolf Puentes DO [Primary Care Provider] - Print Language: Peruvian Disposition Disposition: Acute Care Hospital Discharge Location: [facility]
[2024-07-03 15:16] LABS: Absolute Neutrophil Count 9.3 X10^3/uL (2.0-7.7); Basophil# 0.05 X10^3/uL; Basophil% 0.4 % (0-1); Eosinophil# 0.31 X10^3/uL; Eosinophils% 2.7 % (0-5); Hematocrit 25.5 % (37-47); Hemoglobin 8.3 g/dL (12.0-15.0); Lymphocyte % 7.8 % (19-41); Mean Corp Hgb Conc 32.5 g/dL (32-36); Mean Corpuscular Hgb 27.6 pg (27.0-32.0); Mean Corpuscular Volume 84.7 fL (81-99); Mean Platelet Vol. 9.4 fl (6.2-12.0); Monocyte# 0.78 X10^3/uL; Monocyte% 6.7 % (0-10); NRBC Flagged by Analyzer 0 % (0-5); Neutrophil # 9.29 X10^3/uL (2.7-7.7); Neutrophil % 80.4 % (47-70); Platelet Count 566 K/mm3 (150-450); RBC Distribution Width CV 15.9 % (11.6-14.6); Red Blood Count 3.01 M/mm3 (4.2-5.4); White Blood Count 11.6 K/mm3 (4.4-11.0)
[2024-07-03 15:25] LABS: International Normalized Ratio 3.1; Prothrombin Time (Protime)PT. 31.6 SECONDS (11.7-14.9)
[2024-07-03 15:31] LABS: ALB/GLOB Ratio 0.4 RATIO (0.9-2.4); AST(SGOT) 156 U/L (15-37); Alanine Aminotransfer ALT/SGPT 89 U/L (13-56); Albumin, Serum 1.8 g/dL (3.2-5.0); Alkaline Phosphatase 360 U/L (45-117); Anion Gap 6 (5-15); BUN 19 mg/dL (7-18); BUN/Creat Ratio 29.6 RATIO (10-20); Calcium,Total 8.1 mg/dL (8.5-10.1); Chloride 99 mmol/L (98-107); Creatinine, Serum 0.64 mg/dL (0.55-1.02); EST Glomerular Filtration Rate 96 mL/min (>60); Est Glom Filt Rate - Afr Amer 116 mL/min (>60); Estimated Creatinine Clearance 48.06 ml/min; Globulin 4.7 g/dL (2.2-4.2); Glucose 112 mg/dL (74-106); Potassium 3.7 mmol/L (3.5-5.1); Protein, Total 6.5 g/dL (6.4-8.2); Sodium Level 132 mmol/L (136-145)
[2024-07-03 15:38] LABS: Lactic Acid 1.1 mmol/L (0.4-1.9)
[2024-07-03 16:36] LABS: Mucous, Urine 0 SEEN /hpf (<or=2+)
[2024-07-03 16:40] LABS: Color, Urine Amber (Yellow); Glucose, Dipstick Normal (Normal); Ketone-Dipstick 5 mg/dl (Negative); Leukocyte Esterase-Dipstick 500 /ul (Negative); Nitrite-Dipstick Negative (Negative); Occult Blood-Urine 10 /ul (Negative); Protein-Dipstick 30 mg/dl (Negative); Urine Clarity Sl. Cloudy (Clear); Urine Urobilinogen 8 mg/dl (Normal)
[2024-07-03 16:50] LABS: Urine Bilirubin Dipstick 1 mg/dL (Negative)
[2024-07-03 16:53] LABS: Bacteria RARE /hpf (None Seen); Red Blood Cells-Urine 10-25 SEEN /hpf (0-5); Squamous Epithelial Cells - UA 5-10 SEEN /hpf (5-10); Transitional Epithelial - Ur 0-5 SEEN /hpf (0-5); White Blood Cells 10-25 SEEN /hpf (0-5)
[2024-07-03 16:54] LABS: Amorphous Sediment 1+ URATE
[2024-07-03] MEDS: Piperacil/Tazobactam 4.5 GM in 0.9% Normal Saline (100mL MB+) 100 ML IV (16:54)
[2024-07-03] MEDS: Vancomycin HCl 1,500 MG in 0.9% Normal Saline (500mL Bag) 500 ML 250 MG IV (18:49)
== END 2024-07-03 20:03 | disposition short-term general hospital (02) ==
PROVIDERS: Emergency Provider Emergency Medicine; PCP Preventive Medicine Occupational Medicine; Visit Provider Emergency Medicine
DX: J86.9 Pyothorax without fistula (principal); C78.01 Secondary malignant neoplasm of right lung; C80.1 Malignant (primary) neoplasm, unspecified; I95.9 Hypotension, unspecified; D72.829 Elevated white blood cell count, unspecified; I10 Essential (primary) hypertension; E78.5 Hyperlipidemia, unspecified; Z79.899 Other long term (current) drug therapy
CPT/HCPCS: 71045; 71250; 80053; 81001; 83605; 85025; 85610; 85730; 87040; 87070; 87077; 87086; 87088; 87186; 87205; 87631; 93005; 96365; 96366; 96368; 99285; J7030; J7040; A4216

== ENCOUNTER 2025-06-09 16:00 | Emergency (ER) | payer MEDICARE, SELFPAY ==
[2025-06-09 16:03] VITALS: BP 92/64; PULSE 91; RESP 16; TEMP 36.4; O2SAT 90; BMI 17.9
--- NOTE | 2025-06-09 16:44 | EX.ED.GENINJ ---
HPI History of Present Illness Chief Complaint: Fall Detail of Chief Complaint: Patient presents for nursing facility by ambulance because of bilateral hip Informant: EMS Onset/Context/Timing Onset: - (Patient apparently fell today.) Mechanism/Context: Blunt Injury Location of pain/injuries: Right hip and Left hip Location: Patient is demented. She is on hospice. Unable to determine Current Severity: Unknown Maximum Severity: Unknown Worsened by: Unknown Relieved by: Unknown Associated Symptoms Associated Symptoms: Negative for Parasthesias, Weakness, Loss of function, Inability to ambulate or Loss of consciousness Narrative Narrative: Patient is a 74-year-old woman. She presents from nursing facility by ambulance after reported bilateral hip pain status post fall. She is in hospice. She has a fungating mass inferior quadrant of her right breast. She answers yes to every question asked. [facility] Medical History Pulmonary embolism Pleural effusion, right Fracture of right hip Hyperlipidemia Hypertension Hx of completed stroke Home Medications ?Medication ?Instructions ?Recorded ?Last Taken ?Type atorvastatin 80 mg tablet 80 mg PO QHS #30 TABLETS 05/15/14 06/12/24 Rx amlodipine 5 mg tablet 5 mg PO DAILY 04/06/24 06/13/24 History losartan 25 mg tablet 25 mg PO QHS 04/06/24 06/13/24 History meclizine 12.5 mg tablet 12.5 mg PO TID PRN PRN dizziness 06/13/24 Unknown History Allergy/AdvReac Type Severity Reaction Status Date / Time No Known Allergies Allergy Verified 07/03/24 14:07 Surgical History Hx of cataract surgery H/O: hysterectomy Social History household members: none Smoking Status: Never smoker alcohol intake: never substance use type: does not use ROS ROS ED Review of Systems ROS Unobtainable: due to mental status EXAM Physical Exam Const Vital Signs: 06/09/25 16:03 Temperature 97.6 F L Temperature Source Temporal Pulse Rate 91 Respiratory Rate 16 Blood Pressure 92/64 Blood Pressure Mean 73 Pulse Ox 90 Oxygen Delivery Method Room Air Positive well developed and cachectic General Appearance ED: well developed, cachectic and NAD Nutritional Appearance: cachectic HEENT Reports TM's clear atraumatic; Negative for tenderness Nose: Negative for septum abnormal Tympanic Membrane ED: Yes TM's clear Eyes PERRL and EOMs intact bilaterally Neck General: Negative for tenderness Chest Wall palpation of chest normal; Negative for inspection of chest normal Chest Narrative: Patient has a obvious visible mass inferior outer quadrant right breast that has eroded through the skin. Her shirt is moist because of this. Resp normal respiratory effort and clear to auscultation bilaterally Cardio regular rhythm, S1 normal heart sound, S2 normal heart sound and no murmurs GI normal to inspection, nondistended, normoactive bowel sounds, non-tender, non-distended and no masses Back/Spine normal to inspection and no thoracic nor lumbar tenderness Back/Spine Narrative: Patient is able to hold her right and left lower extremity up against gravity greater than 45 degrees. She does have pain to patient over the right and left ischial tuberosity. There is also pain over the pubic symphysis. Extremity normal to inspection and full ROM Neuro No oriented x3, CN's II-XII intact bilaterally and moves all extremities Psych Psych Narrative: Depressed Skin Skin Narrative: Wound right breast previously described MDM MDM MDM Narrative Medical decision making narrative: With pain to palpation pelvis and full active range of motion at the hip, knee and ankle doubt fracture. Patient is in hospice. She is in no distress. Plan is to obtain x-ray of the pelvis to evaluate for contusion versus fracture. Radiography Chest X-Ray - ED: Read by ED Physician (Single view x-ray of the hip was independently interpreted by me. Patient's had prior right hip fracture most likely intertrochanteric. She also has some degenerative arthritic changes noted. There is no ossific gas pattern noted. There is no evidence of fracture or the inferior superior pubic r) and - (There is arthritic changes noted of the left hip joint.) Diagnostic Testing: Clinical Impression(s) from Imaging Studies Pelvis X-Ray 06/09/25 16:45 IMPRESSION: As above. Reading Location: [facility] Discharge Plan Triage Chief Complaint: Fall ED Provider: Stewart Chacon Dx/Rx/DC Orders Clinical Impression: Bony pelvic pain, History of recent fall, Breast cancer, right, Generalized weakness Instructions: ED Contusion, Lower Extremity Prescriptions: No Action atorvastatin 80 MG tablet 80 mg PO QHS Qty: 30 0RF Patient Comments: cholesterol lowering meclizine 12.5 mg tablet 12.5 mg PO TID PRN PRN (Reason: dizziness) losartan 25 mg tablet 25 mg PO QHS amlodipine 5 mg tablet 5 mg PO DAILY Primary Care Provider: Wolf Puentes Referrals: Wolf Puentes DO [Primary Care Provider, Family Practice] - As Needed Print Language: Sinhala Disposition Disposition: Home, Self Care
--- NOTE | 2025-06-09 16:45 | RAD_ITS ---
PROCEDURE: RAD/Pelvis 1 or 2 Views
[2025-06-09 18:01] VITALS: BP 108/69; PULSE 67; RESP 16; O2SAT 91
[2025-06-09 19:07] VITALS: BP 139/93; PULSE 77; RESP 16; TEMP 37; O2SAT 95
[2025-06-09 20:00] VITALS: PULSE 73; RESP 16; O2SAT 96
== END 2025-06-09 22:30 | disposition home or self-care (01) ==
PROVIDERS: Emergency Provider Emergency Medicine; PCP Preventive Medicine Occupational Medicine; Visit Provider Emergency Medicine
DX: R10.20 Pelvic and perineal pain unspecified side (principal); C50.911 Malignant neoplasm of unspecified site of right female breast; R53.1 Weakness; Z90.710 Acquired absence of both cervix and uterus; I10 Essential (primary) hypertension; E78.5 Hyperlipidemia, unspecified; W19.XXXA Unspecified fall, initial encounter; Y92.89 Other specified places as the place of occurrence of the external cause; Z79.899 Other long term (current) drug therapy
CPT/HCPCS: 72170; 99284